=== PATIENT | female | born 2000 | race Caucasian/White ===

== ENCOUNTER 2018-10-03 15:51 | Emergency (ER) | payer SELFPAY ==
[2018-10-03 16:01] VITALS: BP 135/122
[2018-10-03] MEDS ORDERED: Ondansetron 4 MG Tab.DIS PO ONE (16:54)
--- NOTE | 2018-10-03 16:57 | EDM.PDOC ---
ED HPI GENERAL MEDICAL PROBLEM - General Chief Complaint: Gastrointestinal Problem Stated Complaint: VOMITING Time Seen by Provider: 10/03/18 16:22 Source of Information: Reports: Patient History Limitations: Reports: No Limitations - History of Present Illness INITIAL COMMENTS - FREE TEXT/NARRATIVE: Patient is a 18-year-old female presents ED complaining of persistent nausea and vomiting with diarrhea. Patient states last night approximately midnight she started having episodes of nausea and vomiting and has not been able to keep any liquids or foods down. Approx. 3:00 in the morning she started to have diarrhea. She has been attempting to drink fluids. Currently denies any dizziness with standing. There is no abdominal discomfort. Nor any documented fever although at times she's felt hot and cold with vomiting. There's been no ingestion of bad or questionable food. Patient ate chicken at approximately 9: 00 that evening. Denies recent out of country travel or recent sick exposures. No blood within her stool or dark tarry stools noted. States she is not . Last menstrual cycle August 22. She smokes a half pack per day. Alcohol use is none. Recreational drug use includes marijuana. She smokes approximately 1 g of marijuana a day. She denies any additional recreational drugs. She has a past medical history of bipolar and schizophrenia. She is on no medications. 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 Musculoskeletal History: Reports: Back Pain, Chronic Neurological History: Reports: Migraines Psychiatric History: Reports: Addiction, Anxiety, Depression Hematologic History: Reports: Anemia Dermatologic History: Reports: Eczema Social & Family History - Family History Family Medical History: Noncontributory - Tobacco Use Smoking Status *Q: Current Every Day Smoker Years of Tobacco use: 7 Packs/Tins Daily: 0.5 Used Tobacco, but Quit: No - Caffeine Use Caffeine Use: Reports: None - Recreational Drug Use Recreational Drug Use: Yes Drug Use in Last 12 Months: Yes Recreational Drug Type: Reports: Marijuana/Hashish Other Recreational Drug Type: used lat night, Recreational Drug Use Frequency: Daily - Living Situation & Occupation Living situation: Reports: Single Occupation: Unemployed ED ROS GENERAL - Review of Systems Review Of Systems: ROS reveals no pertinent complaints other than HPI. ED EXAM, GI/ABD - Physical Exam Exam: See Below Exam Limited By: No Limitations General Appearance: Alert, WD/WN, No Apparent Distress Ears: Hearing Grossly Normal Throat/Mouth: Normal Inspection, Normal Oropharynx, Normal Voice, No Airway Compromise Head: Atraumatic, Normocephalic Neck: Normal Inspection, Supple Respiratory/Chest: No Respiratory Distress, Lungs Clear, Normal Breath Sounds, No Accessory Muscle Use Cardiovascular: Normal Peripheral Pulses, Regular Rate, Rhythm, No Murmur GI/Abdominal Exam: Normal Bowel Sounds, Soft, No Organomegaly, No Distention, Tender (mild tenderness to the epigastric region with palpation. ) Back Exam: Normal Inspection Extremities: Normal Inspection, Normal Range of Motion, Non-Tender, No Pedal Edema, Normal Capillary Refill Neurological: Alert, Oriented, CN II-XII Intact, Normal Cognition, No Motor/ Sensory Deficits Psychiatric: Normal Affect, Normal Mood Skin Exam: Warm, Dry, Intact, Normal Color, No Rash Course - Vital Signs Last Recorded V/S: Last Vital Signs Temp 97 F 10/03/18 15:58 Pulse 76 10/03/18 15:58 Resp 20 10/03/18 15:58 BP 135/122 H 10/03/18 15:58 Pulse Ox 98 10/03/18 15:58 - Orders/Labs/Meds Meds: Medications Discontinued Medications Generic Name Dose Route Start Last Admin Trade Name Freq PRN Reason Stop Dose Admin Ondansetron HCl 4 mg 10/03/18 16:54 10/03/18 17:06 Zofran Odt PO 10/03/18 16:55 4 mg ONETIME ONE Administration Promethazine HCl 25 mg 10/03/18 17:57 10/03/18 18:02 Phenergan IM 10/03/18 17:58 25 mg ONETIME ONE Administration - Re-Assessments/Exams Free Text/Narrative Re-Assessment/Exam: Vital signs 101/66, heart rate 89, SPO2 100% on room air. Patient afebrile does not appear in acute distress. Differential diagnosis includes: Acute cholecystitis, pancreatitis, gastritis, bowel related, cyclic vomiting syndrome , and or gastroenteritis to name a few. Patient refuses any testing due to the cost. This includes a test. We will start with Zofran and have the patient sip on liquids. Suspect patient has a viral GI bug vs CVS and should resolve on its own accord. Patient states in the past she's never had CVS although it can occur any time. Especially since patient is having epigastric pain, unremitting nausea/vomiting, diarrhea, and headache which fits the diagnosis of CVS. 10/03/18 17:59 patient continued complaining of some nausea. Ordered Phenergan 25 mg IM. 10/03/18 19:19 Reassessment, patient states the nausea has subsided slightly. She is ready to be discharged home. I did offer additional testing prior to discharge she has refused. I suspect this is related to CVS. She was instructed to refrain from marijuana use. In addition we'll send her home with prescription for Zofran. Patient had no questions concerns agree with plan. Return precautions were discussed with the patient. Departure - Departure Time of Disposition: 19:20 Disposition: Home, Self-Care 01 Condition: Good Clinical Impression: Cyclic vomiting syndrome Qualifiers: Vomiting Intractability: non-intractable Nausea presence: with nausea Qualified Code(s): G43.A0 - Cyclical vomiting, not intractable - Discharge Information Prescriptions: Ondansetron [Zofran ODT] 4 mg PO Q6H PRN #10 tab.dis PRN Reason: Nausea/Vomiting Instructions: Nausea and Vomiting, Adult, Cyclic Vomiting Syndrome, Adult, Cannabinoid Hyperemesis Syndrome Referrals: PCP,None [Primary Care Provider] - Forms: ED Department Discharge Additional Instructions: Refrain from marijuana use. Utilize Zofran 4 mg ODT every 6 hours for nausea and vomiting. Stick with a clear liquid diet for the next 24-48 hours. Advance to a bland diet thereafter then to an normal diet when able. Follow-up with a primary care provider this week if symptoms persist. Return to the ED if you develop any new or worsening symptoms.
[2018-10-03] MEDS ORDERED: Promethazine 25 MG/ML SDV IM ONE (17:57)
== END 2018-10-03 19:28 | disposition home or self-care (01) ==
LOC: JD.ED 15:51
DX: G43.A0 Cyclical vomiting, in migraine, not intractable (principal); F17.210 Nicotine dependence, cigarettes, uncomplicated; Z88.6 Allergy status to analgesic agent
CPT/HCPCS: 96372; 99284; A9270; J2550; 99283

== ENCOUNTER 2019-10-24 19:14 | Emergency (ER) | payer MEDICAID, OTHER ==
[2019-10-24 19:42] VITALS: BP 108/78; PULSE 103
[2019-10-24] MEDS ORDERED: Sodium Chloride 0.9% 10 ML Syringe FLUSH PRN (19:44)
--- NOTE | 2019-10-24 19:44 | EDM.PDOC ---
ED HPI GENERAL MEDICAL PROBLEM - General Chief Complaint: SET UP OPERATOR Problem Stated Complaint: 3WKS PG VAGINAL BLEEDING Time Seen by Provider: 10/24/19 19:41 Source of Information: Reports: Patient, RN Notes Reviewed History Limitations: Reports: No Limitations - History of Present Illness INITIAL COMMENTS - FREE TEXT/NARRATIVE: Patient is a 19-year-old female who presents to the ED for evaluation of vaginal bleeding and . Patient states that she just found out she was yesterday. She does not really remember her last menstrual period, but thinks it has been about a month ago, she would put herself at 3 to 4 weeks at this time. She started bleeding today at 1400, and then developed some low abdominal cramping, mostly in the left lower quadrant. Patient states that she is not wearing a pad, but has used toilet paper in her underwear, and has had a changes about 5 times. Patient states that prior to the vaginal bleeding, she did have sex, and then developed the bleeding and pain after this. She also states that she is passing some small clot-like material. Patient did not take any sort of pain medications prior to arrival to the ER. She is not having any dysuria, urinary frequency or urgency, or any hematuria at this time. She states that she has had one other but it was a spontaneous miscarriage, so this would make her a A1. Lower Abdomen Pain Score (Numeric/FACES): 7 - Related Data Allergies Allergy/AdvReac Type Severity Reaction Status Date / Time coconut Allergy Intermediate Anaphylactic Verified 04/01/19 11:55 Shock bee venom protein (honey bee) Allergy Anaphylactic Verified 04/01/19 11:51 Shock ibuprofen AdvReac Vomiting Verified 04/13/19 10:45 Home Meds: Home Meds cephALEXin [Cephalexin] 500 mg PO TID #15 capsule 10/24/19 [Rx] Past Medical History HEENT History: Reports: Impaired Vision Cardiovascular History: Reports: Heart Murmur Respiratory History: Reports: Asthma Genitourinary History: Reports: Pyelonephritis SET UP OPERATOR History: Reports: , Spontaneous (x1), Other (See Below) : 2 Para: 0 Other SET UP OPERATOR History: patient has history of merena and has not had a period for 5-6 months. Musculoskeletal History: Reports: Back Pain, Chronic Neurological History: Reports: Migraines Psychiatric History: Reports: Addiction, Anxiety, Depression Hematologic History: Reports: Anemia Dermatologic History: Reports: Eczema - Infectious Disease History Infectious Disease History: Reports: Chicken Pox Social & Family History - Family History Family Medical History: Noncontributory - Caffeine Use Caffeine Use: Reports: None - Living Situation & Occupation Living situation: Reports: Single Occupation: Unemployed ED ROS GENERAL - Review of Systems Review Of Systems: See Below Constitutional: Denies: Fever, Chills Respiratory: Denies: Shortness of Breath Cardiovascular: Denies: Chest Pain GI/Abdominal: Denies: Abdominal Pain, Constipation, Diarrhea, Nausea, Vomiting : Reports: Pain (low pelvic pain into LLQ), Other (vaginal bleeding). Denies : Dysuria, Frequency, Urgency ED EXAM - Physical Exam Exam: See Below Exam Limited By: No Limitations General Appearance: Alert, WD/WN, No Apparent Distress, Anxious (pt does appear somewhat anxious on exam) Ears: Normal External Exam Nose: Normal Inspection Throat/Mouth: Normal Inspection, Normal Lips, Normal Teeth, Normal Gums, Normal Oropharynx, Normal Voice, No Airway Compromise Head: Atraumatic, Normocephalic Neck: Normal Inspection Respiratory/Chest: No Respiratory Distress, Lungs Clear, Normal Breath Sounds, No Accessory Muscle Use, Chest Non-Tender Cardiovascular: Normal Peripheral Pulses, Regular Rate, Rhythm, No Murmur GI/Abdominal Exam: Normal Bowel Sounds, Soft, No Distention, No Mass, Tender ( low abdomen, over LLQ and suprapubic) (Female) Exam: Normal External Exam, Vaginal Discharge (moderate amount of chung malodorous discharge), Other (Retained foreign body, cotton-like material visualized. This was dislodged, and does appear to be retained tampon.). No: Cervical Dilatation, Vaginal Bleeding, Vaginal Tears Heart Tones: Not Rogers Movement: Not Appreciated Extremities: Normal Inspection, Normal Capillary Refill Neurological: Alert, Oriented, Normal Cognition, No Motor/Sensory Deficits Psychiatric: Normal Affect, Normal Mood, Anxious Skin Exam: Warm, Dry, Intact, Normal Color, No Rash Course - Vital Signs Last Recorded V/S: Last Vital Signs Temp 98.2 F 10/24/19 19:40 Pulse 103 H 10/24/19 19:40 Resp 20 10/24/19 19:40 BP 108/78 10/24/19 19:40 Pulse Ox 100 10/24/19 19:40 - Orders/Labs/Meds Orders: Active Orders 24 hr Category Date Time Status Peripheral IV Care [RC] . DIRECTED Care 10/24/19 19:44 Active PATIENT RETYPE [BBK] Routine Lab 10/24/19 21:58 Ordered Sodium Chloride 0.9% [Saline Flush] Med 10/24/19 19:44 Active 10 ml FLUSH ASDIRECTED PRN Peripheral IV Insertion Adult [OM.PC] Stat Oth 10/24/19 19:44 Ordered Medication Orders Sodium Chloride (Saline Flush) 10 ml FLUSH ASDIRECTED PRN PRN Reason: Keep Vein Open Labs: Laboratory Tests 10/24/19 10/24/19 10/24/19 Range/Units 20:06 20:06 20:06 WBC 20.45 H (3.98-10.04) K/mm3 RBC 4.67 (3.98-5.22) M/mm3 Hgb 13.8 (11.2-15.7) gm/dl Hct 41.7 (34.1-44.9) % MCV 89.3 (79.4-94.8) fl MCH 29.6 (25.6-32.2) pg MCHC 33.1 (32.2-35.5) g/dl RDW Std Deviation 45.7 (36.4-46.3) fL Plt Count 370 H D (182-369) K/mm3 MPV 8.6 L (9.4-12.3) fl Neut % (Auto) 86.6 H (34.0-71.1) % Lymph % (Auto) 8.1 L (19.3-51.7) % Kend[place] % (Auto) 4.5 L (4.7-12.5) % Eos % (Auto) 0.4 L (0.7-5.8) Baso % (Auto) 0.2 (0.1-1.2) % Neut # (Auto) 17.70 H (1.56-6.13) K/mm3 Lymph # (Auto) 1.65 (1.18-3.74) K/mm3 Kendall # (Auto) 0.93 H (0.24-0.36) K/mm3 Eos # (Auto) 0.08 (0.04-0.36) K/mm3 Baso # (Auto) 0.05 (0.01-0.08) K/mm3 Manual Slide Review Abnormal smear C-Reactive Protein (<1.0) mg/dL HCG, Quant 79502.0 mIU/mL Urine Color (Yellow) Urine Appearance (Clear) Urine pH (5.0-8.0) Ur Specific [place] (1.005-1.030) Urine Protein (Negative) Urine Glucose (UA) (Negative) Urine Ketones (Negative) Urine Occult Blood (Negative) Urine Nitrite (Negative) Urine Bilirubin (Negative) Urine Urobilinogen (0.2-1.0) Ur Leukocyte Esterase (Negative) Urine RBC (0-5) /hpf Urine WBC (0-5) /hpf Ur Squamous Epith Cells (0-5) /hpf Amorphous Sediment (NOT SEEN) /hpf Urine Bacteria (FEW) /hpf Urine Mucus (FEW) /hpf Urine Opiates Screen (BWSSYP=193) Ur Buprenorphine Scrn (CUTOFF=10) Ur Oxycodone Screen (WWA0IC=465) Urine Methadone Screen (AVUNSJ=983) Ur Propoxyphene Screen (PFHQMF=001) Ur Barbiturates Screen (QUWMEF=427) Ur Tricyclics Screen (GXYKLR=420) Ur Phencyclidine Scrn (CUTOFF=25) Ur Amphetamine Screen (RAZMTY=847) U Methamphetamines Scrn (JGRBRJ=557) U Benzodiazepines Scrn (MWZCWE=829) U Cocaine Metab Screen (GFVAMJ=989) U Marijuana (THC) Screen (CUTOFF=50) Blood Type B NEGATIVE 10/24/19 10/24/19 10/24/19 Range/Units 20:06 21:45 21:45 WBC (3.98-10.04) K/mm3 RBC (3.98-5.22) M/mm3 Hgb (11.2-15.7) gm/dl Hct (34.1-44.9) % MCV (79.4-94.8) fl MCH (25.6-32.2) pg MCHC (32.2-35.5) g/dl RDW Std Deviation (36.4-46.3) fL Plt Count (182-369) K/mm3 MPV (9.4-12.3) fl Neut % (Auto) (34.0-71.1) % Lymph % (Auto) (19.3-51.7) % [place] % (Auto) (4.7-12.5) % Eos % (Auto) (0.7-5.8) Baso % (Auto) (0.1-1.2) % Neut # (Auto) (1.56-6.13) K/mm3 Lymph # (Auto) (1.18-3.74) K/mm3 [place] # (Auto) (0.24-0.36) K/mm3 Eos # (Auto) (0.04-0.36) K/mm3 Baso # (Auto) (0.01-0.08) K/mm3 Manual Slide Review C-Reactive Protein < 0.2 (<1.0) mg/dL HCG, Quant mIU/mL Urine Color Yellow (Yellow) Urine Appearance Slt cloudy H (Clear) Urine pH 7.0 (5.0-8.0) Ur Specific [place] 1.020 (1.005-1.030) Urine Protein Negative (Negative) Urine Glucose (UA) Negative (Negative) Urine Ketones Negative (Negative) Urine Occult Blood Negative (Negative) Urine Nitrite Negative (Negative) Urine Bilirubin Negative (Negative) Urine Urobilinogen 0.2 (0.2-1.0) Ur Leukocyte Esterase Negative (Negative) Urine RBC Not seen (0-5) /hpf Urine WBC 0-5 (0-5) /hpf Ur Squamous Epith Cells 5-10 H (0-5) /hpf Amorphous Sediment Many H (NOT SEEN) /hpf Urine Bacteria Rare (FEW) /hpf Urine Mucus Not seen (FEW) /hpf Urine Opiates Screen Negative (ILXGFL=525) Ur Buprenorphine Scrn Negative (CUTOFF=10) Ur Oxycodone Screen Negative (RKT1HK=127) Urine Methadone Screen Negative (ZPWTWF=582) Ur Propoxyphene Screen Negative (IIXJEQ=331) Ur Barbiturates Screen Negative (DDOLXE=282) Ur Tricyclics Screen Negative (WWDDKH=825) Ur Phencyclidine Scrn Negative (CUTOFF=25) Ur Amphetamine Screen Presumptive positive H (QAKUYX=989) U Methamphetamines Scrn Negative (FWPLZX=838) U Benzodiazepines Scrn Negative (MNBNOV=245) U Cocaine Metab Screen Negative (RZBDLK=618) U Marijuana (THC) Screen Presumptive positive H (CUTOFF=50) Blood Type Meds: Medications Generic Name Dose Route Start Last Admin Trade Name Freq PRN Reason Stop Dose Admin Sodium Chloride 10 ml 10/24/19 19:44 Saline Flush FLUSH ASDIRECTED PRN Keep Vein Open Discontinued Medications Generic Name Dose Route Start Last Admin Trade Name Diego PRN Reason Stop Dose Admin Acetaminophen 650 mg 10/24/19 19:50 10/24/19 20:14 Tylenol PO 10/24/19 19:51 650 mg NOW ONE Administration Ceftriaxone Sodium 1,000 mg/ 0 mg 10/24/19 23:13 Lidocaine HCl 0.5 ml IM 10/24/19 23:14 ONETIME ONE Ceftriaxone Sodium 1 gm/ 0 gm 10/24/19 23:35 Lidocaine HCl 2.1 ml IM 10/24/19 23:36 NOW STA Ceftriaxone Sodium 1 gm/ 100 mls @ 200 mls/hr 10/24/19 23:04 Sodium Chloride IV 10/24/19 23:33 ONETIME ONE - Re-Assessments/Exams Free Text/Narrative Re-Assessment/Exam: 10/24/19 19:59 Patient presents to the ED for evaluation of vaginal bleeding and abdominal pain and . Have ordered a quantitative hCG, transvaginal ultrasound, ABO Rh blood typing, and a CBC for initial management. IV will be placed in case we should need to give her IV fluids or other issues should arise. Patient was given 650 mg Tylenol for pain management as she states she would like to try something small and then progressed to more pain control if needed. 10/24/19 21:25 Patient's laboratory evaluation has come back, her hCG level is 74,508, her white blood cell count is impressively elevated at 20,000, with neutrophilia seen on the auto differential. Ultrasound does come back with a gestational age of 7 weeks 6 days, this is a single intrauterine gestation, with no subchorionic hemorrhage appreciated. Heart rate is 163 bpm. 10/24/19 22:43 Patient's urinalysis has returned, and is negative for any sort of infection at this time. Urine drug screen shows presumptive positive for amphetamines and marijuana. On vaginal exam, there was some chung-colored malodorous discharge, with a foreign body in the vagina, this was taken out, and does appear to be retained tampon at this time. Patient is not sure how long it could have been there, and she was having quite a bit of pain with retrieval. I did get a swab of the area for wet prep at this time. 10/24/19 23:26 Patient's wet prep did return, and demonstrates a moderate amount of clue cells , few white blood cells a few red blood cells, no trichomonas was seen. Lab results were discussed with Dr. Dey, in their entirety. He would suggest not starting the Flagyl as the patient is newly and she does not need to have her system overwhelmed, but we will start her on Keflex 500 mg 3 times daily to help clear up any lingering infection. And have her follow-up with OB as soon as possible, to establish care. I did talk with the patient regarding her positive amphetamine on her UA, she states that she herself has not used it in over 2 months, but is not sure if she could have been slipped this by someone else. I told her to be more careful about what she is putting in her body, as amphetamines are highly detrimental to babies, she does seem to understand at this time. I did also explain to the patient that she should probably not be smoking marijuana as well while . 10/24/19 23:37 Patient did report to me that she had some rather rough sex earlier this afternoon, developed vaginal bleeding/cramping after this. I did not visualize any sort of vaginal bleeding, but did appreciate a lot of chung malodorous discharge. Departure - Departure Time of Disposition: 23:27 Disposition: Home, Self-Care 01 Condition: Fair Clinical Impression: Pelvic pain during Retained tampon Qualifiers: Encounter type: initial encounter Qualified Code(s): T19.2XXA - Foreign body in vulva and vagina, initial encounter Vaginal discharge during Qualifiers: Trimester: first trimester Qualified Code(s): O26.891 - Other specified related conditions, first trimester - Discharge Information *PRESCRIPTION DRUG MONITORING PROGRAM REVIEWED*: No *COPY OF PRESCRIPTION DRUG MONITORING REPORT IN PATIENT [place]: No Prescriptions: cephALEXin [Cephalexin] 500 mg PO TID #15 capsule Instructions: Vaginal Foreign Body, Jels-an-Snak Referrals: PCP,None [Primary Care Provider] - Forms: ED Department Discharge Additional Instructions: You were evaluated in the ER today regarding your abdominal pain/vaginal issues in . You did have some labs drawn, and these were within normal limits, your hCG level was 74,508 , your blood type is B-. At some point during your you will require an injection of [place]. This can be determined at a later date with your SET UP OPERATOR. Your ultrasound demonstrated a single intrauterine with a heart rate of 163 bpm. You were also given a copy of your ultrasound to take to your OB appointment. Recommend that you do not lift anything heavier than a gallon of milk (5 lbs), do not engage in sexual activities, try to get as much pelvic rest as possible for the next few days. Please try not to exert yourself, rest and relax, and take it easy. On exam at the ER today. You did have a retained tampon within your vagina, this was extracted, you were given a dose of Rocephin in the ER, and will be given a prescription for cephalexin, 1 tab 3 times a day for the next 5 days to help further cover your symptoms. Please follow up with SET UP OPERATOR as soon as possible for re-evaluation of your symptoms. Please call our [facility] clinic at [phone] or [facility] [phone] to establish care and make an appointment. You may use Tylenol 500 mg every 6 hours as needed for further pain. Your urinalysis also positive for amphetamines and marijuana, recommend that you quit taking these substances during as they can be very detrimental to the fetus. Please return to the ED at any time if your symptoms change or worsen. Sepsis Event Note - Evaluation Sepsis Screening Result: No Definite Risk - Focused Exam Vital Signs: Vital Signs Temp Pulse Resp BP Pulse Ox 10/24/19 19:40 98.2 F 103 H 20 108/78 100 Date Exam was Performed: 10/24/19 Time Exam was Performed: 23:37 - My Orders Last 24 Hours: My Active Orders 10/24/19 19:44 Peripheral IV Care [RC] . DIRECTED Sodium Chloride 0.9% [Saline Flush] 10 ml FLUSH ASDIRECTED PRN Peripheral IV Insertion Adult [OM.PC] Stat 10/24/19 21:58 PATIENT RETYPE [BBK] Routine - Assessment/Plan Last 24 Hours: My Active Orders 10/24/19 19:44 Peripheral IV Care [RC] . DIRECTED Sodium Chloride 0.9% [Saline Flush] 10 ml FLUSH ASDIRECTED PRN Peripheral IV Insertion Adult [OM.PC] Stat 10/24/19 21:58 PATIENT RETYPE [BBK] Routine
[2019-10-24] MEDS ORDERED: Acetaminophen 325 MG Tab PO ONE (19:50)
--- NOTE | 2019-10-24 21:05 | US ---
First trimester obstetrical ultrasound: Multiple real-time images were obtained transvaginally. Comparison: No previous imaging for current . Dates: Current ultrasound: [facility] 06/05/20, gestational age 7 weeks 6 days Single intrauterine gestational sac is seen. Small embryo is identified. Amniotic fluid volume is normal. Yolk sac is present. No subchorionic hemorrhage is appreciated. Maternal ovaries are seen and appear within normal limits. Measurements: [place]-rump length: 1.46 cm - 7 weeks 6 days Heart rate: 163 BPM Impression: 1. Single intrauterine gestation. Dates as noted above. 2. No complicating process is seen by ultrasound at this time. Diagnostic code #1 Study was dictated in [place] Standard Time
[2019-10-24] MEDS ORDERED: cefTRIAXone 1 GM in Sodium Chloride 0.9% 100 ML IV ONE (23:04)
[2019-10-24] MEDS ORDERED: LIDOCAINE 1% IM ONE ×2 (23:13)
[2019-10-24] MEDS ORDERED: CEFTRIAXONE 1000 MG IM ONE ×2 (23:13)
[2019-10-24] MEDS ORDERED: cefTRIAXone 1 GM, Lidocaine 1% 2.1 ML IM STA ×2 (23:35)
== END 2019-10-24 23:52 | disposition home or self-care (01) ==
LOC: JD.ED 19:14
DX: O26.891 Other specified pregnancy related conditions, first trimester (principal); R10.2 Pelvic and perineal pain; N89.8 Other specified noninflammatory disorders of vagina; T19.2XXA Foreign body in vulva and vagina, initial encounter; Z91.030 Bee allergy status; Z91.018 Allergy to other foods; Z88.6 Allergy status to analgesic agent; Z3A.01 Less than 8 weeks gestation of pregnancy
CPT/HCPCS: 36415; 76817; 80306; 81001; 84702; 85025; 86140; 86900; 86901; 87210; 87808; 96372; 99284; A9270; J0696; J2001

== ENCOUNTER 2019-11-01 07:20 | Emergency (ER) | payer MEDICAID ==
[2019-11-01 07:43] VITALS: BP 118/78; PULSE 97
[2019-11-01] MEDS ORDERED: Sodium Chloride 0.9% 1,000 ML IV STA (07:58)
[2019-11-01] MEDS ORDERED: Ondansetron 4 MG/2 ML SDV IVPUSH ONE (07:58)
[2019-11-01] MEDS ORDERED: Sodium Chloride 0.9% 10 ML Syringe FLUSH PRN (07:58)
--- NOTE | 2019-11-01 08:11 | EDM.PDOC ---
ED HPI GENERAL MEDICAL PROBLEM - General Chief Complaint: Gastrointestinal Problem Stated Complaint: VOMITING AND ABD PAIN 10 WEEKS PREG Time Seen by Provider: 11/01/19 07:41 Source of Information: Reports: Patient, Family History Limitations: Reports: No Limitations - History of Present Illness INITIAL COMMENTS - FREE TEXT/NARRATIVE: The patient presents with nausea, vomiting and abdominal pain. This all started at 2am. She is about 9 weeks gestation. She is G1. She is unsure of her last normal menstrual cycle. She thinks maybe the end of August. She has no bleeding or spotting. She is very anxious. She still has her gallbladder and appendix. She has no dysuria. She has no fever, chills, cough , congestion, runny nose, chest pain or shortness of breath. Onset: Gradual Duration: Hour(s): (2am) Location: Reports: Abdomen Quality: Reports: Other (Cramping) Severity: Moderate Improves with: Reports: None Worsens with: Reports: None Associated Symptoms: Reports: Nausea/Vomiting. Denies: Chest Pain, Cough, Fever /Chills, Headaches, Shortness of Breath - Related Data Allergies Allergy/AdvReac Type Severity Reaction Status Date / Time coconut Allergy Intermediate Anaphylactic Verified 11/01/19 07:43 Shock bee venom protein (honey bee) Allergy Anaphylactic Verified 11/01/19 07:43 Shock ibuprofen AdvReac Vomiting Verified 11/01/19 07:43 Home Meds: Home Meds cephALEXin [Cephalexin] 500 mg PO TID #15 capsule 10/24/19 [Rx] Ondansetron [Zofran ODT] 4 mg PO Q6H PRN #20 tab.dis 11/01/19 [Rx] Past Medical History - Past Health History Medical/Surgical History: Denies Medical/Surgical History HEENT History: Reports: Impaired Vision Cardiovascular History: Reports: Heart Murmur Respiratory History: Reports: Asthma Genitourinary History: Reports: Pyelonephritis MACHINE REPAIR PERSON History: Reports: , Spontaneous (x1), Other (See Below) Other MACHINE REPAIR PERSON History: patient has history of merena and has not had a period for 5-6 months. Musculoskeletal History: Reports: Back Pain, Chronic Neurological History: Reports: Migraines Psychiatric History: Reports: Addiction, Anxiety, Depression Hematologic History: Reports: Anemia Dermatologic History: Reports: Eczema - Infectious Disease History Infectious Disease History: Reports: Chicken Pox Social & Family History - Family History Family Medical History: Noncontributory - Caffeine Use Caffeine Use: Reports: None - Living Situation & Occupation Living situation: Reports: Single Occupation: Unemployed ED ROS GENERAL - Review of Systems Review Of Systems: See Below Constitutional: Reports: No Symptoms HEENT: Reports: No Symptoms Respiratory: Reports: No Symptoms Cardiovascular: Reports: No Symptoms Endocrine: Reports: No Symptoms GI/Abdominal: Reports: Abdominal Pain, Nausea, Vomiting : Reports: No Symptoms Musculoskeletal: Reports: No Symptoms ED EXAM - Physical Exam Exam: See Below Exam Limited By: No Limitations General Appearance: Alert, Anxious Ears: Normal External Exam Nose: Normal Inspection Head: Atraumatic, Normocephalic Neck: Normal Inspection, Supple, Non-Tender Respiratory/Chest: No Respiratory Distress, Lungs Clear, Normal Breath Sounds Cardiovascular: Regular Rate, Rhythm, No Edema, No Murmur GI/Abdominal Exam: Soft, No Organomegaly, No Mass, Tender (Mild generalized tenderness) Course - Vital Signs Last Recorded V/S: Last Vital Signs Temp 98.1 F 11/01/19 07:40 Pulse 97 11/01/19 07:40 Resp 16 11/01/19 07:40 BP 118/78 11/01/19 07:40 Pulse Ox 100 11/01/19 07:40 - Orders/Labs/Meds Orders: Active Orders 24 hr Category Date Time Status Peripheral IV Care [RC] . DIRECTED Care 11/01/19 07:58 Active Sodium Chloride 0.9% [Saline Flush] Med 11/01/19 07:58 Active 10 ml FLUSH ASDIRECTED PRN ED Antiemetic Medication Reflex [OM.PC] Stat Oth 11/01/19 07:58 Ordered Peripheral IV Insertion Adult [OM.PC] Stat Oth 11/01/19 07:58 Ordered Medication Orders Sodium Chloride (Saline Flush) 10 ml FLUSH ASDIRECTED PRN PRN Reason: Keep Vein Open Last Admin: 11/01/19 08:10 Dose: 10 ml Labs: Laboratory Tests 11/01/19 11/01/19 11/01/19 Range/Units 08:07 08:07 08:07 WBC 13.36 H (3.98-10.04) K/mm3 RBC 4.31 (3.98-5.22) M/mm3 Hgb 12.7 (11.2-15.7) gm/dl Hct 37.7 (34.1-44.9) % MCV 87.5 (79.4-94.8) fl MCH 29.5 (25.6-32.2) pg MCHC 33.7 (32.2-35.5) g/dl RDW Std Deviation 45.1 (36.4-46.3) fL Plt Count 406 H (182-369) K/mm3 MPV 8.3 L (9.4-12.3) fl Neut % (Auto) 71.5 H (34.0-71.1) % Lymph % (Auto) 20.9 (19.3-51.7) % [place] % (Auto) 5.8 (4.7-12.5) % Eos % (Auto) 0.9 (0.7-5.8) Baso % (Auto) 0.5 (0.1-1.2) % Neut # (Auto) 9.55 H (1.56-6.13) K/mm3 Lymph # (Auto) 2.79 (1.18-3.74) K/mm3 [place] # (Auto) 0.78 H (0.24-0.36) K/mm3 Eos # (Auto) 0.12 (0.04-0.36) K/mm3 Baso # (Auto) 0.07 (0.01-0.08) K/mm3 Sodium 135 L (136-145) mEq/L Potassium 4.1 (3.5-5.1) mEq/L Chloride 99 (98-107) mEq/L Carbon Dioxide 20 L (21-32) mEq/L Anion Gap 20.1 H (5-15) BUN 8 (7-18) mg/dL Creatinine 0.7 (0.55-1.02) mg/dL Est Cr Clr Drug Dosing TNP Estimated GFR (MDRD) > 60 (>60) mL/min BUN/Creatinine Ratio 11.4 L (14-18) Glucose 99 (74-106) mg/dL Calcium 9.0 (8.5-10.1) mg/dL Total Bilirubin 0.4 (0.2-1.0) mg/dL AST 15 (15-37) U/L ALT 27 (14-59) U/L Alkaline Phosphatase 58 (46-116) U/L Total Protein 7.9 (6.4-8.2) g/dl Albumin 4.2 (3.4-5.0) g/dl Globulin 3.7 gm/dL Albumin/Globulin Ratio 1.1 (1-2) Lipase 73 (73-393) U/L HCG, Quant 796120.0 mIU/mL Urine Color (Yellow) Urine Appearance (Clear) Urine pH (5.0-8.0) Ur Specific [place] (1.005-1.030) Urine Protein (Negative) Urine Glucose (UA) (Negative) Urine Ketones (Negative) Urine Occult Blood (Negative) Urine Nitrite (Negative) Urine Bilirubin (Negative) Urine Urobilinogen (0.2-1.0) Ur Leukocyte Esterase (Negative) Urine Opiates Screen (KKODCB=646) Ur Buprenorphine Scrn (CUTOFF=10) Ur Oxycodone Screen (UEX7SC=801) Urine Methadone Screen (CWGRAW=737) Ur Propoxyphene Screen (DIXKYL=856) Ur Barbiturates Screen (JFHRFG=384) Ur Tricyclics Screen (OJWCOQ=625) Ur Phencyclidine Scrn (CUTOFF=25) Ur Amphetamine Screen (SJLPVN=252) U Methamphetamines Scrn (IQOWDY=668) U Benzodiazepines Scrn (CDDWIE=565) U Cocaine Metab Screen (NAERGA=727) U Marijuana (THC) Screen (CUTOFF=50) 11/01/19 11/01/19 Range/Units 09:10 09:16 WBC (3.98-10.04) K/mm3 RBC (3.98-5.22) M/mm3 Hgb (11.2-15.7) gm/dl Hct (34.1-44.9) % MCV (79.4-94.8) fl MCH (25.6-32.2) pg MCHC (32.2-35.5) g/dl RDW Std Deviation (36.4-46.3) fL Plt Count (182-369) K/mm3 MPV (9.4-12.3) fl Neut % (Auto) (34.0-71.1) % Lymph % (Auto) (19.3-51.7) % [place] % (Auto) (4.7-12.5) % Eos % (Auto) (0.7-5.8) Baso % (Auto) (0.1-1.2) % Neut # (Auto) (1.56-6.13) K/mm3 Lymph # (Auto) (1.18-3.74) K/mm3 [place] # (Auto) (0.24-0.36) K/mm3 Eos # (Auto) (0.04-0.36) K/mm3 Baso # (Auto) (0.01-0.08) K/mm3 Sodium (136-145) mEq/L Potassium (3.5-5.1) mEq/L Chloride (98-107) mEq/L Carbon Dioxide (21-32) mEq/L Anion Gap (5-15) BUN (7-18) mg/dL Creatinine (0.55-1.02) mg/dL Est Cr Clr Drug Dosing Estimated GFR (MDRD) (>60) mL/min BUN/Creatinine Ratio (14-18) Glucose (74-106) mg/dL Calcium (8.5-10.1) mg/dL Total Bilirubin (0.2-1.0) mg/dL AST (15-37) U/L ALT (14-59) U/L Alkaline Phosphatase (46-116) U/L Total Protein (6.4-8.2) g/dl Albumin (3.4-5.0) g/dl Globulin gm/dL Albumin/Globulin Ratio (1-2) Lipase (73-393) U/L HCG, Quant mIU/mL Urine Color Yellow (Yellow) Urine Appearance Clear (Clear) Urine pH 8.5 H (5.0-8.0) Ur Specific [place] 1.020 (1.005-1.030) Urine Protein Negative (Negative) Urine Glucose (UA) Negative (Negative) Urine Ketones Negative (Negative) Urine Occult Blood Negative (Negative) Urine Nitrite Negative (Negative) Urine Bilirubin Negative (Negative) Urine Urobilinogen 0.2 (0.2-1.0) Ur Leukocyte Esterase Negative (Negative) Urine Opiates Screen Negative (AODETP=882) Ur Buprenorphine Scrn Negative (CUTOFF=10) Ur Oxycodone Screen Negative (SOS4FS=941) Urine Methadone Screen Negative (VDLEWY=598) Ur Propoxyphene Screen Negative (ZYWTLM=391) Ur Barbiturates Screen Negative (SSXYDK=426) Ur Tricyclics Screen Negative (FWFQNL=529) Ur Phencyclidine Scrn Negative (CUTOFF=25) Ur Amphetamine Screen Negative (TSYWEX=048) U Methamphetamines Scrn Negative (YPKGUX=305) U Benzodiazepines Scrn Negative (ZGQBNS=357) U Cocaine Metab Screen Negative (CPHSJF=185) U Marijuana (THC) Screen Presumptive positive H (CUTOFF=50) Meds: Medications Generic Name Dose Route Start Last Admin Trade Name Freq PRN Reason Stop Dose Admin Sodium Chloride 10 ml 11/01/19 07:58 11/01/19 08:10 Saline Flush FLUSH 10 ml ASDIRECTED PRN Administration Keep Vein Open Discontinued Medications Generic Name Dose Route Start Last Admin Trade Name Freq PRN Reason Stop Dose Admin Sodium Chloride 1,000 mls @ 1,000 mls/hr 11/01/19 07:58 11/01/19 08:10 Normal Saline IV 11/01/19 08:57 1,000 mls/hr .BOLUS STA Administration Ondansetron HCl 4 mg 11/01/19 07:58 11/01/19 08:10 Zofran IVPUSH 11/01/19 07:59 4 mg ONETIME ONE Administration - Re-Assessments/Exams Free Text/Narrative Re-Assessment/Exam: 11/01/19 08:12 I ordered an IV NS 1L bolus, zofran 4mg IV, labs, UA and a transvaginal US. 11/01/19 10:47 Her WBC is elevated at 13.76. Her Na is low at 135. Her anion gap is elevated at 20.1. Her lipase is normal. Her HCG is normal at 149,256. Her UA shows no UTI. Her UDS is positive for marijuana. I will discharge her on some zofran. Departure - Departure Time of Disposition: 10:50 Disposition: Home, Self-Care 01 Condition: Good Clinical Impression: Qualifiers: Weeks of gestation: 9 weeks Qualified Code(s): Z3A.09 - 9 weeks gestation of - Discharge Information *PRESCRIPTION DRUG MONITORING PROGRAM REVIEWED*: Not Applicable *COPY OF PRESCRIPTION DRUG MONITORING REPORT IN PATIENT [place]: Not Applicable Prescriptions: Ondansetron [Zofran ODT] 4 mg PO Q6H PRN #20 tab.dis PRN Reason: Nausea\vomiting Referrals: PCP,None [Primary Care Provider] - Forms: ED Department Discharge Additional Instructions: Drink plenty of fluids. Take the zofran every 6 hours as needed for nausea and vomiting. Stop using marijuana. Follow up with [facility] at if you need help to stop. Follow up with your MACHINE REPAIR PERSON. Please return if you are worse. Sepsis Event Note - Evaluation Sepsis Screening Result: No Definite Risk - Focused Exam Vital Signs: Vital Signs Temp Pulse Resp BP Pulse Ox 11/01/19 07:40 98.1 F 97 16 118/78 100 Date Exam was Performed: 11/01/19 Time Exam was Performed: 10:47 - My Orders Last 24 Hours: My Active Orders 11/01/19 07:58 Peripheral IV Care [RC] . DIRECTED Sodium Chloride 0.9% [Saline Flush] 10 ml FLUSH ASDIRECTED PRN ED Antiemetic Medication Reflex [OM.PC] Stat Peripheral IV Insertion Adult [OM.PC] Stat - Assessment/Plan Last 24 Hours: My Active Orders 11/01/19 07:58 Peripheral IV Care [RC] . DIRECTED Sodium Chloride 0.9% [Saline Flush] 10 ml FLUSH ASDIRECTED PRN ED Antiemetic Medication Reflex [OM.PC] Stat Peripheral IV Insertion Adult [OM.PC] Stat
--- NOTE | 2019-11-01 08:55 | US ---
First trimester obstetrical ultrasound: Multiple real-time images were obtained transabdominally. Comparison: Previous first trimester obstetrical ultrasound of 10/24/19. Single intrauterine gestation is seen. Amniotic fluid volume is normal. Embryo is noted as well as small yolk sac. No subchorionic hemorrhage is identified. Both maternal ovaries are not seen on current study. Measurements: [place]-rump length: 2.13 cm - 8 weeks 6 days Heart rate: 165 bpm Impression: 1. Single intrauterine gestation. No complicating process is identified. Diagnostic code #1 This report was dictated in [place] Standard Time
== END 2019-11-01 11:33 | disposition home or self-care (01) ==
LOC: JD.ED 07:20
DX: O99.89 Other specified diseases and conditions complicating pregnancy, childbirth and the puerperium (principal); R10.84 Generalized abdominal pain; Z91.030 Bee allergy status; Z91.018 Allergy to other foods; Z88.6 Allergy status to analgesic agent; Z3A.09 9 weeks gestation of pregnancy
CPT/HCPCS: 36415; 76801; 80053; 80306; 81003; 83690; 84702; 85025; 96361; 96374; 99284; J2405; J7030; 99283

== ENCOUNTER 2019-11-10 08:45 | Emergency (ER) | payer MEDICAID ==
[2019-11-10 09:02] VITALS: BP 126/93; PULSE 79
[2019-11-10] MEDS ORDERED: Sodium Chloride 0.9% 10 ML Syringe FLUSH PRN (09:06)
[2019-11-10] MEDS ORDERED: Sodium Chloride 0.9% 1,000 ML IV STA (09:06)
[2019-11-10] MEDS ORDERED: Ondansetron 4 MG/2 ML SDV IVPUSH ONE ×2 (09:06→14:33)
[2019-11-10] MEDS ORDERED: HYDROmorphone 1 MG/ML Syringe IVPUSH ONE (09:08)
--- NOTE | 2019-11-10 09:43 | EDM.PDOC ---
ED HPI GENERAL MEDICAL PROBLEM - General Chief Complaint: Abdominal Pain Stated Complaint: 12 WEEKS PREG VOMITING AND DIARRHEA Time Seen by Provider: 11/10/19 08:57 Source of Information: Reports: Patient History Limitations: Reports: No Limitations - History of Present Illness INITIAL COMMENTS - FREE TEXT/NARRATIVE: The patient presents with nausea, vomiting, diarrhea, abdominal pain and anxiety with hyperventilation. This all started last night. She is about 9 to 10 weeks . She has been seen here before for the same. She is G1. She admits to using marijuana last night and meth 3 days ago. We have filled a 960 a couple of times on her. She is working with Lydia to help stop using. She has no fever, chills, cough or congestion. Onset: Gradual Duration: Day(s): Location: Reports: Abdomen Quality: Reports: Sharp Severity: Severe Improves with: Reports: None Worsens with: Reports: None Associated Symptoms: Reports: Nausea/Vomiting. Denies: Chest Pain, Cough, Fever /Chills, Headaches, Shortness of Breath Abdominal Pain Score (Numeric/FACES): 10 - Related Data Allergies Allergy/AdvReac Type Severity Reaction Status Date / Time coconut Allergy Intermediate Anaphylactic Verified 11/10/19 09:02 Shock bee venom protein (honey bee) Allergy Anaphylactic Verified 11/10/19 09:02 Shock ibuprofen AdvReac Vomiting Verified 11/10/19 09:02 Home Meds: Home Meds cephALEXin [Cephalexin] 500 mg PO TID #15 capsule 10/24/19 [Rx] Ondansetron [Zofran ODT] 4 mg PO Q6H PRN #20 tab.dis 11/01/19 [Rx] Past Medical History - Past Health History Medical/Surgical History: Denies Medical/Surgical History HEENT History: Reports: Impaired Vision Cardiovascular History: Reports: Heart Murmur Respiratory History: Reports: Asthma Genitourinary History: Reports: Pyelonephritis 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 Musculoskeletal History: Reports: Back Pain, Chronic Neurological History: Reports: Migraines Psychiatric History: Reports: Addiction, Anxiety, Depression Hematologic History: Reports: Anemia Dermatologic History: Reports: Eczema - Infectious Disease History Infectious Disease History: Reports: Chicken Pox Social & Family History - Family History Family Medical History: Noncontributory - Caffeine Use Caffeine Use: Reports: None - Recreational Drug Use Recreational Drug Use: Yes Recreational Drug Type: Reports: Marijuana/Hashish, Methamphetamine Other Recreational Drug Type: patient admits to using marijuana last night and meth 3 days ago. - Living Situation & Occupation Living situation: Reports: Single Occupation: Unemployed ED ROS GENERAL - Review of Systems Review Of Systems: See Below Constitutional: Reports: No Symptoms HEENT: Reports: No Symptoms Respiratory: Reports: No Symptoms Cardiovascular: Reports: No Symptoms Endocrine: Reports: No Symptoms GI/Abdominal: Reports: Abdominal Pain, Diarrhea, Nausea, Vomiting : Reports: No Symptoms Musculoskeletal: Reports: No Symptoms Skin: Reports: No Symptoms Neurological: Reports: No Symptoms Psychiatric: Reports: Anxiety ED EXAM, GI/ABD - Physical Exam Exam: See Below Exam Limited By: No Limitations General Appearance: Moderate Distress Ears: Normal External Exam Nose: Normal Inspection Head: Atraumatic, Normocephalic Neck: Normal Inspection Respiratory/Chest: No Respiratory Distress, Lungs Clear, Normal Breath Sounds Cardiovascular: Regular Rate, Rhythm, No Edema, No Murmur GI/Abdominal Exam: Soft, Non-Tender, No Organomegaly, No Mass Back Exam: Normal Inspection Extremities: Normal Inspection Neurological: Alert, Oriented, No Motor/Sensory Deficits Psychiatric: Anxious Course - Vital Signs Last Recorded V/S: Last Vital Signs Temp 96.8 F L 11/10/19 08:56 Pulse 79 11/10/19 08:56 Resp 32 H 11/10/19 08:56 BP 126/93 H 11/10/19 08:56 Pulse Ox 100 11/10/19 08:56 - Orders/Labs/Meds Orders: Active Orders 24 hr Category Date Time Status Peripheral IV Care [RC] . DIRECTED Care 11/10/19 09:06 Active Sodium Chloride 0.9% [Saline Flush] Med 11/10/19 09:06 Active 10 ml FLUSH ASDIRECTED PRN ED Antiemetic Medication Reflex [OM.PC] Stat Oth 11/10/19 09:06 Ordered Peripheral IV Insertion Adult [OM.PC] Stat Oth 11/10/19 09:06 Ordered Medication Orders Sodium Chloride (Saline Flush) 10 ml FLUSH ASDIRECTED PRN PRN Reason: Keep Vein Open Last Admin: 11/10/19 09:47 Dose: 10 ml Labs: Laboratory Tests 11/10/19 11/10/19 11/10/19 Range/Units 10:05 10:05 10:05 WBC 13.95 H (3.98-10.04) K/mm3 RBC 4.03 (3.98-5.22) M/mm3 Hgb 12.0 (11.2-15.7) gm/dl Hct 36.3 (34.1-44.9) % MCV 90.1 (79.4-94.8) fl MCH 29.8 (25.6-32.2) pg MCHC 33.1 (32.2-35.5) g/dl RDW Std Deviation 47.8 H (36.4-46.3) fL Plt Count 372 H (182-369) K/mm3 MPV 9.0 L (9.4-12.3) fl Neut % (Auto) 81.9 H (34.0-71.1) % Lymph % (Auto) 12.2 L (19.3-51.7) % Armstrong % (Auto) 5.1 (4.7-12.5) % Eos % (Auto) 0.3 L (0.7-5.8) Baso % (Auto) 0.2 (0.1-1.2) % Neut # (Auto) 11.43 H (1.56-6.13) K/mm3 Lymph # (Auto) 1.70 (1.18-3.74) K/mm3 Armstrong # (Auto) 0.71 H (0.24-0.36) K/mm3 Eos # (Auto) 0.04 (0.04-0.36) K/mm3 Baso # (Auto) 0.03 (0.01-0.08) K/mm3 Manual Slide Review Abnormal smear Sodium 136 (136-145) mEq/L Potassium 3.5 (3.5-5.1) mEq/L Chloride 102 (98-107) mEq/L Carbon Dioxide 16 L (21-32) mEq/L Anion Gap 21.5 H (5-15) BUN 8 (7-18) mg/dL Creatinine 0.6 (0.55-1.02) mg/dL Est Cr Clr Drug Dosing 104.08 mL/min Estimated GFR (MDRD) > 60 (>60) mL/min BUN/Creatinine Ratio 13.3 L (14-18) Glucose 129 H (74-106) mg/dL Calcium 9.0 (8.5-10.1) mg/dL Total Bilirubin 0.6 (0.2-1.0) mg/dL AST 17 (15-37) U/L ALT 26 (14-59) U/L Alkaline Phosphatase 60 (46-116) U/L Total Protein 7.7 (6.4-8.2) g/dl Albumin 4.2 (3.4-5.0) g/dl Globulin 3.5 gm/dL Albumin/Globulin Ratio 1.2 (1-2) Lipase 58 L (73-393) U/L HCG, Quant 470916.0 mIU/mL Urine Color (Yellow) Urine Appearance (Clear) Urine pH (5.0-8.0) Ur Specific Atwood (1.005-1.030) Urine Protein (Negative) Urine Glucose (UA) (Negative) Urine Ketones (Negative) Urine Occult Blood (Negative) Urine Nitrite (Negative) Urine Bilirubin (Negative) Urine Urobilinogen (0.2-1.0) Ur Leukocyte Esterase (Negative) Urine RBC (0-5) /hpf Urine WBC (0-5) /hpf Ur Squamous Epith Cells (0-5) /hpf Amorphous Sediment (NOT SEEN) /hpf Urine Bacteria (FEW) /hpf Urine Mucus (FEW) /hpf Urine Opiates Screen (OZMXLB=105) Ur Buprenorphine Scrn (CUTOFF=10) Ur Oxycodone Screen (HWA7WR=636) Urine Methadone Screen (RAHTHM=559) Ur Propoxyphene Screen (OEDPRR=979) Ur Barbiturates Screen (VBHDZP=122) Ur Tricyclics Screen (LGZLVA=580) Ur Phencyclidine Scrn (CUTOFF=25) Ur Amphetamine Screen (QHRXYI=445) U Methamphetamines Scrn (WGVFDU=531) U Benzodiazepines Scrn (RJQDUO=247) U Cocaine Metab Screen (BSTNBF=763) U Marijuana (THC) Screen (CUTOFF=50) Ethyl Alcohol 0.00 (0.00) gm% 11/10/19 11/10/19 Range/Units 13:06 13:06 WBC (3.98-10.04) K/mm3 RBC (3.98-5.22) M/mm3 Hgb (11.2-15.7) gm/dl Hct (34.1-44.9) % MCV (79.4-94.8) fl MCH (25.6-32.2) pg MCHC (32.2-35.5) g/dl RDW Std Deviation (36.4-46.3) fL Plt Count (182-369) K/mm3 MPV (9.4-12.3) fl Neut % (Auto) (34.0-71.1) % Lymph % (Auto) (19.3-51.7) % Armstrong % (Auto) (4.7-12.5) % Eos % (Auto) (0.7-5.8) Baso % (Auto) (0.1-1.2) % Neut # (Auto) (1.56-6.13) K/mm3 Lymph # (Auto) (1.18-3.74) K/mm3 Armstrong # (Auto) (0.24-0.36) K/mm3 Eos # (Auto) (0.04-0.36) K/mm3 Baso # (Auto) (0.01-0.08) K/mm3 Manual Slide Review Sodium (136-145) mEq/L Potassium (3.5-5.1) mEq/L Chloride (98-107) mEq/L Carbon Dioxide (21-32) mEq/L Anion Gap (5-15) BUN (7-18) mg/dL Creatinine (0.55-1.02) mg/dL Est Cr Clr Drug Dosing mL/min Estimated GFR (MDRD) (>60) mL/min BUN/Creatinine Ratio (14-18) Glucose (74-106) mg/dL Calcium (8.5-10.1) mg/dL Total Bilirubin (0.2-1.0) mg/dL AST (15-37) U/L ALT (14-59) U/L Alkaline Phosphatase (46-116) U/L Total Protein (6.4-8.2) g/dl Albumin (3.4-5.0) g/dl Globulin gm/dL Albumin/Globulin Ratio (1-2) Lipase (73-393) U/L HCG, Quant mIU/mL Urine Color Yellow (Yellow) Urine Appearance Clear (Clear) Urine pH 7.5 (5.0-8.0) Ur Specific Atwood 1.025 (1.005-1.030) Urine Protein 1+ H (Negative) Urine Glucose (UA) Negative (Negative) Urine Ketones 4+ H (Negative) Urine Occult Blood Negative (Negative) Urine Nitrite Negative (Negative) Urine Bilirubin Negative (Negative) Urine Urobilinogen 0.2 (0.2-1.0) Ur Leukocyte Esterase Negative (Negative) Urine RBC Not seen (0-5) /hpf Urine WBC 0-5 (0-5) /hpf Ur Squamous Epith Cells 5-10 H (0-5) /hpf Amorphous Sediment Many H (NOT SEEN) /hpf Urine Bacteria Rare (FEW) /hpf Urine Mucus Rare (FEW) /hpf Urine Opiates Screen Negative (OHBTZA=365) Ur Buprenorphine Scrn Negative (CUTOFF=10) Ur Oxycodone Screen Negative (WZG5VH=455) Urine Methadone Screen Negative (NESFYQ=850) Ur Propoxyphene Screen Negative (DQLUIW=448) Ur Barbiturates Screen Negative (QAYYLH=748) Ur Tricyclics Screen Negative (IXOCFK=344) Ur Phencyclidine Scrn Negative (CUTOFF=25) Ur Amphetamine Screen Negative (XSIVKV=850) U Methamphetamines Scrn Negative (IZZTTN=310) U Benzodiazepines Scrn Negative (HVJRJO=985) U Cocaine Metab Screen Negative (RASLVO=440) U Marijuana (THC) Screen Presumptive positive H (CUTOFF=50) Ethyl Alcohol (0.00) gm% Meds: Medications Generic Name Dose Route Start Last Admin Trade Name Freq PRN Reason Stop Dose Admin Sodium Chloride 10 ml 11/10/19 09:06 11/10/19 09:47 Saline Flush FLUSH 10 ml ASDIRECTED PRN Administration Keep Vein Open Discontinued Medications Generic Name Dose Route Start Last Admin Trade Name Freq PRN Reason Stop Dose Admin Acetaminophen 975 mg 11/10/19 11:03 Tylenol PO 11/10/19 11:04 ONETIME ONE Hydromorphone HCl 1 mg 11/10/19 09:08 11/10/19 09:46 Dilaudid IVPUSH 11/10/19 09:09 Not Given ONETIME ONE Sodium Chloride 1,000 mls @ 1,000 mls/hr 11/10/19 09:06 11/10/19 09:47 Normal Saline IV 11/10/19 10:05 1,000 mls/hr .BOLUS STA Administration Sodium Chloride 1,000 mls @ 1,000 mls/hr 11/10/19 10:59 11/10/19 11:45 Normal Saline IV 11/10/19 11:58 Not Given ONETIME ONE Sodium Chloride 1,000 mls @ 1,000 mls/hr 11/10/19 14:28 11/10/19 15:23 Normal Saline IV 11/10/19 15:27 1,000 mls/hr ONETIME ONE Administration Metoclopramide HCl 10 mg 11/10/19 11:18 11/10/19 11:24 Reglan IVPUSH 11/10/19 11:19 10 mg ONETIME ONE Administration Ondansetron HCl 4 mg 11/10/19 09:06 11/10/19 09:41 Zofran IVPUSH 11/10/19 09:07 4 mg ONETIME ONE Administration Ondansetron HCl 4 mg 11/10/19 14:33 11/10/19 15:23 Zofran IVPUSH 11/10/19 14:34 4 mg ONETIME ONE Administration Promethazine HCl 25 mg 11/10/19 16:07 11/10/19 16:15 Phenergan IM 11/10/19 16:08 25 mg ONETIME ONE Administration - Re-Assessments/Exams Free Text/Narrative Re-Assessment/Exam: 11/10/19 09:42 I ordered an IV NS 1L bolus, zofran 4mg IV, dilaudid 1mg IV, labs, UA and an US. 11/10/19 15:26 Her WBC was elevated at 13.95. Her anion gap is elevated at 21.5. Her glucose is elevated at 129. Her lipase is low at 58. Her HCG is 159,196. Her UA shows no UTI. Her urine drug screen is positive for marijuana. Her ETOH is 0. This is her 3rd visit for the same. She was positive for amphetamines in October. We have filled a 960. I feel she needs to be committed for addiction. She is a risk to herself and her baby. 11/10/19 15:29 Rox our social worker masters did call [facility] and they did not feel she could be admitted to the [facility]. 11/10/19 17:30 [facility] 11/10/19 17:33 Samuel and [facility] Renee say they cannot take her. Marble Cutter Operator from [facility] came back and they assessed her and called the [facility]. They may be able to take her now. I called and talked with Dr Bradley and he accepted the patient. She will be going by to get some help at the [facility]. Departure - Departure Time of Disposition: 17:35 Disposition: DC/Tfer to Psych Hosp/Unit [facility] Condition: Poor Clinical Impression: Drug abuse, Marijuana abuse, Methamphetamine abuse Qualifiers: Weeks of gestation: 9 weeks Qualified Code(s): Z3A.09 - 9 weeks gestation of - Discharge Information Referrals: PCP,None [Primary Care Provider] - Forms: ED Department Discharge Sepsis Event Note - Evaluation Sepsis Screening Result: No Definite Risk - Focused Exam Vital Signs: Vital Signs Temp Pulse Resp BP Pulse Ox 11/10/19 08:56 96.8 F L 79 32 H 126/93 H 100 Date Exam was Performed: 11/10/19 Time Exam was Performed: 17:30 - My Orders Last 24 Hours: My Active Orders 11/10/19 09:06 Peripheral IV Care [RC] . DIRECTED Sodium Chloride 0.9% [Saline Flush] 10 ml FLUSH ASDIRECTED PRN ED Antiemetic Medication Reflex [OM.PC] Stat Peripheral IV Insertion Adult [OM.PC] Stat - Assessment/Plan Last 24 Hours: My Active Orders 11/10/19 09:06 Peripheral IV Care [RC] . DIRECTED Sodium Chloride 0.9% [Saline Flush] 10 ml FLUSH ASDIRECTED PRN ED Antiemetic Medication Reflex [OM.PC] Stat Peripheral IV Insertion Adult [OM.PC] Stat
--- NOTE | 2019-11-10 10:41 | US ---
First trimester obstetrical ultrasound: Multiple real-time images were obtained transabdominally. Comparison: Previous obstetrical ultrasounds are available, most recent exam is 11/01/19. Dates: Current ultrasound: KYUNG 06/05/20, gestational age 10 weeks 2 days Earliest ultrasound (10/24/19): KYUNG 06/05/20, gestational age 10 weeks 2 days Single intrauterine gestation is seen. Amniotic fluid is normal. Embryo is noted. No subchorionic hemorrhage is identified. Maternal ovaries are within normal limits. Measurements: [employer]-rump length: 3.34 cm - 10 weeks 2 days Heart rate: 144 bpm Impression: 1. Single intrauterine gestation. Dates as noted above. 2. No complicating process is seen at this time by ultrasound exam. Diagnostic code #1 This report was dictated in [place] Standard Time
[2019-11-10] MEDS ORDERED: Sodium Chloride 0.9% 1,000 ML IV ONE ×2 (10:59→14:28)
[2019-11-10] MEDS ORDERED: Acetaminophen 325 MG Tab PO ONE (11:03)
[2019-11-10] MEDS ORDERED: Metoclopramide 10 MG/2 ML SDV IVPUSH ONE (11:18)
[2019-11-10] MEDS ORDERED: Promethazine 25 MG/ML SDV IM ONE (16:07)
== END 2019-11-10 18:48 | disposition home or self-care (01) ==
LOC: JD.ED 08:45
DX: O99.321 Drug use complicating pregnancy, first trimester (principal); F15.10 Other stimulant abuse, uncomplicated; F12.10 Cannabis abuse, uncomplicated; J45.909 Unspecified asthma, uncomplicated; Z91.018 Allergy to other foods; Z91.030 Bee allergy status; Z88.6 Allergy status to analgesic agent; Z3A.12 12 weeks gestation of pregnancy
CPT/HCPCS: 36415; 76801; 80053; 80306; 80307; 81001; 83690; 84702; 85025; 96361; 96374; 96375; 96376; 99285; J2405; J2550; J2765; J7030

== ENCOUNTER 2019-12-13 10:57 | Emergency (ER) | payer MEDICAID ==
[2019-12-13] MEDS ORDERED: Ondansetron 4 MG/2 ML SDV IVPUSH ONE ×2 (11:40→13:28)
[2019-12-13] MEDS ORDERED: Sodium Chloride 0.9% 10 ML Syringe FLUSH PRN (11:40)
[2019-12-13] MEDS: Sodium Chloride 0.9% 1,000 ML IV SCH ×2 (12:16→14:05)
--- NOTE | 2019-12-13 12:56 | EDM.PDOC ---
ED HPI GENERAL MEDICAL PROBLEM - General Chief Complaint: Gastrointestinal Problem Stated Complaint: VOMITING,SOB, 20WKS CHEST PAIN. Time Seen by Provider: 12/13/19 11:38 Source of Information: Reports: Patient History Limitations: Reports: No Limitations - History of Present Illness INITIAL COMMENTS - FREE TEXT/NARRATIVE: Patient is a 19-year-old female who presents to the ER with complaints of nausea , vomiting, and pain in her mid upper chest. She states that the symptoms began after she ate fried food last night. Patient is approximately 16 weeks . Patient states that she has been having ongoing issues with nausea and vomiting throughout the . States that she is normally able to manage it at home, however when it worsens she does have to come to the ER for treatment. She has had no uterine cramping or bleeding. Patient has been seen in the ER numerous times for similar symptoms. 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 Patient states that she has not used methamphetamine since before her last visit to the ER which was on November 09. She admits to smoking marijuana about 4 days ago. She has had no fever, chills, or diarrhea. Denies abdominal pain. - Related Data Allergies Allergy/AdvReac Type Severity Reaction Status Date / Time coconut Allergy Intermediate Anaphylactic Verified 12/13/19 11:18 Shock bee venom protein (honey bee) Allergy Anaphylactic Verified 12/13/19 11:18 Shock ibuprofen AdvReac Vomiting Verified 12/13/19 11:18 Home Meds: Home Meds Nitrofurantoin Monohyd/M-Cryst [Macrobid 100 mg Capsule] 100 mg PO BID #10 capsule 12/13/19 [Rx] Ondansetron [Zofran ODT] 4 mg PO Q6H PRN #10 tab.dis 12/13/19 [Rx] Past Medical History - Past Health History Medical/Surgical History: Denies Medical/Surgical History HEENT History: Reports: Impaired Vision Cardiovascular History: Reports: Heart Murmur Respiratory History: Reports: Asthma Genitourinary History: Reports: Pyelonephritis [employer] History: Reports: , Spontaneous , Other (See Below) Other [employer] History: patient has history of merena and has not had a period for 5-6 months. Musculoskeletal History: Reports: Back Pain, Chronic Neurological History: Reports: Migraines Psychiatric History: Reports: Addiction, Anxiety, Depression Hematologic History: Reports: Anemia Dermatologic History: Reports: Eczema - Infectious Disease History Infectious Disease History: Reports: Chicken Pox Social & Family History - Family History Family Medical History: Noncontributory - Tobacco Use Smoking Status *Q: Unknown Ever Smoked - Caffeine Use Caffeine Use: Reports: None - Recreational Drug Use Recreational Drug Use: Yes Drug Use in Last 12 Months: Yes Recreational Drug Type: Reports: Marijuana/Hashish Recreational Drug Use Frequency: Patient Refuses To Answer - Living Situation & Occupation Living situation: Reports: Single Occupation: Unemployed ED ROS GENERAL - Review of Systems Review Of Systems: Comprehensive ROS is negative, except as noted in HPI. ED EXAM, GI/ABD - Physical Exam Exam: See Below Exam Limited By: No Limitations General Appearance: Alert, WD/WN, Mild Distress Respiratory/Chest: No Respiratory Distress, Lungs Clear, Normal Breath Sounds, No Accessory Muscle Use, Chest Non-Tender Cardiovascular: Normal Peripheral Pulses, Regular Rate, Rhythm, No Edema, No Gallop, No JVD, No Murmur, No Rub GI/Abdominal Exam: Normal Bowel Sounds, Soft, Non-Tender, No Organomegaly, No Distention, No Abnormal Bruit, No Mass, Pelvis Stable (Female) Exam: Other ( heart tones 154) Neurological: Alert, Oriented, CN II-XII Intact, Normal Cognition, Normal Gait, Normal Reflexes, No Motor/Sensory Deficits Psychiatric: Normal Affect, Normal Mood Skin Exam: Warm, Dry, Intact, Normal Color, No Rash Course - Vital Signs Last Recorded V/S: Last Vital Signs Temp 98.1 F 12/13/19 16:17 Pulse 65 12/13/19 16:17 Resp 13 12/13/19 11:10 BP 103/62 12/13/19 16:17 Pulse Ox 100 12/13/19 16:17 - Orders/Labs/Meds Orders: Active Orders 24 hr Category Date Time Status Heart Tones [RC] ASDIRECTED Care 12/13/19 11:43 Active Peripheral IV Care [RC] . DIRECTED Care 12/13/19 11:40 Active CULTURE URINE [RM] Stat Lab 12/13/19 14:08 Ordered Peripheral IV Insertion Adult [OM.PC] Stat Oth 12/13/19 11:39 Ordered Labs: Laboratory Tests 12/13/19 12/13/19 12/13/19 Range/Units 12:02 12:02 12:44 WBC 19.07 H (3.98-10.04) K/mm3 RBC 3.89 L (3.98-5.22) M/mm3 Hgb 11.7 (11.2-15.7) gm/dl Hct 35.1 (34.1-44.9) % MCV 90.2 (79.4-94.8) fl MCH 30.1 (25.6-32.2) pg MCHC 33.3 (32.2-35.5) g/dl RDW Std Deviation 44.3 (36.4-46.3) fL Plt Count 300 (182-369) K/mm3 MPV 9.2 L (9.4-12.3) fl Neut % (Auto) 91.3 H (34.0-71.1) % Lymph % (Auto) 5.2 L (19.3-51.7) % [place] % (Auto) 2.8 L (4.7-12.5) % Eos % (Auto) 0.2 L (0.7-5.8) Baso % (Auto) 0.2 (0.1-1.2) % Neut # (Auto) 17.41 H (1.56-6.13) K/mm3 Lymph # (Auto) 1.00 L (1.18-3.74) K/mm3 [place] # (Auto) 0.54 H (0.24-0.36) K/mm3 Eos # (Auto) 0.03 L (0.04-0.36) K/mm3 Baso # (Auto) 0.03 (0.01-0.08) K/mm3 Manual Slide Review Abnormal smear Sodium (136-145) mEq/L Potassium (3.5-5.1) mEq/L Chloride (98-107) mEq/L Carbon Dioxide (21-32) mEq/L Anion Gap (5-15) BUN (7-18) mg/dL Creatinine (0.55-1.02) mg/dL Est Cr Clr Drug Dosing mL/min Estimated GFR (MDRD) (>60) mL/min BUN/Creatinine Ratio (14-18) Glucose (74-106) mg/dL Calcium (8.5-10.1) mg/dL Total Bilirubin (0.2-1.0) mg/dL AST (15-37) U/L ALT (14-59) U/L Alkaline Phosphatase (46-116) U/L C-Reactive Protein (<1.0) mg/dL Total Protein (6.4-8.2) g/dl Albumin (3.4-5.0) g/dl Globulin gm/dL Albumin/Globulin Ratio (1-2) Lipase (73-393) U/L HCG, Quant mIU/mL Urine Color Yellow (Yellow) Urine Appearance Slt cloudy H (Clear) Urine pH 7.5 (5.0-8.0) Ur Specific [place] 1.025 (1.005-1.030) Urine Protein Trace H (Negative) Urine Glucose (UA) Negative (Negative) Urine Ketones 3+ H (Negative) Urine Occult Blood Negative (Negative) Urine Nitrite Negative (Negative) Urine Bilirubin Negative (Negative) Urine Urobilinogen 0.2 (0.2-1.0) Ur Leukocyte Esterase Trace H (Negative) Urine RBC 0-5 (0-5) /hpf Urine WBC 5-10 H (0-5) /hpf Ur Squamous Epith Cells 10-20 H (0-5) /hpf Amorphous Sediment Many H (NOT SEEN) /hpf Urine Bacteria Few (FEW) /hpf Urine Mucus Few (FEW) /hpf Urine Opiates Screen Negative (FTGUCL=855) Ur Buprenorphine Scrn Negative (CUTOFF=10) Ur Oxycodone Screen Negative (XDV7CK=469) Urine Methadone Screen Negative (WCJVON=740) Ur Propoxyphene Screen Negative (VQUVLW=740) Ur Barbiturates Screen Negative (LFNRWF=559) Ur Tricyclics Screen Negative (XVLYXB=905) Ur Phencyclidine Scrn Negative (CUTOFF=25) Ur Amphetamine Screen Negative (JJGWHH=986) U Methamphetamines Scrn Negative (JEQZRY=670) U Benzodiazepines Scrn Negative (WQGPLG=948) U Cocaine Metab Screen Negative (XNZAOI=954) U Marijuana (THC) Screen Presumptive positive H (CUTOFF=50) 12/13/19 12/13/19 Range/Units 12:44 12:44 WBC (3.98-10.04) K/mm3 RBC (3.98-5.22) M/mm3 Hgb (11.2-15.7) gm/dl Hct (34.1-44.9) % MCV (79.4-94.8) fl MCH (25.6-32.2) pg MCHC (32.2-35.5) g/dl RDW Std Deviation (36.4-46.3) fL Plt Count (182-369) K/mm3 MPV (9.4-12.3) fl Neut % (Auto) (34.0-71.1) % Lymph % (Auto) (19.3-51.7) % [place] % (Auto) (4.7-12.5) % Eos % (Auto) (0.7-5.8) Baso % (Auto) (0.1-1.2) % Neut # (Auto) (1.56-6.13) K/mm3 Lymph # (Auto) (1.18-3.74) K/mm3 [place] # (Auto) (0.24-0.36) K/mm3 Eos # (Auto) (0.04-0.36) K/mm3 Baso # (Auto) (0.01-0.08) K/mm3 Manual Slide Review Sodium 137 (136-145) mEq/L Potassium 3.5 (3.5-5.1) mEq/L Chloride 102 (98-107) mEq/L Carbon Dioxide 18 L (21-32) mEq/L Anion Gap 20.5 H (5-15) BUN 6 L (7-18) mg/dL Creatinine 0.5 L (0.55-1.02) mg/dL Est Cr Clr Drug Dosing 127.84 mL/min Estimated GFR (MDRD) > 60 (>60) mL/min BUN/Creatinine Ratio 12.0 L (14-18) Glucose 118 H (74-106) mg/dL Calcium 8.3 L (8.5-10.1) mg/dL Total Bilirubin 0.2 (0.2-1.0) mg/dL AST 20 (15-37) U/L ALT 19 (14-59) U/L Alkaline Phosphatase 59 (46-116) U/L C-Reactive Protein 0.6 (<1.0) mg/dL Total Protein 7.2 (6.4-8.2) g/dl Albumin 3.4 (3.4-5.0) g/dl Globulin 3.8 gm/dL Albumin/Globulin Ratio 0.9 L (1-2) Lipase 50 L (73-393) U/L HCG, Quant 56751.0 mIU/mL Urine Color (Yellow) Urine Appearance (Clear) Urine pH (5.0-8.0) Ur Specific [place] (1.005-1.030) Urine Protein (Negative) Urine Glucose (UA) (Negative) Urine Ketones (Negative) Urine Occult Blood (Negative) Urine Nitrite (Negative) Urine Bilirubin (Negative) Urine Urobilinogen (0.2-1.0) Ur Leukocyte Esterase (Negative) Urine RBC (0-5) /hpf Urine WBC (0-5) /hpf Ur Squamous Epith Cells (0-5) /hpf Amorphous Sediment (NOT SEEN) /hpf Urine Bacteria (FEW) /hpf Urine Mucus (FEW) /hpf Urine Opiates Screen (OLRDSI=566) Ur Buprenorphine Scrn (CUTOFF=10) Ur Oxycodone Screen (RDT5DF=171) Urine Methadone Screen (PANTLF=922) Ur Propoxyphene Screen (WXEJEL=686) Ur Barbiturates Screen (UTRPLI=397) Ur Tricyclics Screen (WOXSPE=578) Ur Phencyclidine Scrn (CUTOFF=25) Ur Amphetamine Screen (RHFOQF=704) U Methamphetamines Scrn (UBGBJO=584) U Benzodiazepines Scrn (LYCJDS=986) U Cocaine Metab Screen (LNMKXC=141) U Marijuana (THC) Screen (CUTOFF=50) Meds: Medications Discontinued Medications Generic Name Dose Route Start Last Admin Trade Name Freq PRN Reason Stop Dose Admin Al Hydroxide/Mg Hydroxide 30 0 ml 12/13/19 13:55 12/13/19 14:14 ml/ Lidocaine HCl 15 ml PO 12/13/19 13:56 45 ml ONETIME ONE Administration Sodium Chloride 1,000 mls @ 999 mls/hr 12/13/19 11:45 12/13/19 14:05 Normal Saline IV 999 mls/hr ASDIRECTED NELIA Administration Sodium Chloride 1,000 mls @ 999 mls/hr 12/13/19 13:30 12/13/19 14:10 Normal Saline IV 999 mls/hr ASDIRECTED NELIA Administration Sodium Chloride 1,000 mls @ 999 mls/hr 12/13/19 13:30 Normal Saline IV ASDIRECTED NELIA Ondansetron HCl 4 mg 12/13/19 11:40 12/13/19 12:16 Zofran IVPUSH 12/13/19 11:41 4 mg ONETIME ONE Administration Ondansetron HCl 4 mg 12/13/19 13:28 12/13/19 14:01 Zofran IVPUSH 12/13/19 13:29 4 mg ONETIME ONE Administration Promethazine HCl 25 mg 12/13/19 14:16 12/13/19 14:36 Phenergan IM 12/13/19 14:17 25 mg ONETIME ONE Administration Sodium Chloride 10 ml 12/13/19 11:40 12/13/19 12:16 Saline Flush FLUSH 10 ml ASDIRECTED PRN Administration Keep Vein Open - Re-Assessments/Exams Free Text/Narrative Re-Assessment/Exam: 12/13/19 1600 Patient received a total of 2 L of IV fluid, 2 doses of Zofran, and IM Phenergan. She states she is feeling much better and would be comfortable to go home at this time. Urinalysis does show trace leukocyte esterase, 5-10 WBCs as well as 10-20 squamous epithelial cells. While this may be contamination, since patient is we will err on the side of caution and start treatment with Macrobid. Urine has been sent for culture. I will send her home with a prescription for Zofran as needed for nausea. Discharge instructions as documented. Departure - Departure Time of Disposition: 15:54 Disposition: Home, Self-Care 01 Condition: Fair Clinical Impression: Vomiting during , UTI, Urinary tract infectious disease - Discharge Information *PRESCRIPTION DRUG MONITORING PROGRAM REVIEWED*: No *COPY OF PRESCRIPTION DRUG MONITORING REPORT IN PATIENT [place]: No Prescriptions: Nitrofurantoin Monohyd/M-Cryst [Macrobid 100 mg Capsule] 100 mg PO BID #10 capsule Ondansetron [Zofran ODT] 4 mg PO Q6H PRN #10 tab.dis PRN Reason: Nausea/Vomiting Instructions: Nausea and Vomiting, Adult, [id number], and Urinary Tract Infection Referrals: Dennise Gonzales MD [Physician] - Forms: ED Department Discharge Additional Instructions: You were seen in the emergency department today for nausea and vomiting with your . Your work-up included blood work, as well as a urinalysis. Your blood work showed that you are dehydrated but was otherwise unremarkable. Urinalysis does show that you have a possible early urinary tract infection. The urine has been sent for culture to confirm this, however to err on the side of the caution you have been started on Macrobid. Take this as prescribed. A prescription for Zofran has also been sent. You may use that every 6 hours as needed for vomiting. If your symptoms should worsen or you develop any new symptoms of concern, please do not hesitate to return to the emergency department. I do also recommend that you call to reschedule a follow-up appointment with your [employer]. Sepsis Event Note - Evaluation Sepsis Screening Result: No Definite Risk - Focused Exam Vital Signs: Vital Signs Temp Pulse Resp BP Pulse Ox 12/13/19 16:17 98.1 F 65 103/62 100 12/13/19 11:10 98.5 F 71 13 102/80 10 L Date Exam was Performed: 12/13/19 Time Exam was Performed: 19:33 - My Orders Last 24 Hours: My Active Orders 12/13/19 11:39 Peripheral IV Insertion Adult [OM.PC] Stat 12/13/19 11:40 Peripheral IV Care [RC] . DIRECTED 12/13/19 11:43 Heart Tones [RC] ASDIRECTED 12/13/19 14:08 CULTURE URINE [RM] Stat - Assessment/Plan Last 24 Hours: My Active Orders 12/13/19 11:39 Peripheral IV Insertion Adult [OM.PC] Stat 12/13/19 11:40 Peripheral IV Care [RC] . DIRECTED 12/13/19 11:43 Heart Tones [RC] ASDIRECTED 12/13/19 14:08 CULTURE URINE [RM] Stat
[2019-12-13] MEDS ORDERED: Sodium Chloride 0.9% 1,000 ML IV SCH ×2 (13:30)
[2019-12-13] MEDS ORDERED: Alum Hydrox/Mag Hydrox/Simeth 30 ML, Lidocaine 2% 15 ML PO ONE ×2 (13:55)
[2019-12-13] MEDS ORDERED: Promethazine 25 MG/ML SDV IM ONE (14:16)
[2019-12-13 16:19] VITALS: BP 103/62; PULSE 65
== END 2019-12-13 16:55 | disposition home or self-care (01) ==
LOC: JD.ED 10:57
DX: O23.42 Unspecified infection of urinary tract in pregnancy, second trimester (principal); O21.9 Vomiting of pregnancy, unspecified; Z91.018 Allergy to other foods; Z91.030 Bee allergy status; Z88.8 Allergy status to other drugs, medicaments and biological substances; Z3A.16 16 weeks gestation of pregnancy
CPT/HCPCS: 36415; 80053; 80306; 81001; 83690; 84702; 85025; 86140; 87086; 87088; 96361; 96372; 96374; 96376; 99284; A9270; J2405; J2550; J7030; 99283

== ENCOUNTER 2020-01-30 18:21 | Emergency (ER) | payer MEDICAID ==
[2020-01-30 18:32] VITALS: BP 132/96; PULSE 85
[2020-01-30] MEDS ORDERED: Ondansetron 4 MG/2 ML SDV IM ONE (18:38)
--- NOTE | 2020-01-30 18:46 | EDM.PDOC ---
ED HPI GENERAL MEDICAL PROBLEM - General Chief Complaint: Abdominal Pain Stated Complaint: ABDOMINAL PAIN Time Seen by Provider: 01/30/20 18:28 Source of Information: Reports: Patient, Old Records, RN Notes Reviewed History Limitations: Reports: No Limitations - History of Present Illness INITIAL COMMENTS - FREE TEXT/NARRATIVE: Patient is a 19-year-old female who presents to the ED for the evaluation of abdominal pain. The patient states she is 23 weeks . She notes this is her second and had not carried the first 1 to term, and had a spontaneous . Patient notes that 2 nights ago she developed some right- sided abdominal pain, she points to her right flank as the source of the pain, she is complaining of some nausea and vomiting and not been able to keep much down at all for foods or fluids. She states that the pain is sharp/burning and hurts all the time. She does not believe she is constipated or has any sort of diarrhea. 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 She admits to smoking marijuana last night. She states her CLERGY MEMBER is Dr. Gonzales. She states that she has not felt the baby move in 2 days, after the pain developed. She denies any fever/chills , cough/shortness of breath, or other sick-like symptoms. Right Upper Abdomen Pain Score (Numeric/FACES): 10 - Related Data Allergies Allergy/AdvReac Type Severity Reaction Status Date / Time coconut Allergy Intermediate Anaphylactic Verified 12/13/19 11:18 Shock bee venom protein (honey bee) Allergy Anaphylactic Verified 12/13/19 11:18 Shock ibuprofen AdvReac Vomiting Verified 12/13/19 11:18 Home Meds: Home Meds Nitrofurantoin Monohyd/M-Cryst [Macrobid 100 mg Capsule] 100 mg PO BID #10 capsule 12/13/19 [Rx] Ondansetron [Zofran ODT] 4 mg PO Q6H PRN #10 tab.dis 01/30/20 [Rx] Past Medical History HEENT History: Reports: Impaired Vision Cardiovascular History: Reports: Heart Murmur Respiratory History: Reports: Asthma Genitourinary History: Reports: Pyelonephritis CLERGY MEMBER History: Reports: , Spontaneous , Other (See Below) : 2 Para: 0 LMP (Approximate): Musculoskeletal History: Reports: Back Pain, Chronic Neurological History: Reports: Migraines Psychiatric History: Reports: Addiction, Anxiety, Depression Hematologic History: Reports: Anemia Dermatologic History: Reports: Eczema - Infectious Disease History Infectious Disease History: Reports: Chicken Pox Social & Family History - Family History Family Medical History: Noncontributory - Caffeine Use Caffeine Use: Reports: None - Recreational Drug Use Recreational Drug Use: Yes Drug Use in Last 12 Months: Yes Recreational Drug Type: Reports: Marijuana/Hashish, Methamphetamine (states that she hasn't used methamphetamine for 1 month now.) - Living Situation & Occupation Living situation: Reports: Single Occupation: Unemployed ED ROS GENERAL - Review of Systems Review Of Systems: Comprehensive ROS is negative, except as noted in HPI. ED EXAM, GI/ABD - Physical Exam Exam: See Below Exam Limited By: No Limitations General Appearance: Alert, WD/WN, No Apparent Distress, Anxious (pt is very dramatic, complaining about her right side hurting. states that she is worried about her baby, as she hasn't felt movement in 2 days.) Eyes: Bilateral: Normal Appearance Ears: Normal External Exam Nose: Normal Inspection Head: Atraumatic Neck: Normal Inspection Respiratory/Chest: No Respiratory Distress, Lungs Clear, Normal Breath Sounds, No Accessory Muscle Use, Chest Non-Tender Cardiovascular: Normal Peripheral Pulses, Regular Rate, Rhythm, No Murmur GI/Abdominal Exam: Soft, No Distention, Tender (generalized), Abnormal Bowel Sounds (hypoactive bowel tones) Extremities: Normal Inspection, Normal Capillary Refill Neurological: Alert, Oriented, Normal Cognition, No Motor/Sensory Deficits Psychiatric: Anxious (pt is very dramatic in presentation) Skin Exam: Warm, Dry, Intact, Normal Color, No Rash Course - Vital Signs Last Recorded V/S: Last Vital Signs Temp 97.0 F 01/30/20 18:29 Pulse 85 01/30/20 18:29 Resp 20 01/30/20 18:29 BP 132/96 H 01/30/20 18:29 Pulse Ox 100 01/30/20 18:29 - Orders/Labs/Meds Orders: Active Orders 24 hr Category Date Time Status Peripheral IV Care [RC] . DIRECTED Care 01/30/20 18:58 Active UA W/MICROSCOPIC [URIN] Stat Lab 01/30/20 18:54 Results Sodium Chloride 0.9% [Saline Flush] Med 05/26/20 18:54 Active 10 ml FLUSH ASDIRECTED PRN Peripheral IV Insertion Adult [OM.PC] Stat Oth 01/30/20 18:54 Ordered Medication Orders Sodium Chloride (Saline Flush) 10 ml FLUSH ASDIRECTED PRN PRN Reason: Keep Vein Open Last Admin: 01/30/20 19:23 Dose: 10 ml Labs: Laboratory Tests 01/30/20 01/30/20 01/30/20 Range/Units 18:54 19:15 19:15 WBC 15.98 H (3.98-10.04) K/mm3 RBC 4.61 (3.98-5.22) M/mm3 Hgb 13.8 D (11.2-15.7) gm/dl Hct 41.1 (34.1-44.9) % MCV 89.2 (79.4-94.8) fl MCH 29.9 (25.6-32.2) pg MCHC 33.6 (32.2-35.5) g/dl RDW Std Deviation 45.0 (36.4-46.3) fL Plt Count 414 H D (182-369) K/mm3 MPV 9.0 L (9.4-12.3) fl Neutrophils % (Manual) 75 H (40-60) % Band Neutrophils % 1 (0-10) % Lymphocytes % (Manual) 15 L (20-40) % Atypical Lymphs % 0 % Monocytes % (Manual) 9 (2-10) % Eosinophils % (Manual) 0 L (0.7-5.8) % Basophils % (Manual) 0 L (0.1-1.2) Toxic Granulation 2+ moderate Platelet Estimate Adequate Plt Morphology Comment Normal RBC Morph Comment Normal Sodium 136 (136-145) mEq/L Potassium 3.1 L (3.5-5.1) mEq/L Chloride 100 (98-107) mEq/L Carbon Dioxide 23 (21-32) mEq/L Anion Gap 16.1 H (5-15) BUN 11 (7-18) mg/dL Creatinine 0.7 (0.55-1.02) mg/dL Est Cr Clr Drug Dosing 91.32 mL/min Estimated GFR (MDRD) > 60 (>60) mL/min BUN/Creatinine Ratio 15.7 (14-18) Glucose 103 (74-106) mg/dL Calcium 9.1 (8.5-10.1) mg/dL Total Bilirubin 0.3 (0.2-1.0) mg/dL AST 19 (15-37) U/L ALT 20 (14-59) U/L Alkaline Phosphatase 89 (46-116) U/L C-Reactive Protein (<1.0) mg/dL Total Protein 8.5 H (6.4-8.2) g/dl Albumin 3.9 (3.4-5.0) g/dl Globulin 4.6 gm/dL Albumin/Globulin Ratio 0.9 L (1-2) Urine Color Yellow (Yellow) Urine Appearance Clear (Clear) Urine pH 6.5 (5.0-8.0) Ur Specific Reeder 1.025 (1.005-1.030) Urine Protein 1+ H (Negative) Urine Glucose (UA) Negative (Negative) Urine Ketones 4+ H (Negative) Urine Occult Blood Negative (Negative) Urine Nitrite Negative (Negative) Urine Bilirubin Negative (Negative) Urine Urobilinogen 0.2 (0.2-1.0) Ur Leukocyte Esterase 1+ H (Negative) Urine Opiates Screen (KSLWBI=527) Ur Buprenorphine Scrn (CUTOFF=10) Ur Oxycodone Screen (ATM3VF=068) Urine Methadone Screen (IDQCQM=311) Ur Propoxyphene Screen (ACFQIX=305) Ur Barbiturates Screen (BNRINP=530) Ur Tricyclics Screen (DQIBQP=039) Ur Phencyclidine Scrn (CUTOFF=25) Ur Amphetamine Screen (ZTCTNS=306) U Methamphetamines Scrn (PCTEUW=261) U Benzodiazepines Scrn (LLJIZT=360) U Cocaine Metab Screen (BICDHD=843) U Marijuana (THC) Screen (CUTOFF=50) 01/30/20 01/30/20 Range/Units 19:15 20:30 WBC (3.98-10.04) K/mm3 RBC (3.98-5.22) M/mm3 Hgb (11.2-15.7) gm/dl Hct (34.1-44.9) % MCV (79.4-94.8) fl MCH (25.6-32.2) pg MCHC (32.2-35.5) g/dl RDW Std Deviation (36.4-46.3) fL Plt Count (182-369) K/mm3 MPV (9.4-12.3) fl Neutrophils % (Manual) (40-60) % Band Neutrophils % (0-10) % Lymphocytes % (Manual) (20-40) % Atypical Lymphs % % Monocytes % (Manual) (2-10) % Eosinophils % (Manual) (0.7-5.8) % Basophils % (Manual) (0.1-1.2) Toxic Granulation Platelet Estimate Plt Morphology Comment RBC Morph Comment Sodium (136-145) mEq/L Potassium (3.5-5.1) mEq/L Chloride (98-107) mEq/L Carbon Dioxide (21-32) mEq/L Anion Gap (5-15) BUN (7-18) mg/dL Creatinine (0.55-1.02) mg/dL Est Cr Clr Drug Dosing mL/min Estimated GFR (MDRD) (>60) mL/min BUN/Creatinine Ratio (14-18) Glucose (74-106) mg/dL Calcium (8.5-10.1) mg/dL Total Bilirubin (0.2-1.0) mg/dL AST (15-37) U/L ALT (14-59) U/L Alkaline Phosphatase (46-116) U/L C-Reactive Protein 0.5 (<1.0) mg/dL Total Protein (6.4-8.2) g/dl Albumin (3.4-5.0) g/dl Globulin gm/dL Albumin/Globulin Ratio (1-2) Urine Color (Yellow) Urine Appearance (Clear) Urine pH (5.0-8.0) Ur Specific Reeder (1.005-1.030) Urine Protein (Negative) Urine Glucose (UA) (Negative) Urine Ketones (Negative) Urine Occult Blood (Negative) Urine Nitrite (Negative) Urine Bilirubin (Negative) Urine Urobilinogen (0.2-1.0) Ur Leukocyte Esterase (Negative) Urine Opiates Screen Negative (HDHWOM=478) Ur Buprenorphine Scrn Negative (CUTOFF=10) Ur Oxycodone Screen Negative (MDW1RX=406) Urine Methadone Screen Negative (UBSUZT=338) Ur Propoxyphene Screen Negative (SAPPLQ=937) Ur Barbiturates Screen Negative (HVMAVW=658) Ur Tricyclics Screen Negative (VQUMWY=820) Ur Phencyclidine Scrn Negative (CUTOFF=25) Ur Amphetamine Screen Presumptive positive H (IXQSPZ=865) U Methamphetamines Scrn Presumptive positive H (MAFFGT=975) U Benzodiazepines Scrn Negative (RAKIDY=168) U Cocaine Metab Screen Negative (XPEDCQ=574) U Marijuana (THC) Screen Presumptive positive H (CUTOFF=50) Meds: Medications Generic Name Dose Route Start Last Admin Trade Name Freq PRN Reason Stop Dose Admin Sodium Chloride 10 ml 01/30/20 18:54 01/30/20 19:23 Saline Flush FLUSH 10 ml ASDIRECTED PRN Administration Keep Vein Open Discontinued Medications Generic Name Dose Route Start Last Admin Trade Name Freq PRN Reason Stop Dose Admin Sodium Chloride 1,000 mls @ 999 mls/hr 01/30/20 18:58 01/30/20 19:22 Normal Saline IV 01/30/20 19:58 999 mls/hr ONETIME ONE Administration Ondansetron HCl 4 mg 01/30/20 18:38 01/30/20 18:44 Zofran IM 01/30/20 18:39 4 mg ONETIME ONE Administration Potassium Chloride 40 meq 01/30/20 19:48 Klor-Con M20 PO 01/30/20 19:49 ONETIME ONE - Re-Assessments/Exams Free Text/Narrative Re-Assessment/Exam: 01/30/20 18:47 Patient presents to the ED for evaluation of her abdominal pain, she is very dramatic in appearance, and complaining about her right-sided pain and worried about her baby as she has not felt movement in 2 days. I have ordered 4 mg IM Zofran for nausea management and will transfer her to CLERGY MEMBER at this time for evaluation of the fetus as she is over 20 weeks , and if the baby appears to be within normal limits, we will try to figure out the etiology of her abdomen pain when she gets back. 01/30/20 18:52 Apparently CLERGY MEMBER came over and took her up to the monitor and found a heart rate of 153 bpm, and the CLERGY MEMBER charge nurse states that they had 3 OB checks just come in and would rather not see her in the department. After this news I will order some baseline labs, and get in contact with her CLERGY MEMBER. 01/30/20 18:59 Cheyenne RN from [facility] did call and inquire about the patient, she is going to try and contact Dr. Gonzales regarding her OB status and/or due dates and see if she would like to check the patient in OB at this time. I was under the impression that if the patient was over 20 weeks and having abdominal pain, that they needed to be cleared by CLERGY MEMBER first. Will await word from Dr. Gonzales and ANGELA Quinn from CLERGY [facility]. 01/30/20 19:25 Dr. Gonzales did call back to the ER, and feels the patient would be appropriate to be evaluated in the ER, she requested a least a urine drug screen be done, and have her keep her appointment with Dr. Gonzales for the next visit. 01/30/20 20:31 Patient was reassessed at bedside, and states she is feeling better, she is providing us urine for examination at this time, will discharge her home once the urine results are done, and give her a prescription for Zofran. 01/30/20 21:04 Patient's urine is presumptive positive for methamphetamines and amphetamines, and marijuana, no obvious sign of infection. Departure - Departure Time of Disposition: 20:58 Disposition: Home, Self-Care 01 Condition: Good Clinical Impression: Abdominal pain complicating Nausea & vomiting Qualifiers: Vomiting type: unspecified Vomiting Intractability: non-intractable Qualified Code(s): R11.2 - Nausea with vomiting, unspecified - Discharge Information *PRESCRIPTION DRUG MONITORING PROGRAM REVIEWED*: No *COPY OF PRESCRIPTION DRUG MONITORING REPORT IN PATIENT [place]: No Prescriptions: Ondansetron [Zofran ODT] 4 mg PO Q6H PRN #10 tab.dis PRN Reason: Nausea/Vomiting Instructions: Abdominal Pain During , [id number], Nausea and Vomiting, Adult, [id number] Referrals: Dennise Gonzales MD [Primary Care Provider] - Forms: ED Department Discharge Additional Instructions: You have been evaluated in the ED for nausea/vomiting. You have received IV fluid in the ED to help with the dehydration from the vomiting. Over the next 24-48 hours please try to limit diet to clear liquids and advance as tolerate to a bland diet to alleviate symptoms of nausea/vomiting. Please use the Zofran every 6 hours as needed for nausea. This was electronically prescribed to the [facility] located in the [facility] per your choice. Please keep your next appointment with Dr. Gonzales. Please return to the ED if your symptoms should change or worsen. Sepsis Event Note - Evaluation Sepsis Screening Result: No Definite Risk - Focused Exam Vital Signs: Vital Signs Temp Pulse Resp BP Pulse Ox 01/30/20 18:29 97.0 F 85 20 132/96 H 100 Date Exam was Performed: 01/30/20 Time Exam was Performed: 21:04 - My Orders Last 24 Hours: My Active Orders 01/30/20 18:54 UA W/MICROSCOPIC [URIN] Stat Sodium Chloride 0.9% [Saline Flush] 10 ml FLUSH ASDIRECTED PRN Peripheral IV Insertion Adult [OM.PC] Stat 01/30/20 18:58 Peripheral IV Care [RC] . DIRECTED - Assessment/Plan Last 24 Hours: My Active Orders 01/30/20 18:54 UA W/MICROSCOPIC [URIN] Stat Sodium Chloride 0.9% [Saline Flush] 10 ml FLUSH ASDIRECTED PRN Peripheral IV Insertion Adult [OM.PC] Stat 01/30/20 18:58 Peripheral IV Care [RC] . DIRECTED
[2020-01-30] MEDS ORDERED: Sodium Chloride 0.9% 10 ML Syringe FLUSH PRN (18:54)
[2020-01-30] MEDS ORDERED: Sodium Chloride 0.9% 1,000 ML IV ONE (18:58)
[2020-01-30] MEDS ORDERED: Potassium Chloride 20 MEQ Tab.ER PO ONE (19:48)
== END 2020-01-30 21:10 | disposition home or self-care (01) ==
LOC: JD.ED 18:21 → JD.OBCHECK 18:21 → EDSTATUS 18:44 → JD.ED 21:10
DX: O99.89 Other specified diseases and conditions complicating pregnancy, childbirth and the puerperium (principal); O21.2 Late vomiting of pregnancy; R10.11 Right upper quadrant pain; Z3A.23 23 weeks gestation of pregnancy; Z91.018 Allergy to other foods; Z91.030 Bee allergy status; Z88.8 Allergy status to other drugs, medicaments and biological substances; Z79.899 Other long term (current) drug therapy
CPT/HCPCS: 36415; 80053; 80306; 81001; 85007; 85027; 86140; 96361; 96374; 99284; A9270; J2405; J7030

== ENCOUNTER 2020-02-24 10:35 | Emergency (ER) | payer MEDICAID ==
[2020-02-24 11:04] VITALS: BP 123/81; PULSE 57
--- NOTE | 2020-02-24 11:19 | EDM.PDOC ---
ED HPI GENERAL MEDICAL PROBLEM - General Chief Complaint: Gastrointestinal Problem Stated Complaint: VOMITING Time Seen by Provider: 02/24/20 11:14 Source of Information: Reports: Patient, Old Records History Limitations: Reports: No Limitations - History of Present Illness INITIAL COMMENTS - FREE TEXT/NARRATIVE: Linh is a 19 year old female presents today with nausea and vomiting. Patient is a . Blood type B neg. Gestational age 25 wks 3 days. Ob provider is Dr. Brambila. Reports she has been vomiting since 0500. Vomiting about every 30 minutes. States she appreciated blood in her emesis, less than 1 tsp. States she has belly pain "all over" She did not take any medications for nausea and vomiting today despite having them at home. She states they do not work. Last void was prior to arrival in the ER. Has not had anything to eat or drink today. No cramping, vaginal bleeding or spotting. She states she has not appreciated movement recently. Review of her records show she has been to the ER multiple occasions for the same problem. Admitted to using methamphetamine and marijuana in the the past. Admits to using marijuana yesterday. Denies any recent methamphetamine abuse. - Related Data Allergies Allergy/AdvReac Type Severity Reaction Status Date / Time coconut Allergy Intermediate Anaphylactic Verified 02/24/20 11:04 Shock bee venom protein (honey bee) Allergy Anaphylactic Verified 02/24/20 11:04 Shock ibuprofen AdvReac Vomiting Verified 02/24/20 11:04 Home Meds: Home Meds Nitrofurantoin Monohyd/M-Cryst [Macrobid 100 mg Capsule] 100 mg PO BID #10 capsule 12/13/19 [Rx] Ondansetron [Zofran ODT] 4 mg PO Q6H PRN #10 tab.dis 01/30/20 [Rx] Past Medical History HEENT History: Reports: Impaired Vision Cardiovascular History: Reports: Heart Murmur Respiratory History: Reports: Asthma Genitourinary History: Reports: Pyelonephritis 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: , 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 , Other (See Below) Musculoskeletal History: Reports: Back Pain, Chronic Neurological History: Reports: Migraines Psychiatric History: Reports: Addiction, Anxiety, Depression Hematologic History: Reports: Anemia Dermatologic History: Reports: Eczema - Infectious Disease History Infectious Disease History: Reports: Chicken Pox Social & Family History - Family History Family Medical History: Noncontributory - Tobacco Use Smoking Status *Q: Current Every Day Smoker Years of Tobacco use: 5 Packs/Tins Daily: 0.5 - Caffeine Use Caffeine Use: Reports: None - Recreational Drug Use Recreational Drug Use: No - Living Situation & Occupation Living situation: Reports: Single Occupation: Unemployed ED ROS GENERAL - Review of Systems Review Of Systems: See Below GI/Abdominal: Reports: Abdominal Pain, Hematemesis, Nausea, Vomiting : Denies: Pain ED EXAM - Physical Exam Exam: See Below Exam Limited By: No Limitations General Appearance: Alert, WD/WN, Mild Distress Nose: Normal Inspection Throat/Mouth: Normal Inspection, Normal Lips, Normal Voice, No Airway Compromise Respiratory/Chest: No Respiratory Distress, Lungs Clear, Normal Breath Sounds Cardiovascular: Normal Peripheral Pulses, Regular Rate, Rhythm, No Murmur GI/Abdominal Exam: Normal Bowel Sounds, Soft, Non-Tender, Other (gravid uterus) Heart Tones: Present Heart Tones per Min: 135 Movement: Active Neurological: Alert, Oriented, Normal Cognition Psychiatric: Normal Affect, Normal Mood Skin Exam: Warm, Diaphoretic, Pallor Course - Vital Signs Last Recorded V/S: Last Vital Signs Temp 96.9 F 02/24/20 11:01 Pulse 57 L 02/24/20 11:01 Resp 16 02/24/20 11:01 BP 123/81 02/24/20 11:01 Pulse Ox 100 02/24/20 11:01 - Orders/Labs/Meds Orders: Active Orders 24 hr Category Date Time Status Non Stress Test [RC] PER UNIT ROUTINE Care 02/24/20 11:33 Active Peripheral IV Care [RC] . DIRECTED Care 02/24/20 11:20 Active Sodium Chloride 0.9% [Saline Flush] Med 02/24/20 11:20 Active 10 ml FLUSH ASDIRECTED PRN Peripheral IV Insertion Adult [OM.PC] Routine Oth 02/24/20 11:20 Ordered Medication Orders Sodium Chloride (Saline Flush) 10 ml FLUSH ASDIRECTED PRN PRN Reason: Keep Vein Open Last Admin: 02/24/20 12:04 Dose: 10 ml Documented by: MICHAEL Labs: Laboratory Tests 02/24/20 02/24/20 02/24/20 Range/Units 11:50 11:50 12:50 WBC 21.72 H (3.98-10.04) K/mm3 RBC 4.11 (3.98-5.22) M/mm3 Hgb 12.5 (11.2-15.7) gm/dl Hct 37.2 (34.1-44.9) % MCV 90.5 (79.4-94.8) fl MCH 30.4 (25.6-32.2) pg MCHC 33.6 (32.2-35.5) g/dl RDW Std Deviation 44.9 (36.4-46.3) fL Plt Count 373 H (182-369) K/mm3 MPV 9.2 L (9.4-12.3) fl Neut % (Auto) 88.6 H (34.0-71.1) % Lymph % (Auto) 7.9 L (19.3-51.7) % [place] % (Auto) 2.9 L (4.7-12.5) % Eos % (Auto) 0 L (0.7-5.8) Baso % (Auto) 0.1 (0.1-1.2) % Neut # (Auto) 19.24 H (1.56-6.13) K/mm3 Lymph # (Auto) 1.72 (1.18-3.74) K/mm3 [place] # (Auto) 0.62 H (0.24-0.36) K/mm3 Eos # (Auto) 0.00 L (0.04-0.36) K/mm3 Baso # (Auto) 0.03 (0.01-0.08) K/mm3 Manual Slide Review Abnormal smear Sodium 135 L (136-145) mEq/L Potassium 3.5 (3.5-5.1) mEq/L Chloride 102 (98-107) mEq/L Carbon Dioxide 17 L (21-32) mEq/L Anion Gap 19.5 H (5-15) BUN 5 L (7-18) mg/dL Creatinine 0.6 (0.55-1.02) mg/dL Est Cr Clr Drug Dosing TNP Estimated GFR (MDRD) > 60 (>60) mL/min BUN/Creatinine Ratio 8.3 L (14-18) Glucose 136 H (74-106) mg/dL Calcium 9.0 (8.5-10.1) mg/dL Total Bilirubin 0.2 (0.2-1.0) mg/dL AST 12 L (15-37) U/L ALT 14 (14-59) U/L Alkaline Phosphatase 95 (46-116) U/L Total Protein 7.6 (6.4-8.2) g/dl Albumin 3.4 (3.4-5.0) g/dl Globulin 4.2 gm/dL Albumin/Globulin Ratio 0.8 L (1-2) Urine Color Yellow (Yellow) Urine Appearance Clear (Clear) Urine pH 8.5 H (5.0-8.0) Ur Specific [place] 1.025 (1.005-1.030) Urine Protein Trace H (Negative) Urine Glucose (UA) Trace H (Negative) Urine Ketones 2+ H (Negative) Urine Occult Blood Negative (Negative) Urine Nitrite Negative (Negative) Urine Bilirubin Negative (Negative) Urine Urobilinogen 0.2 (0.2-1.0) Ur Leukocyte Esterase 1+ H (Negative) Urine RBC 0-5 (0-5) /hpf Urine WBC 10-20 H (0-5) /hpf Ur Squamous Epith Cells 0-5 (0-5) /hpf Amorphous Sediment Moderate H (NOT SEEN) /hpf Urine Bacteria Moderate H (FEW) /hpf Urine Mucus Rare (FEW) /hpf Urine Opiates Screen (HEIBRW=169) Ur Buprenorphine Scrn (CUTOFF=10) Ur Oxycodone Screen (VBN9NW=764) Urine Methadone Screen (PZKQSB=544) Ur Propoxyphene Screen (CRTEQR=545) Ur Barbiturates Screen (WODOBJ=303) Ur Tricyclics Screen (EJLXNC=523) Ur Phencyclidine Scrn (CUTOFF=25) Ur Amphetamine Screen (SVWOBA=036) U Methamphetamines Scrn (OYKSXN=875) U Benzodiazepines Scrn (WARSML=506) U Cocaine Metab Screen (KWVQRG=744) U Marijuana (THC) Screen (CUTOFF=50) 02/24/20 Range/Units 12:50 WBC (3.98-10.04) K/mm3 RBC (3.98-5.22) M/mm3 Hgb (11.2-15.7) gm/dl Hct (34.1-44.9) % MCV (79.4-94.8) fl MCH (25.6-32.2) pg MCHC (32.2-35.5) g/dl RDW Std Deviation (36.4-46.3) fL Plt Count (182-369) K/mm3 MPV (9.4-12.3) fl Neut % (Auto) (34.0-71.1) % Lymph % (Auto) (19.3-51.7) % [place] % (Auto) (4.7-12.5) % Eos % (Auto) (0.7-5.8) Baso % (Auto) (0.1-1.2) % Neut # (Auto) (1.56-6.13) K/mm3 Lymph # (Auto) (1.18-3.74) K/mm3 [place] # (Auto) (0.24-0.36) K/mm3 Eos # (Auto) (0.04-0.36) K/mm3 Baso # (Auto) (0.01-0.08) K/mm3 Manual Slide Review Sodium (136-145) mEq/L Potassium (3.5-5.1) mEq/L Chloride (98-107) mEq/L Carbon Dioxide (21-32) mEq/L Anion Gap (5-15) BUN (7-18) mg/dL Creatinine (0.55-1.02) mg/dL Est Cr Clr Drug Dosing Estimated GFR (MDRD) (>60) mL/min BUN/Creatinine Ratio (14-18) Glucose (74-106) mg/dL Calcium (8.5-10.1) mg/dL Total Bilirubin (0.2-1.0) mg/dL AST (15-37) U/L ALT (14-59) U/L Alkaline Phosphatase (46-116) U/L Total Protein (6.4-8.2) g/dl Albumin (3.4-5.0) g/dl Globulin gm/dL Albumin/Globulin Ratio (1-2) Urine Color (Yellow) Urine Appearance (Clear) Urine pH (5.0-8.0) Ur Specific [place] (1.005-1.030) Urine Protein (Negative) Urine Glucose (UA) (Negative) Urine Ketones (Negative) Urine Occult Blood (Negative) Urine Nitrite (Negative) Urine Bilirubin (Negative) Urine Urobilinogen (0.2-1.0) Ur Leukocyte Esterase (Negative) Urine RBC (0-5) /hpf Urine WBC (0-5) /hpf Ur Squamous Epith Cells (0-5) /hpf Amorphous Sediment (NOT SEEN) /hpf Urine Bacteria (FEW) /hpf Urine Mucus (FEW) /hpf Urine Opiates Screen Negative (AQKXZG=549) Ur Buprenorphine Scrn Negative (CUTOFF=10) Ur Oxycodone Screen Negative (OGN9FY=464) Urine Methadone Screen Negative (NKGWRU=600) Ur Propoxyphene Screen Negative (LHUDDL=700) Ur Barbiturates Screen Negative (COYEYD=607) Ur Tricyclics Screen Negative (LZDWQJ=624) Ur Phencyclidine Scrn Negative (CUTOFF=25) Ur Amphetamine Screen Negative (NNYPLA=140) U Methamphetamines Scrn Negative (QDAMIX=079) U Benzodiazepines Scrn Negative (SKAYIX=402) U Cocaine Metab Screen Negative (KWTTZW=124) U Marijuana (THC) Screen Presumptive positive H (CUTOFF=50) Meds: Medications Generic Name Dose Route Start Last Admin Trade Name Freq PRN Reason Stop Dose Admin Sodium Chloride 10 ml 02/24/20 11:20 02/24/20 12:04 Saline Flush FLUSH 10 ml ASDIRECTED PRN Administration Keep Vein Open Discontinued Medications Generic Name Dose Route Start Last Admin Trade Name Freq PRN Reason Stop Dose Admin Sodium Chloride 1,000 mls @ 999 mls/hr 02/24/20 11:20 02/24/20 12:03 Normal Saline IV 02/24/20 12:20 999 mls/hr ONETIME ONE Administration Sodium Chloride 1,000 mls @ 999 mls/hr 02/24/20 13:12 02/24/20 13:30 Normal Saline IV 02/24/20 14:12 999 mls/hr ONETIME ONE Administration Ondansetron HCl 4 mg 02/24/20 11:20 02/24/20 12:02 Zofran IVPUSH 02/24/20 11:21 4 mg ONETIME ONE Administration Ondansetron HCl 4 mg 02/24/20 13:12 02/24/20 13:30 Zofran IVPUSH 02/24/20 13:13 4 mg ONETIME ONE Administration Promethazine HCl 25 mg 02/24/20 14:16 02/24/20 14:42 Phenergan IM 02/24/20 14:17 25 mg ONETIME ONE Administration - Re-Assessments/Exams Free Text/Narrative Re-Assessment/Exam: 02/24/20 12:04 Ob RN Sarah came over and Doppled the patient. heart tones 130s-140s, movement appreciated. 02/24/20 12:32 Checked on the patient. She is sleeping. Mother present at bedside states the retching has improved. 02/24/20 15:21 Checked on the patient. She is doing well. Will discharge home at this time. Discharge instructions as documented. Departure - Departure Time of Disposition: 15:22 Disposition: Home, Self-Care 01 Condition: Fair Clinical Impression: Vomiting during - Discharge Information *PRESCRIPTION DRUG MONITORING PROGRAM REVIEWED*: No *COPY OF PRESCRIPTION DRUG MONITORING REPORT IN PATIENT [place]: No Instructions: Nausea and Vomiting, Adult, [id number] Referrals: PCP,None [Family Provider] - Dennise Gonzales MD [Primary Care Provider] - Forms: ED Department Discharge Additional Instructions: recommend clear fluids and a bland diet. Contact your Ob Wednesday morning for follow-up. Take your medications for nausea you have at home as prescribed. Please return to the ER should your symptoms change. Sepsis Event Note (ED) - Evaluation Sepsis Screening Result: No Definite Risk - Focused Exam Vital Signs: Vital Signs Temp Pulse Resp BP Pulse Ox 02/24/20 11:01 96.9 F 57 L 16 123/81 100 - My Orders Last 24 Hours: My Active Orders 02/24/20 11:20 Peripheral IV Care [RC] . DIRECTED Sodium Chloride 0.9% [Saline Flush] 10 ml FLUSH ASDIRECTED PRN Peripheral IV Insertion Adult [OM.PC] Routine 02/24/20 11:33 Non Stress Test [RC] PER UNIT ROUTINE - Assessment/Plan Last 24 Hours: My Active Orders 02/24/20 11:20 Peripheral IV Care [RC] . DIRECTED Sodium Chloride 0.9% [Saline Flush] 10 ml FLUSH ASDIRECTED PRN Peripheral IV Insertion Adult [OM.PC] Routine 02/24/20 11:33 Non Stress Test [RC] PER UNIT ROUTINE
[2020-02-24] MEDS ORDERED: Sodium Chloride 0.9% 10 ML Syringe FLUSH PRN (11:20)
[2020-02-24] MEDS ORDERED: Sodium Chloride 0.9% 1,000 ML IV ONE ×2 (11:20→13:12)
[2020-02-24] MEDS ORDERED: Ondansetron 4 MG/2 ML SDV IVPUSH ONE ×2 (11:20→13:12)
[2020-02-24] MEDS ORDERED: Promethazine 25 MG/ML SDV IM ONE (14:16)
== END 2020-02-24 15:40 | disposition home or self-care (01) ==
LOC: JD.ED 10:35
DX: O21.2 Late vomiting of pregnancy (principal); O99.332 Smoking (tobacco) complicating pregnancy, second trimester; F17.210 Nicotine dependence, cigarettes, uncomplicated; Z88.6 Allergy status to analgesic agent; Z91.018 Allergy to other foods; Z91.030 Bee allergy status; Z3A.25 25 weeks gestation of pregnancy
CPT/HCPCS: 36415; 80053; 80306; 81001; 85025; 96361; 96372; 96374; 96376; 99284; J2405; J2550; J7030; 99283

== ENCOUNTER 2020-05-11 07:42 | Inpatient (IN) | payer MEDICAID ==
[2020-05-11] MEDS ORDERED: Nalbuphine 10 MG/ML Syringe IVPUSH PRN (07:50)
[2020-05-11] MEDS ORDERED: Sodium Chloride 0.9% 10 ML Syringe FLUSH PRN (07:50)
[2020-05-11] MEDS ORDERED: Oxytocin/Lactated Ringers 20 UNIT/1,000 ML BAG ONE (07:54)
[2020-05-11] MEDS ORDERED: Oxytocin/Lactated Ringers 20 UNIT/1,000 ML BAG IV SCH (08:00)
[2020-05-11] MEDS: Lactated Ringers 1,000 ML IV SCH ×2 (08:20→09:57)
--- NOTE | 2020-05-11 08:23 | PCM.LDHP ---
L&D History of Present Illness - General Date of Service: 05/11/20 Admit Problem/Dx: Admission Diagnosis/Problem Admission Diagnosis/Problem Source of Information: Patient History Limitations: Reports: No Limitations - History of Present Illness Introduction:: 20-year-old [id number] with 10/24/2019 ultrasound KYUNG at 7 weeks 6 days of 06/05/2020. Estimated gestational age is 36 weeks and 3 days. Patient has history of being IV drug user, methamphetamine abuse, and also history of smoking marijuana. Patient presented to labor and delivery in active labor ruptured membranes unknown length of time patient cannot remember. Patient states she has been keeley all night. On presentation to labor and delivery examination at 0800 hrs. revealed cervix to be 8 cm dilated no membranes palpated 80 to 90% effaced anterior cephalic presentation at 0 to -1 station. Labs have been drawn urine collected and will attempt to obtain epidural if time. States she last used methamphetamine in January 2020. Denies relapse. Type B- antibody screen negative. Hemoglobin/hematocrit performed on 11/09/2019 12.3/36.8. Platelets were 329,000. Rubella screen immune on 11/09/2019. Serology nonreactive, hepatitis B surface antigen nonreactive, hepatitis C nonreactive, HIV see report. GBS +05/06/2020. GC and Chlamydia probe detected. 12/14/2019. Hour OB glucose screen 114 obtained on 05/06/2020. Plan delivery Improves with: Reports: None Worsens with: Reports: None Associated Symptoms: Reports: N - Related Data Allergies/Adverse Reactions: Allergies Allergy/AdvReac Type Severity Reaction Status Date / Time coconut Allergy Intermediate Anaphylactic Verified 02/24/20 11:04 Shock bee venom protein (honey bee) Allergy Anaphylactic Verified 02/24/20 11:04 Shock ibuprofen AdvReac Vomiting Verified 02/24/20 11:04 Home Medications: Home Meds Nitrofurantoin Monohyd/M-Cryst [Macrobid 100 mg Capsule] 100 mg PO BID #10 capsule 12/13/19 [Rx] Ondansetron [Zofran ODT] 4 mg PO Q6H PRN #10 tab.dis 01/30/20 [Rx] Past Medical History - Past Health History Medical/Surgical History: Denies Medical/Surgical History HEENT History: Reports: Impaired Vision Cardiovascular History: Reports: Heart Murmur Respiratory History: Reports: Asthma Genitourinary History: Reports: Pyelonephritis 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 Patient states she last used in January 2020. She states she has been in rehab. Social & Family History - Family History Family Medical History: Noncontributory - Caffeine Use Caffeine Use: Reports: None - Living Situation & Occupation Living situation: Reports: Single Occupation: Unemployed H&P Review of Systems - Review of Systems: Review Of Systems: See Below General: Reports: No Symptoms HEENT: Reports: No Symptoms Pulmonary: Reports: No Symptoms Cardiovascular: Reports: No Symptoms Gastrointestinal: Reports: No Symptoms Genitourinary: Reports: No Symptoms Musculoskeletal: Reports: No Symptoms Skin: Reports: No Symptoms Psychiatric: Reports: No Symptoms Neurological: Reports: No Symptoms Hematologic/Lymphatic: Reports: No Symptoms Immunologic: Reports: No Symptoms L&D Exam - Exam Exam: See Below - OB Specific Fundal Height In cm: 32 Contraction Duration (sec): 60 Contraction Frequency (min): 3 Contraction Intensity: Moderate to Strong Movement: Active Heart Tones: Present Heart Tones per Min: 145 Heart Rate (FHR) Variability: Moderate (6-25 bmp) Presentation: Vertex - Gomez Score Gomez Score Cervix Position: Anterior Gomez Score Consistency: Soft Gomez Score Effacement: >80% Gomez Score Dilation: > 5 cm Gomez Score Infant's Station: -1 ,0 Gomez Score Total: 12 - Exam General: Alert, Oriented HEENT: Conjunctiva Clear, Mucosa Moist & [place], Abnormal Pupils (bilateral dilatation about 5 mm) Neck: Supple, Trachea Midline Lungs: Clear to Auscultation, Normal Respiratory Effort Cardiovascular: Regular Rate, Regular Rhythm GI/Abdominal Exam: Normal Bowel Sounds, Soft, Non-Tender (between contractions) Genitourinary: Normal external exam Extremities: Normal Inspection, Non-Tender, No Pedal Edema, Normal Capillary Refill Skin: Warm, Dry, Intact Psychiatric: Alert, Anxious - Problem List (1) 36 weeks gestation of SNOMED Code(s): 53178128 ICD Code: Z3A.36 - 36 WEEKS GESTATION OF Status: Acute Current Visit: Yes (2) GBS carrier SNOMED Code(s): 8647764706198 ICD Code: Z22.330 - CARRIER OF GROUP B STREPTOCOCCUS Status: Acute Current Visit: Yes (3) History of mixed drug abuse SNOMED Code(s): 205587569 ICD Code: F19.11 - OTHER PSYCHOACTIVE SUBSTANCE ABUSE, IN REMISSION Status: Acute Current Visit: Yes Problem List Initiated/Reviewed/Updated: No Orders Last 24hrs: Active Orders 24 hr Category Date Time Status Activity as Tolerated [RC] PFP Care 05/11/20 07:50 Active Communication Order [RC] ASDIRECTED Care 05/11/20 07:50 Active Heart Tones [RC] ASDIRECTED Care 05/11/20 07:50 Active Non Stress Test [RC] PER UNIT ROUTINE Care 05/11/20 07:50 Active Notify Provider [RC] PFP Care 05/11/20 07:50 Active Notify Provider [RC] PRN Care 05/11/20 07:50 Active Peripheral IV Care [RC] . DIRECTED Care 05/11/20 07:50 Active Vital Signs [RC] PER UNIT ROUTINE Care 05/11/20 07:50 Active Regular Diet [DIET] Diet 05/11/20 Lunch Active CBC WITH AUTO DIFF [HEME] Stat Lab 05/11/20 08:07 Ordered RAPID PLASMA REAGIN,RPR [CHEM] Stat Lab 05/11/20 08:07 Ordered TYPE AND SCREEN [BBK] Stat Lab 05/11/20 08:08 Ordered Lactated Ringers [Ringers, Lactated] 1,000 ml Med 05/11/20 08:00 Active IV ASDIRECTED Nalbuphine [Nubain] Med 05/11/20 07:50 Active 10 mg IVPUSH Q2H PRN Oxytocin/Lactated Ringers [Pitocin in LR 20 Units/1,000 Med 05/11/20 08:00 Active ML] 20 unit in 1,000 ml IV .CONTINUOUS Sodium Chloride 0.9% [Saline Flush] Med 05/11/20 07:50 Active 10 ml FLUSH ASDIRECTED PRN Electronic Heart Tones Ext w TOCO [WOMSER] Oth 09/05/20 07:50 Ordered Routine Electronic Heart Tones Internal [WOMSER] Per Unit Oth 05/11/20 07:50 Ord ered Routine Peripheral IV Insertion Adult [OM.PC] Routine Oth 05/11/20 07:50 Ordered Resuscitation Status Routine Resus Stat 05/11/20 07:50 Ordered Medication Orders Oxytocin/Lactated Ringer's (Pitocin In Lr 20 Units/1,000 Ml) 20 unit in 1,000 mls @ 100 mls/hr IV .CONTINUOUS NELIA Lactated Ringer's (Ringers, Lactated) 1,000 mls @ 100 mls/hr IV ASDIRECTED NELIA Nalbuphine HCl (Nubain) 10 mg IVPUSH Q2H PRN PRN Reason: Pain Sodium Chloride (Saline Flush) 10 ml FLUSH ASDIRECTED PRN PRN Reason: Keep Vein Open Assessment/Plan Comment:: UA, UDS, CBC, RPR, type and screen ordered. Plan delivery.
[2020-05-11] MEDS ORDERED: ceFAZolin 2 GM in Premix Bag 1 BAG IV ONE (09:18)
[2020-05-11] MEDS ORDERED: fentaNYL 100 MCG/2 ML SDV EPIDUR PRN (09:26)
[2020-05-11] MEDS ORDERED: Bupivacaine/fentaNYL/NS 100 ML Bag EPIDUR PRN (09:26)
[2020-05-11] MEDS ORDERED: diphenhydrAMINE 50 MG/ML SDV IVPUSH PRN (09:26)
[2020-05-11] MEDS ORDERED: ePHEDrine 50 MG/ML SDV IVPUSH PRN (09:26)
[2020-05-11] MEDS ORDERED: Bupivacaine 0.25% 10 ML SDV ONE (10:00)
--- NOTE | 2020-05-11 10:18 | PCM.PREANE ---
Preanesthetic Assessment - Procedure Proposed Procedure: epidural - Anesthesia/Transfusion/Family Hx Anesthesia History: No Prior Anesthesia Family History of Anesthesia Reaction: No Transfusion History: No Prior Transfusion(s) - Review of Systems General: Fatigue, Malaise Pulmonary: No Symptoms Cardiovascular: No Symptoms Gastrointestinal: Abdominal Pain (labor) Neurological: No Symptoms Other: Reports: Anxiety - Physical Assessment Vital Signs: Last Vital Signs Temp 35.9 C L 05/11/20 07:50 Pulse 64 05/11/20 07:50 Resp 20 05/11/20 07:50 BP 149/92 H 05/11/20 07:50 Pulse Ox 100 05/11/20 07:50 Height: 1.52 m Weight: 53.524 kg ASA Class: 2 Mental Status: Alert & Oriented x3 Airway Class: Mallampati = 1 Dentition: Reports: Normal Dentition Thyro-Mental Finger Breadths: 3 Mouth Opening Finger Breadths: 3 ROM/Head Extension: Full Lungs: Clear to Auscultation, Normal Respiratory Effort Cardiovascular: Regular Rate, Regular Rhythm - Lab Values: Laboratory Last Values WBC 17.03 K/mm3 (3.98-10.04) H 05/11/20 08:11 RBC 3.61 M/mm3 (3.98-5.22) L 05/11/20 08:11 Hgb 9.7 gm/dl (11.2-15.7) L D 05/11/20 08:11 Hct 31.4 % (34.1-44.9) L 05/11/20 08:11 MCV 87.0 fl (79.4-94.8) D 05/11/20 08:11 MCH 26.9 pg (25.6-32.2) 05/11/20 08:11 MCHC 30.9 g/dl (32.2-35.5) L 05/11/20 08:11 RDW Std Deviation 44.5 fL (36.4-46.3) 05/11/20 08:11 Plt Count 457 K/mm3 (182-369) H D 05/11/20 08:11 MPV 9.5 fl (9.4-12.3) 05/11/20 08:11 Neut % (Auto) 63.7 % (34.0-71.1) 05/11/20 08:11 Lymph % (Auto) 18.3 % (19.3-51.7) L 05/11/20 08:11 [place] % (Auto) 15.0 % (4.7-12.5) H 05/11/20 08:11 Eos % (Auto) 0.4 (0.7-5.8) L 05/11/20 08:11 Baso % (Auto) 0.2 % (0.1-1.2) 05/11/20 08:11 Neut # (Auto) 10.84 K/mm3 (1.56-6.13) H 05/11/20 08:11 Lymph # (Auto) 3.12 K/mm3 (1.18-3.74) 05/11/20 08:11 [place] # (Auto) 2.56 K/mm3 (0.24-0.36) H 05/11/20 08:11 Eos # (Auto) 0.06 K/mm3 (0.04-0.36) 05/11/20 08:11 Baso # (Auto) 0.04 K/mm3 (0.01-0.08) 05/11/20 08:11 Manual Slide Review Abnormal smear 05/11/20 08:11 Urine Opiates Screen Negative (QCDQBP=621) 05/11/20 08:08 Ur Buprenorphine Scrn Negative (CUTOFF=10) 05/11/20 08:08 Ur Oxycodone Screen Negative (QTL4GO=335) 05/11/20 08:08 Urine Methadone Screen Negative (YVURCB=668) 05/11/20 08:08 Ur Propoxyphene Screen Negative (ZXMNNE=506) 05/11/20 08:08 Ur Barbiturates Screen Negative (PDGKLC=306) 05/11/20 08:08 Ur Tricyclics Screen Negative (LOESGJ=205) 05/11/20 08:08 Ur Phencyclidine Scrn Negative (CUTOFF=25) 05/11/20 08:08 Ur Amphetamine Screen Presumptive positive (MDTFNS=612) H 05/11/20 08:08 U Methamphetamines Scrn Presumptive positive (QHWFAS=276) H 05/11/20 08:08 U Benzodiazepines Scrn Negative (AEHWWH=136) 05/11/20 08:08 U Cocaine Metab Screen Negative (FDRWBI=707) 05/11/20 08:08 U Marijuana (THC) Screen Presumptive positive (CUTOFF=50) H 05/11/20 08:08 COVID-19 (LISBET) Positive (NEGATIVE) H 05/11/20 08:35 Blood Type B NEGATIVE 05/11/20 08:11 Gel Antibody Screen Positive 05/11/20 08:11 - Allergies Allergies/Adverse Reactions: Allergies Allergy/AdvReac Type Severity Reaction Status Date / Time coconut Allergy Intermediate Anaphylactic Verified 02/24/20 11:04 Shock bee venom protein (honey bee) Allergy Anaphylactic Verified 02/24/20 11:04 Shock ibuprofen AdvReac Vomiting Verified 02/24/20 11:04 - Anesthesia Plan Pre-Op Medication Ordered: None - Acknowledgements Anesthesia Type Planned: Epidural Pt an Appropriate Candidate for the Planned Anesthesia: Yes Alternatives and Risks of Anesthesia Discussed w Pt/Guardian: Yes Pt/Guardian Understands and Agrees with Anesthesia Plan: Yes PreAnesthesia Questionnaire - Past Health History Medical/Surgical History: Denies Medical/Surgical History HEENT History: Reports: Impaired Vision Cardiovascular History: Reports: Heart Murmur Respiratory History: Reports: Asthma Gastrointestinal History: Reports: GERD Genitourinary History: Reports: Pyelonephritis 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 Patient states she last used in January 2020. She states she has been in rehab. - SUBSTANCE USE Recreational Drug Use History: Yes Recreational Drug Type: Reports: Marijuana/Hashish, Methamphetamine - HOME MEDS Home Medications: Home Meds Acetaminophen [Tylenol] 975 mg PO Q4H PRN 05/11/20 [History] Pnv No.95/Ferrous Fum/Folic AC [ Vitamin Tablet] 1 each PO DAILY 05/11/20 [History] - CURRENT (IN HOUSE) MEDS Current Meds: Current Medications Diphenhydramine HCl (Benadryl) 25 mg IVPUSH Q6H PRN PRN Reason: pruritis Ephedrine Sulfate (Ephedrine Sulfate) 5 mg IVPUSH ASDIRECTED PRN PRN Reason: Hypotension Fentanyl (Sublimaze) 100 mcg EPIDUR Q3H PRN PRN Reason: Pain Last Admin: 05/11/20 09:52 Dose: 100 mcg Documented by: Fentanyl/Bupivacaine HCl (Fentanyl/Bupivacaine/Ns 2 Mcg-0.125% 100 Ml) 100 ml EPIDUR ASDIRECTED PRN PRN Reason: Pain Last Admin: 05/11/20 09:53 Dose: 100 ml Documented by: Oxytocin/Lactated Ringer's (Pitocin In Lr 20 Units/1,000 Ml) 20 unit in 1,000 mls @ 100 mls/hr IV .CONTINUOUS NELIA Lactated Ringer's (Ringers, Lactated) 1,000 mls @ 100 mls/hr IV ASDIRECTED NELIA Last Admin: 05/11/20 09:57 Dose: 500 mls/hr Documented by: Nalbuphine HCl (Nubain) 10 mg IVPUSH Q2H PRN PRN Reason: Pain Sodium Chloride (Saline Flush) 10 ml FLUSH ASDIRECTED PRN PRN Reason: Keep Vein Open Discontinued Medications Oxytocin/Lactated Ringer's (Pitocin In Lr 20 Units/1,000 Ml) Confirm Administered Dose 20 unit in 1,000 mls @ as directed .ROUTE .STK-MED ONE Stop: 05/11/20 07:55 Cefazolin Sodium/Dextrose 2 gm (/ Premix) 50 mls @ 100 mls/hr IV ONETIME ONE Stop: 05/11/20 09:47 Last Admin: 05/11/20 09:26 Dose: 100 mls/hr Documented by: Lidocaine HCl (Xylocaine 1%) Confirm Administered Dose 50 ml .ROUTE .STK-MED ONE Stop: 05/11/20 08:02
--- NOTE | 2020-05-11 10:22 | PCM.SN.2 ---
- Free Text/Narrative Note: Rapid COVID screen positive confirmatory test ordered. Urine positive for THC, methamphetamines and amphetamines.
--- NOTE | 2020-05-11 10:26 | PCM.SN.2 ---
- Free Text/Narrative Note: 1005 Cervix rim anterior, epidural in place, good relief.
--- NOTE | 2020-05-11 13:21 | PCM.DEL ---
L & D Note - General Info Date of Service: 05/11/20 Mother's Due Date: 06/05/20 - Delivery Note Labor: Spontaneous, Augmented by ARM (when complete) Cervical Ripening Method: Oxytocin Delivery Outcome: Livebirth (Female liveborn 05/11/2020 1252 hours with assistance of vacuum extraction for 45 seconds in the green nuchal cord x1 tight (because of terminal bradycardia requiring vacuum) DANIEL 03/14 weight 2140 g 4 pounds 11.5 ounces) Delivery Method: Spontaneous Vaginal Delivery-Single Infant Delivery Mode: Vacuum Extraction (45 seconds in green) Presentation: Right Occiput Anterior (DANIEL) Nuchal Cord: Present (x1 tight reduced over head) Prep: Povidone-Iodine (Betadine Anesthesia Type: Combined Spinal Epidural, Local (Local augmentation for anesthesia for episiotomy repair (midline no lacerations)) Anesthetic: Lidocaine (Xylocaine) 1% Plain Local Anesthetic Volume: 5cc Amniotic Fluid Description: Bloody (No bloody anesthesia consistent with her 5% marginal abruption) Episiotomy Type: Midline Laceration: None Suture type: Other (Monocryl x1) Suture size: 3-0 Placenta: Intact, Spontaneous (12 55 hours Wednesday05/11/2020 20% marginal abruption) Cord: 3 Vessels Estimated Blood Loss: 250 Resuscitation Needed: No [place]: Suctioned, Bulb Syringe, Stimulated, Warmed, [place] Used, Warmer Used Provider: Enrique Solorio Score 1 min: 7 Score 5 min: 9 Vacuum Extractor Progress Note - Alternative Labor Strategies Considered Alternative Labor Strategies Considered:: Reports: No (None available except section versus vacuum extraction) Indications Considered:: Reports: Yes Indications:: Reports: Suspicion of Immediate or Potential Compromise Time Out:: Reports: Yes - Patient Prepared Patient Prepared:: Reports: Yes Informed Consent:: Reports: Verbal Risks: Reports: Yes Risks Include:: Reports: Laceration, Shoulder Dystocia, Maternal Injury Anesthesia/Analgesia Adequate:: Reports: Yes - Probability of Success High Probability of Success:: Reports: Yes Weight Estimated:: Reports: SGA Patient Diabetic:: Reports: No Pelvis Adequate:: Reports: Yes Asynclitic:: Reports: No - Application Time Maximum Application Time & Number of Pop-Offs Predetermined:: Reports: Yes (3 (no pop offs occurred)) Maximum Pressure Maintained in Green Zone (cm Hg):: 20 Total Application Time (min): *max=20min: 45 (seconds) Number of Times Cup Disengaged:: 0 Type of Vacuum Used:: Reports: Cup: Mushroom type Vacuum Extraction: Successful - Exit Strategy Exit strategy available:: Reports: Yes and resuscitation teams readily available:: Reports: Yes Comments:: no problems with vacuum extraction - General Info Date of Service: 05/11/20 Functional Status: Reports: Pain Controlled - Review of Systems General: Reports: No Symptoms HEENT: Reports: No Symptoms Pulmonary: Reports: No Symptoms Cardiovascular: Reports: No Symptoms Gastrointestinal: Reports: No Symptoms Genitourinary: Reports: No Symptoms Musculoskeletal: Reports: No Symptoms Skin: Reports: No Symptoms Neurological: Reports: No Symptoms Psychiatric: Reports: No Symptoms - Patient Data Vitals - Most Recent: Last Vital Signs Temp 96.6 F L 05/11/20 07:50 Pulse 67 05/11/20 11:30 Resp 20 05/11/20 07:50 BP 147/85 H 05/11/20 09:30 Pulse Ox 100 05/11/20 10:30 Weight - Most Recent: 118 lb Lab Results Last 24 Hours: Laboratory Results - last 24 hr 05/11/20 05/11/20 05/11/20 Range/Units 08:08 08:11 08:11 WBC 17.03 H (3.98-10.04) K/mm3 RBC 3.61 L (3.98-5.22) M/mm3 Hgb 9.7 L D (11.2-15.7) gm/dl Hct 31.4 L (34.1-44.9) % MCV 87.0 D (79.4-94.8) fl MCH 26.9 (25.6-32.2) pg MCHC 30.9 L (32.2-35.5) g/dl RDW Std Deviation 44.5 (36.4-46.3) fL Plt Count 457 H D (182-369) K/mm3 MPV 9.5 (9.4-12.3) fl Neut % (Auto) 63.7 (34.0-71.1) % Lymph % (Auto) 18.3 L (19.3-51.7) % [place] % (Auto) 15.0 H (4.7-12.5) % Eos % (Auto) 0.4 L (0.7-5.8) Baso % (Auto) 0.2 (0.1-1.2) % Neut # (Auto) 10.84 H (1.56-6.13) K/mm3 Lymph # (Auto) 3.12 (1.18-3.74) K/mm3 [place] # (Auto) 2.56 H (0.24-0.36) K/mm3 Eos # (Auto) 0.06 (0.04-0.36) K/mm3 Baso # (Auto) 0.04 (0.01-0.08) K/mm3 Manual Slide Review Abnormal smear Urine Opiates Screen Negative (KUKXJL=319) Ur Buprenorphine Scrn Negative (CUTOFF=10) Ur Oxycodone Screen Negative (ROX5DQ=199) Urine Methadone Screen Negative (HYWRLA=679) Ur Propoxyphene Screen Negative (RTOLOF=255) Ur Barbiturates Screen Negative (LVWSDS=395) Ur Tricyclics Screen Negative (ZXTWTG=376) Ur Phencyclidine Scrn Negative (CUTOFF=25) Ur Amphetamine Screen Presumptive positive H (OJGABY=070) U Methamphetamines Scrn Presumptive positive H (XZDQJP=146) U Benzodiazepines Scrn Negative (XEPAQH=646) U Cocaine Metab Screen Negative (XJUIJZ=937) U Marijuana (THC) Screen Presumptive positive H (CUTOFF=50) COVID-19 (LISBET) (NEGATIVE) Blood Type B NEGATIVE Gel Antibody Screen Positive 05/11/20 Range/Units 08:35 WBC (3.98-10.04) K/mm3 RBC (3.98-5.22) M/mm3 Hgb (11.2-15.7) gm/dl Hct (34.1-44.9) % MCV (79.4-94.8) fl MCH (25.6-32.2) pg MCHC (32.2-35.5) g/dl RDW Std Deviation (36.4-46.3) fL Plt Count (182-369) K/mm3 MPV (9.4-12.3) fl Neut % (Auto) (34.0-71.1) % Lymph % (Auto) (19.3-51.7) % [place] % (Auto) (4.7-12.5) % Eos % (Auto) (0.7-5.8) Baso % (Auto) (0.1-1.2) % Neut # (Auto) (1.56-6.13) K/mm3 Lymph # (Auto) (1.18-3.74) K/mm3 [place] # (Auto) (0.24-0.36) K/mm3 Eos # (Auto) (0.04-0.36) K/mm3 Baso # (Auto) (0.01-0.08) K/mm3 Manual Slide Review Urine Opiates Screen (KZCTUB=460) Ur Buprenorphine Scrn (CUTOFF=10) Ur Oxycodone Screen (FZN9ST=013) Urine Methadone Screen (ZWUEHH=760) Ur Propoxyphene Screen (DIQNQA=015) Ur Barbiturates Screen (DXUBPP=923) Ur Tricyclics Screen (VUXCTG=741) Ur Phencyclidine Scrn (CUTOFF=25) Ur Amphetamine Screen (YJUHBS=508) U Methamphetamines Scrn (CPSTJF=237) U Benzodiazepines Scrn (ZGGWDA=255) U Cocaine Metab Screen (COGOAX=653) U Marijuana (THC) Screen (CUTOFF=50) COVID-19 (LISBET) Positive H (NEGATIVE) Blood Type Gel Antibody Screen Med Orders - Current: Current Medications Diphenhydramine HCl (Benadryl) 25 mg IVPUSH Q6H PRN PRN Reason: pruritis Ephedrine Sulfate (Ephedrine Sulfate) 5 mg IVPUSH ASDIRECTED PRN PRN Reason: Hypotension Fentanyl (Sublimaze) 100 mcg EPIDUR Q3H PRN PRN Reason: Pain Last Admin: 05/11/20 09:52 Dose: 100 mcg Documented by: Fentanyl/Bupivacaine HCl (Fentanyl/Bupivacaine/Ns 2 Mcg-0.125% 100 Ml) 100 ml EPIDUR ASDIRECTED PRN PRN Reason: Pain Last Admin: 05/11/20 09:53 Dose: 100 ml Documented by: Oxytocin/Lactated Ringer's (Pitocin In Lr 20 Units/1,000 Ml) 20 unit in 1,000 mls @ 100 mls/hr IV .CONTINUOUS NELIA Last Admin: 05/11/20 13:04 Dose: 250 mls/hr Documented by: Lactated Ringer's (Ringers, Lactated) 1,000 mls @ 100 mls/hr IV ASDIRECTED NELIA Last Admin: 05/11/20 09:57 Dose: 500 mls/hr Documented by: Nalbuphine HCl (Nubain) 10 mg IVPUSH Q2H PRN PRN Reason: Pain Sodium Chloride (Saline Flush) 10 ml FLUSH ASDIRECTED PRN PRN Reason: Keep Vein Open Discontinued Medications Oxytocin/Lactated Ringer's (Pitocin In Lr 20 Units/1,000 Ml) Confirm Administered Dose 20 unit in 1,000 mls @ as directed .ROUTE .STK-MED ONE Stop: 05/11/20 07:55 Cefazolin Sodium/Dextrose 2 gm (/ Premix) 50 mls @ 100 mls/hr IV ONETIME ONE Stop: 05/11/20 09:47 Last Admin: 05/11/20 09:26 Dose: 100 mls/hr Documented by: Lidocaine HCl (Xylocaine 1%) Confirm Administered Dose 50 ml .ROUTE .STK-MED ONE Stop: 05/11/20 08:02 - Exam General: Alert, Oriented HEENT: Pupils Equal (dilated 5 mm H/O urine postive THC,Amphetamine and methamphetamine), Mucous Membr. Moist/[place] Neck: Supple Lungs: Clear to Auscultation, Normal Respiratory Effort Cardiovascular: Regular Rate, Regular Rhythm Extremities: Normal Inspection, Non-Tender, No Pedal Edema, Normal Capillary Refill Skin: Warm, Dry, Intact Psy/Mental Status: Alert - Problem List & Annotations (1) 36 weeks gestation of SNOMED Code(s): 67278633 Code(s): Z3A.36 - 36 WEEKS GESTATION OF Status: Acute Current Visit: Yes (2) GBS carrier SNOMED Code(s): 8082819861990 Code(s): Z22.330 - CARRIER OF GROUP B STREPTOCOCCUS Status: Acute Current Visit: Yes (3) Nuchal cord with compression, delivered, current hospitalization SNOMED Code(s): 513499144, 685007140 Code(s): O69.1XX0 - LABOR AND DELIVERY COMP BY CORD AROUND NECK, W COMPRSN, UNSP Status: Acute Current Visit: Yes (4) Placental abruption, delivered, current hospitalization SNOMED Code(s): 823838905, 277635534, 240328380 Code(s): O45.90 - PREMATURE SEPARATION OF PLACENTA, UNSP, UNSP TRIMESTER Status: Acute Current Visit: Yes (5) Vacuum extraction, delivered, current hospitalization SNOMED Code(s): 978468764 Code(s): O66.5 - ATTEMPTED APPLICATION OF VACUUM EXTRACTOR AND FORCEPS Status: Acute Current Visit: Yes (6) COVID-19 affecting , antepartum SNOMED Code(s): 146093750 Code(s): O98.519 - OTHER VIRAL DISEASES COMPLICATING , UNSP TRIMESTER; U07.1 - COVID-19 Status: Acute Current Visit: Yes (7) Marijuana abuse SNOMED Code(s): 36062189 Code(s): F12.10 - CANNABIS ABUSE, UNCOMPLICATED Status: Acute Current Visit: No (8) Methamphetamine abuse SNOMED Code(s): 530772547 Code(s): F15.10 - OTHER STIMULANT ABUSE, UNCOMPLICATED Status: Acute Current Visit: No - Problem List Review Problem List Initiated/Reviewed/Updated: No - My Orders Last 24 Hours: My Active Orders 05/11/20 07:50 Activity as Tolerated [RC] PFP Communication Order [RC] ASDIRECTED Heart Tones [RC] ASDIRECTED Notify Provider [RC] PFP Notify Provider [RC] PRN Peripheral IV Care [RC] . DIRECTED Vital Signs [RC] PER UNIT ROUTINE Nalbuphine [Nubain] 10 mg IVPUSH Q2H PRN Sodium Chloride 0.9% [Saline Flush] 10 ml FLUSH ASDIRECTED PRN Electronic Heart Tones Ext w TOCO [WOMSER] Routine Electronic Heart Tones Internal [WOMSER] Per Unit Routine Peripheral IV Insertion Adult [OM.PC] Routine Resuscitation Status Routine 05/11/20 08:00 Lactated Ringers [Ringers, Lactated] 1,000 ml IV ASDIRECTED Oxytocin/Lactated Ringers [Pitocin in LR 20 Units/1,000 ML] 20 unit in 1,000 ml IV .CONTINUOUS 05/11/20 08:11 ANTIBODY IDENTIFICATION [BBK] Stat RAPID PLASMA REAGIN,RPR [CHEM] Stat TYPE AND SCREEN [BBK] Stat 05/11/20 10:00 CORONAVIRUS COVID-19 PCR PHL Stat 05/11/20 10:40 DRUG SCR 10 W REF CONF SERUM [REF] Stat 05/11/20 Lunch Regular Diet [DIET] 05/11/20 11:35 Urinary Catheter Assessment [RC] ASDIRECTED 05/11/20 11:45 Insert [place] Catheter [Insert Urinary Catheter] [OM.PC] Q24H 05/11/20 11:54 Consult to Case Management/[place] Hole Puncher [CONS] Routine 05/11/20 12:49 Patient Status [ADT] Routine - Plan Plan:: UA, UDS, CBC, RPR, type and screen ordered. Plan delivery.
[2020-05-11] MEDS: Lidocaine 1% 50 ML MDV ONE ×3 (13:58→14:02)
[2020-05-11] MEDS ORDERED: Benzocaine/Menthol 20%-0.5% Spray 56 GM Canister TOP PRN (15:28)
[2020-05-11] MEDS ORDERED: Witch Hazel Medicated Pads 40/Jar TOP PRN (15:28)
[2020-05-11] MEDS: Nicotine 14 MG/24 Hr Patch TRDERM SCH (16:40)
[2020-05-11] MEDS: Docusate Sodium 100 MG Cap PO PRN (16:43)
[2020-05-11] MEDS ORDERED: Ondansetron 4 MG/2 ML SDV IVPUSH PRN (16:55)
[2020-05-11] MEDS: Acetaminophen 325 MG Tab PO PRN (20:43)
--- NOTE | 2020-05-12 07:27 | PCM48HPAN ---
Post Anesthesia Note - EVALUATION WITHIN 48HRS OF ANESTHETIC Vital Signs in Normal Range: Yes Patient Participated in Evaluation: Yes Respiratory Function Stable: Yes Airway Patent: Yes Cardiovascular Function Stable: Yes Hydration Status Stable: Yes Pain Control Satisfactory: Yes Nausea and Vomiting Control Satisfactory: Yes Mental Status Recovered: Yes Vital Signs: Last Vital Signs Temp 37.0 C 05/12/20 02:46 Pulse 54 L 05/12/20 02:46 Resp 15 05/12/20 02:46 BP 113/75 05/12/20 02:46 Pulse Ox 98 05/12/20 02:46 - COMMENTS/OBSERVATIONS Free Text/Narrative:: no anesthesia complications noted
[2020-05-12] MEDS: Acetaminophen 325 MG Tab PO PRN ×3 (09:00→21:06)
[2020-05-12] MEDS: Nicotine 14 MG/24 Hr Patch TRDERM SCH (09:00)
--- NOTE | 2020-05-12 10:05 | PCM.SN.2 ---
- Free Text/Narrative Note: day 1 Afebrile. No cough no chest congestion no complaints. Has nicotine patch in place. Chest clear no cardiovascular abnormalities noted abdomen soft uterus involuting normally no heavy vaginal bleeding no leg cramping probably dismissed tomorrow. Symptoms related to COVID-19. Rapid test was positive confirmatory test has been ordered.
[2020-05-12] MEDS: Docusate Sodium 100 MG Cap PO PRN (16:41)
[2020-05-13] MEDS: Nicotine 14 MG/24 Hr Patch TRDERM SCH (08:47)
[2020-05-13] MEDS: Acetaminophen 325 MG Tab PO PRN (09:08)
--- NOTE | 2020-05-13 09:16 | PCM.DCSUM1 ---
Discharge Summary - Hospital Course Free Text/Narrative:: [place] LIVE L/D Delivery Note Patient Name: GUICHO PORTER Date of : 89 Patient Status: Inpatient Attending Provider: Enrique Solorio Date: 05/11/20 13:15 Initialization Date: 05/11/20 13:15 L & D Note - General Info Date of Service: 05/11/20 Mother's Due Date: 06/05/20 - Delivery Note Labor: Spontaneous, Augmented by ARM (when complete) Cervical Ripening Method: Oxytocin Delivery Outcome: Livebirth (Female liveborn 05/[birth year]/2020 1252 hours with assistance of vacuum extraction for 45 seconds in the green nuchal cord x1 tight (because of terminal bradycardia requiring vacuum) DANIEL 03/14 weight 2140 g 4 pounds 11.5 ounces) Delivery Method: Spontaneous Vaginal Delivery-Single Infant Delivery Mode: Vacuum Extraction (45 seconds in green) Presentation: Right Occiput Anterior (DANIEL) Nuchal Cord: Present (x1 tight reduced over head) Prep: Povidone-Iodine (Betadine Anesthesia Type: Combined Spinal Epidural, Local (Local augmentation for anesthesia for episiotomy repair (midline no lacerations)) Anesthetic: Lidocaine (Xylocaine) 1% Plain Local Anesthetic Volume: 5cc Amniotic Fluid Description: Bloody (No bloody anesthesia consistent with her 5% marginal abruption) Episiotomy Type: Midline Laceration: None Suture type: Other (Monocryl x1) Suture size: 3-0 Placenta: Intact, Spontaneous (12 55 hours Wednesday05/11/2020 20% marginal abruption) Cord: 3 Vessels Estimated Blood Loss: 250 Resuscitation Needed: No : Suctioned, Bulb Syringe, Stimulated, Warmed, Anderson Used, Warmer Used Provider: Enrique Solorio Score 1 min: 7 Score 5 min: 9 Vacuum Extractor Progress Note - Alternative Labor Strategies Considered Alternative Labor Strategies Considered:: Reports: No (None available except section versus vacuum extraction) Indications Considered:: Reports: Yes Indications:: Reports: Suspicion of Immediate or Potential Compromise Time Out:: Reports: Yes - Patient Prepared Patient Prepared:: Reports: Yes Informed Consent:: Reports: Verbal Risks: Reports: Yes Risks Include:: Reports: Laceration, Shoulder Dystocia, Maternal Injury Anesthesia/Analgesia Adequate:: Reports: Yes - Probability of Success High Probability of Success:: Reports: Yes Weight Estimated:: Reports: SGA Patient Diabetic:: Reports: No Pelvis Adequate:: Reports: Yes Asynclitic:: Reports: No - Application Time Maximum Application Time & Number of Pop-Offs Predetermined:: Reports: Yes (3 (no pop offs occurred)) Maximum Pressure Maintained in Green Zone (cm Hg):: 20 Total Application Time (min): *max=20min: 45 (seconds) Number of Times Cup Disengaged:: 0 Type of Vacuum Used:: Reports: Cup: Mushroom type Vacuum Extraction: Successful - Exit Strategy Exit strategy available:: Reports: Yes and resuscitation teams readily available:: Reports: Yes Comments:: no problems with vacuum extraction - General Info Date of Service: 05/11/20 Functional Status: Reports: Pain Controlled - Review of Systems General: Reports: No Symptoms HEENT: Reports: No Symptoms Pulmonary: Reports: No Symptoms Cardiovascular: Reports: No Symptoms Gastrointestinal: Reports: No Symptoms Genitourinary: Reports: No Symptoms Musculoskeletal: Reports: No Symptoms Skin: Reports: No Symptoms Neurological: Reports: No Symptoms Psychiatric: Reports: No Symptoms - Patient Data Vitals - Most Recent: Last Vital Signs Temp 96.6 F L 05/11/20 07:50 Pulse 67 05/11/20 11:30 Resp 20 05/11/20 07:50 BP 147/85 H 05/11/20 09:30 Pulse Ox 100 05/11/20 10:30 Weight - Most Recent: 118 lb Lab Results Last 24 Hours: Laboratory Results - last 24 hr 05/11/20 05/11/20 05/11/20 Range/Units 08:08 08:11 08:11 WBC 17.03 H (3.98-10.04) K/mm3 RBC 3.61 L (3.98-5.22) M/mm3 Hgb 9.7 L D (11.2-15.7) gm/dl Hct 31.4 L (34.1-44.9) % MCV 87.0 D (79.4-94.8) fl MCH 26.9 (25.6-32.2) pg MCHC 30.9 L (32.2-35.5) g/dl RDW Std Deviation 44.5 (36.4-46.3) fL Plt Count 457 H D (182-369) K/mm3 MPV 9.5 (9.4-12.3) fl Neut % (Auto) 63.7 (34.0-71.1) % Lymph % (Auto) 18.3 L (19.3-51.7) % [place] % (Auto) 15.0 H (4.7-12.5) % Eos % (Auto) 0.4 L (0.7-5.8) Baso % (Auto) 0.2 (0.1-1.2) % Neut # (Auto) 10.84 H (1.56-6.13) K/mm3 Lymph # (Auto) 3.12 (1.18-3.74) K/mm3 [place] # (Auto) 2.56 H (0.24-0.36) K/mm3 Eos # (Auto) 0.06 (0.04-0.36) K/mm3 Baso # (Auto) 0.04 (0.01-0.08) K/mm3 Manual Slide Review Abnormal smear Urine Opiates Screen Negative (OIGYBH=486) Ur Buprenorphine Scrn Negative (CUTOFF=10) Ur Oxycodone Screen Negative (OIU4NY=432) Urine Methadone Screen Negative (XSJVSK=627) Ur Propoxyphene Screen Negative (EVWEYG=512) Ur Barbiturates Screen Negative (UYPHOB=710) Ur Tricyclics Screen Negative (JNBVFV=506) Ur Phencyclidine Scrn Negative (CUTOFF=25) Ur Amphetamine Screen Presumptive positive H (JKRBVE=653) U Methamphetamines Scrn Presumptive positive H (CWXJMH=669) U Benzodiazepines Scrn Negative (PQUUWT=504) U Cocaine Metab Screen Negative (TDOJDJ=898) U Marijuana (THC) Screen Presumptive positive H (CUTOFF=50) COVID-19 (LISBET) (NEGATIVE) Blood Type B NEGATIVE Gel Antibody Screen Positive 05/11/20 Range/Units 08:35 WBC (3.98-10.04) K/mm3 RBC (3.98-5.22) M/mm3 Hgb (11.2-15.7) gm/dl Hct (34.1-44.9) % MCV (79.4-94.8) fl MCH (25.6-32.2) pg MCHC (32.2-35.5) g/dl RDW Std Deviation (36.4-46.3) fL Plt Count (182-369) K/mm3 MPV (9.4-12.3) fl Neut % (Auto) (34.0-71.1) % Lymph % (Auto) (19.3-51.7) % [place] % (Auto) (4.7-12.5) % Eos % (Auto) (0.7-5.8) Baso % (Auto) (0.1-1.2) % Neut # (Auto) (1.56-6.13) K/mm3 Lymph # (Auto) (1.18-3.74) K/mm3 [place] # (Auto) (0.24-0.36) K/mm3 Eos # (Auto) (0.04-0.36) K/mm3 Baso # (Auto) (0.01-0.08) K/mm3 Manual Slide Review Urine Opiates Screen (PDWZST=508) Ur Buprenorphine Scrn (CUTOFF=10) Ur Oxycodone Screen (CGU0GJ=511) Urine Methadone Screen (KDUQVK=232) Ur Propoxyphene Screen (BCCOMG=472) Ur Barbiturates Screen (KZGHXS=176) Ur Tricyclics Screen (COLJBS=495) Ur Phencyclidine Scrn (CUTOFF=25) Ur Amphetamine Screen (JDNKVK=647) U Methamphetamines Scrn (KGSOHU=719) U Benzodiazepines Scrn (AYQVCS=113) U Cocaine Metab Screen (TEPODK=861) U Marijuana (THC) Screen (CUTOFF=50) COVID-19 (LISBET) Positive H (NEGATIVE) Blood Type Gel Antibody Screen Med Orders - Current: Current Medications Diphenhydramine HCl (Benadryl) 25 mg IVPUSH Q6H PRN PRN Reason: pruritis Ephedrine Sulfate (Ephedrine Sulfate) 5 mg IVPUSH ASDIRECTED PRN PRN Reason: Hypotension Fentanyl (Sublimaze) 100 mcg EPIDUR Q3H PRN PRN Reason: Pain Last Admin: 05/11/20 09:52 Dose: 100 mcg Documented by: Fentanyl/Bupivacaine HCl (Fentanyl/Bupivacaine/Ns 2 Mcg-0.125% 100 Ml) 100 ml EPIDUR ASDIRECTED PRN PRN Reason: Pain Last Admin: 05/11/20 09:53 Dose: 100 ml Documented by: Oxytocin/Lactated Ringer's (Pitocin In Lr 20 Units/1,000 Ml) 20 unit in 1,000 mls @ 100 mls/hr IV .CONTINUOUS NELIA Last Admin: 05/11/20 13:04 Dose: 250 mls/hr Documented by: Lactated Ringer's (Ringers, Lactated) 1,000 mls @ 100 mls/hr IV ASDIRECTED NELIA Last Admin: 05/11/20 09:57 Dose: 500 mls/hr Documented by: Nalbuphine HCl (Nubain) 10 mg IVPUSH Q2H PRN PRN Reason: Pain Sodium Chloride (Saline Flush) 10 ml FLUSH ASDIRECTED PRN PRN Reason: Keep Vein Open Discontinued Medications Oxytocin/Lactated Ringer's (Pitocin In Lr 20 Units/1,000 Ml) Confirm Administered Dose 20 unit in 1,000 mls @ as directed .ROUTE .STK-MED ONE Stop: 05/11/20 07:55 Cefazolin Sodium/Dextrose 2 gm (/ Premix) 50 mls @ 100 mls/hr IV ONETIME ONE Stop: 05/11/20 09:47 Last Admin: 05/11/20 09:26 Dose: 100 mls/hr Documented by: Lidocaine HCl (Xylocaine 1%) Confirm Administered Dose 50 ml .ROUTE .STK-MED ONE Stop: 05/11/20 08:02 - Exam General: Alert, Oriented HEENT: Pupils Equal (dilated 5 mm H/O urine postive THC,Amphetamine and methamphetamine), Mucous Membr. Moist/[place] Neck: Supple Lungs: Clear to Auscultation, Normal Respiratory Effort Cardiovascular: Regular Rate, Regular Rhythm Extremities: Normal Inspection, Non-Tender, No Pedal Edema, Normal Capillary Refill Skin: Warm, Dry, Intact Psy/Mental Status: Alert - Problem List & Annotations (1) 36 weeks gestation of SNOMED Code(s): 03495307 Code(s): Z3A.36 - 36 WEEKS GESTATION OF Status: Acute Current Visit: Yes (2) GBS carrier SNOMED Code(s): 0862546240201 Code(s): Z22.330 - CARRIER OF GROUP B STREPTOCOCCUS Status: Acute Current Visit: Yes (3) Nuchal cord with compression, delivered, current hospitalization SNOMED Code(s): 810244060, 730100262 Code(s): O69.1XX0 - LABOR AND DELIVERY COMP BY CORD AROUND NECK, W COMPRSN, UNSP Status: Acute Current Visit: Yes (4) Placental abruption, delivered, current hospitalization SNOMED Code(s): 962463336, 028709382, 372715414 Code(s): O45.90 - PREMATURE SEPARATION OF PLACENTA, UNSP, UNSP TRIMESTER Status: Acute Current Visit: Yes (5) Vacuum extraction, delivered, current hospitalization SNOMED Code(s): 706558310 Code(s): O66.5 - ATTEMPTED APPLICATION OF VACUUM EXTRACTOR AND FORCEPS Status: Acute Current Visit: Yes (6) COVID-19 affecting , antepartum SNOMED Code(s): 894531283 Code(s): O98.519 - OTHER VIRAL DISEASES COMPLICATING , UNSP TRIMESTER; U07.1 - COVID-19 Status: Acute Current Visit: Yes (7) Marijuana abuse SNOMED Code(s): 89857456 Code(s): F12.10 - CANNABIS ABUSE, UNCOMPLICATED Status: Acute Current Visit: No (8) Methamphetamine abuse SNOMED Code(s): 566276289 Code(s): F15.10 - OTHER STIMULANT ABUSE, UNCOMPLICATED Status: Acute Current Visit: No - Problem List Review Problem List Initiated/Reviewed/Updated: No - My Orders Last 24 Hours: My Active Orders 05/11/20 07:50 Activity as Tolerated [RC] PFP Communication Order [RC] ASDIRECTED Heart Tones [RC] ASDIRECTED Notify Provider [RC] PFP Notify Provider [RC] PRN Peripheral IV Care [RC] . DIRECTED Vital Signs [RC] PER UNIT ROUTINE Nalbuphine [Nubain] 10 mg IVPUSH Q2H PRN Sodium Chloride 0.9% [Saline Flush] 10 ml FLUSH ASDIRECTED PRN Electronic Heart Tones Ext w TOCO [WOMSER] Routine Electronic Heart Tones Internal [WOMSER] Per Unit Routine Peripheral IV Insertion Adult [OM.PC] Routine Resuscitation Status Routine 05/11/20 08:00 Lactated Ringers [Ringers, Lactated] 1,000 ml IV ASDIRECTED Oxytocin/Lactated Ringers [Pitocin in LR 20 Units/1,000 ML] 20 unit in 1,000 ml IV .CONTINUOUS 05/11/20 08:11 ANTIBODY IDENTIFICATION [BBK] Stat RAPID PLASMA REAGIN,RPR [CHEM] Stat TYPE AND SCREEN [BBK] Stat 05/11/20 10:00 CORONAVIRUS COVID-19 PCR PHL Stat 05/11/20 10:40 DRUG SCR 10 W REF CONF SERUM [REF] Stat 05/11/20 Lunch Regular Diet [DIET] 05/11/20 11:35 Urinary Catheter Assessment [RC] ASDIRECTED 05/11/20 11:45 Insert Dillon Catheter [Insert Urinary Catheter] [OM.PC] Q24H 05/11/20 11:54 Consult to Case Management/Plastic Sewer [CONS] Routine 05/11/20 12:49 Patient Status [ADT] Routine - Plan Plan:: UA, UDS, CBC, RPR, type and screen ordered. Plan delivery. HPI Initial Comments: [place] [facility] Delivery Note Patient Name: GUICHO PORTER Date of : [birth year] Patient Status: Inpatient Attending Provider: Enrique Solorio Date: 05/11/20 13:15 Initialization Date: 05/11/20 13:15 L & D Note - General Info Date of Service: 05/11/20 Mother's Due Date: 06/05/20 - Delivery Note Labor: Spontaneous, Augmented by ARM (when complete) Cervical Ripening Method: Oxytocin Delivery Outcome: Livebirth (Female liveborn 05/[birth year]/2020 1252 hours with assistance of vacuum extraction for 45 seconds in the green nuchal cord x1 tight (because of terminal bradycardia requiring vacuum) DANIEL 03/14 weight 2140 g 4 pounds 11.5 ounces) Delivery Method: Spontaneous Vaginal Delivery-Single Infant Delivery Mode: Vacuum Extraction (45 seconds in green) Presentation: Right Occiput Anterior (DANIEL) Nuchal Cord: Present (x1 tight reduced over head) Prep: Povidone-Iodine (Betadine Anesthesia Type: Combined Spinal Epidural, Local (Local augmentation for anesthesia for episiotomy repair (midline no lacerations)) Anesthetic: Lidocaine (Xylocaine) 1% Plain Local Anesthetic Volume: 5cc Amniotic Fluid Description: Bloody (No bloody anesthesia consistent with her 5% marginal abruption) Episiotomy Type: Midline Laceration: None Suture type: Other (Monocryl x1) Suture size: 3-0 Placenta: Intact, Spontaneous (12 55 hours Wednesday05/11/2020 20% marginal abruption) Cord: 3 Vessels Estimated Blood Loss: 250 Resuscitation Needed: No : Suctioned, Bulb Syringe, Stimulated, Warmed, Anderson Used, Warmer Used Provider: Enrique Solorio Score 1 min: 7 Score 5 min: 9 Vacuum Extractor Progress Note - Alternative Labor Strategies Considered Alternative Labor Strategies Considered:: Reports: No (None available except section versus vacuum extraction) Indications Considered:: Reports: Yes Indications:: Reports: Suspicion of Immediate or Potential Compromise Time Out:: Reports: Yes - Patient Prepared Patient Prepared:: Reports: Yes Informed Consent:: Reports: Verbal Risks: Reports: Yes Risks Include:: Reports: Laceration, Shoulder Dystocia, Maternal Injury Anesthesia/Analgesia Adequate:: Reports: Yes - Probability of Success High Probability of Success:: Reports: Yes Weight Estimated:: Reports: SGA Patient Diabetic:: Reports: No Pelvis Adequate:: Reports: Yes Asynclitic:: Reports: No - Application Time Maximum Application Time & Number of Pop-Offs Predetermined:: Reports: Yes (3 (no pop offs occurred)) Maximum Pressure Maintained in Green Zone (cm Hg):: 20 Total Application Time (min): *max=20min: 45 (seconds) Number of Times Cup Disengaged:: 0 Type of Vacuum Used:: Reports: Cup: Mushroom type Vacuum Extraction: Successful - Exit Strategy Exit strategy available:: Reports: Yes and resuscitation teams readily available:: Reports: Yes Comments:: no problems with vacuum extraction - General Info Date of Service: 05/11/20 Functional Status: Reports: Pain Controlled - Review of Systems General: Reports: No Symptoms HEENT: Reports: No Symptoms Pulmonary: Reports: No Symptoms Cardiovascular: Reports: No Symptoms Gastrointestinal: Reports: No Symptoms Genitourinary: Reports: No Symptoms Musculoskeletal: Reports: No Symptoms Skin: Reports: No Symptoms Neurological: Reports: No Symptoms Psychiatric: Reports: No Symptoms - Patient Data Vitals - Most Recent: Last Vital Signs Temp 96.6 F L 05/11/20 07:50 Pulse 67 05/11/20 11:30 Resp 20 05/11/20 07:50 BP 147/85 H 05/11/20 09:30 Pulse Ox 100 05/11/20 10:30 Weight - Most Recent: 118 lb Lab Results Last 24 Hours: Laboratory Results - last 24 hr 05/11/20 05/11/20 05/11/20 Range/Units 08:08 08:11 08:11 WBC 17.03 H (3.98-10.04) K/mm3 RBC 3.61 L (3.98-5.22) M/mm3 Hgb 9.7 L D (11.2-15.7) gm/dl Hct 31.4 L (34.1-44.9) % MCV 87.0 D (79.4-94.8) fl MCH 26.9 (25.6-32.2) pg MCHC 30.9 L (32.2-35.5) g/dl RDW Std Deviation 44.5 (36.4-46.3) fL Plt Count 457 H D (182-369) K/mm3 MPV 9.5 (9.4-12.3) fl Neut % (Auto) 63.7 (34.0-71.1) % Lymph % (Auto) 18.3 L (19.3-51.7) % [place] % (Auto) 15.0 H (4.7-12.5) % Eos % (Auto) 0.4 L (0.7-5.8) Baso % (Auto) 0.2 (0.1-1.2) % Neut # (Auto) 10.84 H (1.56-6.13) K/mm3 Lymph # (Auto) 3.12 (1.18-3.74) K/mm3 [place] # (Auto) 2.56 H (0.24-0.36) K/mm3 Eos # (Auto) 0.06 (0.04-0.36) K/mm3 Baso # (Auto) 0.04 (0.01-0.08) K/mm3 Manual Slide Review Abnormal smear Urine Opiates Screen Negative (HWWXVM=614) Ur Buprenorphine Scrn Negative (CUTOFF=10) Ur Oxycodone Screen Negative (LQK3IY=165) Urine Methadone Screen Negative (NOKYNV=479) Ur Propoxyphene Screen Negative (TMPBKP=476) Ur Barbiturates Screen Negative (AXTATW=009) Ur Tricyclics Screen Negative (MYRWUE=055) Ur Phencyclidine Scrn Negative (CUTOFF=25) Ur Amphetamine Screen Presumptive positive H (CDJRGS=104) U Methamphetamines Scrn Presumptive positive H (YLNQIX=034) U Benzodiazepines Scrn Negative (DZESWI=600) U Cocaine Metab Screen Negative (OVTDVL=072) U Marijuana (THC) Screen Presumptive positive H (CUTOFF=50) COVID-19 (LISBET) (NEGATIVE) Blood Type B NEGATIVE Gel Antibody Screen Positive 05/11/20 Range/Units 08:35 WBC (3.98-10.04) K/mm3 RBC (3.98-5.22) M/mm3 Hgb (11.2-15.7) gm/dl Hct (34.1-44.9) % MCV (79.4-94.8) fl MCH (25.6-32.2) pg MCHC (32.2-35.5) g/dl RDW Std Deviation (36.4-46.3) fL Plt Count (182-369) K/mm3 MPV (9.4-12.3) fl Neut % (Auto) (34.0-71.1) % Lymph % (Auto) (19.3-51.7) % [place] % (Auto) (4.7-12.5) % Eos % (Auto) (0.7-5.8) Baso % (Auto) (0.1-1.2) % Neut # (Auto) (1.56-6.13) K/mm3 Lymph # (Auto) (1.18-3.74) K/mm3 [place] # (Auto) (0.24-0.36) K/mm3 Eos # (Auto) (0.04-0.36) K/mm3 Baso # (Auto) (0.01-0.08) K/mm3 Manual Slide Review Urine Opiates Screen (XFLTBI=207) Ur Buprenorphine Scrn (CUTOFF=10) Ur Oxycodone Screen (IOA1RB=463) Urine Methadone Screen (HXLMHI=973) Ur Propoxyphene Screen (ENLYAW=756) Ur Barbiturates Screen (GCOCSE=277) Ur Tricyclics Screen (QWZLKD=526) Ur Phencyclidine Scrn (CUTOFF=25) Ur Amphetamine Screen (OELRYS=504) U Methamphetamines Scrn (EPYIXQ=381) U Benzodiazepines Scrn (SIMJRE=268) U Cocaine Metab Screen (EMFLDK=817) U Marijuana (THC) Screen (CUTOFF=50) COVID-19 (LISBET) Positive H (NEGATIVE) Blood Type Gel Antibody Screen Med Orders - Current: Current Medications Diphenhydramine HCl (Benadryl) 25 mg IVPUSH Q6H PRN PRN Reason: pruritis Ephedrine Sulfate (Ephedrine Sulfate) 5 mg IVPUSH ASDIRECTED PRN PRN Reason: Hypotension Fentanyl (Sublimaze) 100 mcg EPIDUR Q3H PRN PRN Reason: Pain Last Admin: 05/11/20 09:52 Dose: 100 mcg Documented by: Fentanyl/Bupivacaine HCl (Fentanyl/Bupivacaine/Ns 2 Mcg-0.125% 100 Ml) 100 ml EPIDUR ASDIRECTED PRN PRN Reason: Pain Last Admin: 05/11/20 09:53 Dose: 100 ml Documented by: Oxytocin/Lactated Ringer's (Pitocin In Lr 20 Units/1,000 Ml) 20 unit in 1,000 mls @ 100 mls/hr IV .CONTINUOUS NELIA Last Admin: 05/11/20 13:04 Dose: 250 mls/hr Documented by: Lactated Ringer's (Ringers, Lactated) 1,000 mls @ 100 mls/hr IV ASDIRECTED NELIA Last Admin: 05/11/20 09:57 Dose: 500 mls/hr Documented by: Nalbuphine HCl (Nubain) 10 mg IVPUSH Q2H PRN PRN Reason: Pain Sodium Chloride (Saline Flush) 10 ml FLUSH ASDIRECTED PRN PRN Reason: Keep Vein Open Discontinued Medications Oxytocin/Lactated Ringer's (Pitocin In Lr 20 Units/1,000 Ml) Confirm Administered Dose 20 unit in 1,000 mls @ as directed .ROUTE .STK-MED ONE Stop: 05/11/20 07:55 Cefazolin Sodium/Dextrose 2 gm (/ Premix) 50 mls @ 100 mls/hr IV ONETIME ONE Stop: 05/11/20 09:47 Last Admin: 05/11/20 09:26 Dose: 100 mls/hr Documented by: Lidocaine HCl (Xylocaine 1%) Confirm Administered Dose 50 ml .ROUTE .STK-MED ONE Stop: 05/11/20 08:02 - Exam General: Alert, Oriented HEENT: Pupils Equal (dilated 5 mm H/O urine postive THC,Amphetamine and methamphetamine), Mucous Membr. Moist/[place] Neck: Supple Lungs: Clear to Auscultation, Normal Respiratory Effort Cardiovascular: Regular Rate, Regular Rhythm Extremities: Normal Inspection, Non-Tender, No Pedal Edema, Normal Capillary Refill Skin: Warm, Dry, Intact Psy/Mental Status: Alert - Problem List & Annotations (1) 36 weeks gestation of SNOMED Code(s): 71453920 Code(s): Z3A.36 - 36 WEEKS GESTATION OF Status: Acute Current Visit: Yes (2) GBS carrier SNOMED Code(s): 0388222482218 Code(s): Z22.330 - CARRIER OF GROUP B STREPTOCOCCUS Status: Acute Current Visit: Yes (3) Nuchal cord with compression, delivered, current hospitalization SNOMED Code(s): 922462926, 987581981 Code(s): O69.1XX0 - LABOR AND DELIVERY COMP BY CORD AROUND NECK, W COMPRSN, UNSP Status: Acute Current Visit: Yes (4) Placental abruption, delivered, current hospitalization SNOMED Code(s): 593010630, 745604370, 497853937 Code(s): O45.90 - PREMATURE SEPARATION OF PLACENTA, UNSP, UNSP TRIMESTER Status: Acute Current Visit: Yes (5) Vacuum extraction, delivered, current hospitalization SNOMED Code(s): 606402041 Code(s): O66.5 - ATTEMPTED APPLICATION OF VACUUM EXTRACTOR AND FORCEPS Status: Acute Current Visit: Yes (6) COVID-19 affecting , antepartum SNOMED Code(s): 573162870 Code(s): O98.519 - OTHER VIRAL DISEASES COMPLICATING , UNSP TRIMESTER; U07.1 - COVID-19 Status: Acute Current Visit: Yes (7) Marijuana abuse SNOMED Code(s): 86261776 Code(s): F12.10 - CANNABIS ABUSE, UNCOMPLICATED Status: Acute Current Visit: No (8) Methamphetamine abuse SNOMED Code(s): 028918882 Code(s): F15.10 - OTHER STIMULANT ABUSE, UNCOMPLICATED Status: Acute Current Visit: No - Problem List Review Problem List Initiated/Reviewed/Updated: No - My Orders Last 24 Hours: My Active Orders 05/11/20 07:50 Activity as Tolerated [RC] PFP Communication Order [RC] ASDIRECTED Heart Tones [RC] ASDIRECTED Notify Provider [RC] PFP Notify Provider [RC] PRN Peripheral IV Care [RC] . DIRECTED Vital Signs [RC] PER UNIT ROUTINE Nalbuphine [Nubain] 10 mg IVPUSH Q2H PRN Sodium Chloride 0.9% [Saline Flush] 10 ml FLUSH ASDIRECTED PRN Electronic Heart Tones Ext w TOCO [WOMSER] Routine Electronic Heart Tones Internal [WOMSER] Per Unit Routine Peripheral IV Insertion Adult [OM.PC] Routine Resuscitation Status Routine 05/11/20 08:00 Lactated Ringers [Ringers, Lactated] 1,000 ml IV ASDIRECTED Oxytocin/Lactated Ringers [Pitocin in LR 20 Units/1,000 ML] 20 unit in 1,000 ml IV .CONTINUOUS 05/11/20 08:11 ANTIBODY IDENTIFICATION [BBK] Stat RAPID PLASMA REAGIN,RPR [CHEM] Stat TYPE AND SCREEN [BBK] Stat 05/11/20 10:00 CORONAVIRUS COVID-19 PCR PHL Stat 05/11/20 10:40 DRUG SCR 10 W REF CONF SERUM [REF] Stat 05/11/20 Lunch Regular Diet [DIET] 05/11/20 11:35 Urinary Catheter Assessment [RC] ASDIRECTED 05/11/20 11:45 Insert Dillon Catheter [Insert Urinary Catheter] [OM.PC] Q24H 05/11/20 11:54 Consult to Case Management/Plastic Sewer [CONS] Routine 05/11/20 12:49 Patient Status [ADT] Routine - Plan Plan:: UA, UDS, CBC, RPR, type and screen ordered. Plan delivery. Brief History: [facility] LIVE . L[facility]D [facility] Note. [facility]: [id number]. Date of : [birth year]Patient Status: Inpatient. Attending Provider: Enrique Solorioount Number: [id number]. Date: 05/11/20 13:15Initialization Date: 05/11/20 13:15. L & D Note. - General Info. Date of Service: 05/11/20. Mother's Due Date: 06/05/20. - Delivery Note. Labor: Spontaneous, Augmented by ARM (when complete). Cervical Ripening Method: Oxytocin. Delivery Outcome: Livebirth (Female liveborn [birth year]2020 1252 hours with assistance of vacuum extraction for 45 seconds in the green nuchal cord x1 tight (because of terminal bradycardia requiring vacuum) DANIEL 03/14 weight 2140 g 4 pounds 11.5 ounces). Infant Delivery Method: Spontaneous Vaginal Delivery-Single. Delivery Mode: Vacuum Extraction (45 seconds in green). Presentation: Right Occiput Anterior (DANIEL). Nuchal Cord: Present (x1 tight reduced over head). Prep: Povidone-Iodine (Betadine. Anesthesia Type: Combined Spinal Epidural, Local (Local augmentation for anesthesia for episiotomy repair (midline no lacerations)). Anesthetic: Lidocaine (Xylocaine) 1% Plain. Local Anesthetic Volume: 5cc. Amniotic Fluid Description: Bloody (No bloody anesthesia consistent with her 5% marginal abruption). Episiotomy Type: Midline. Laceration: None. Suture type: Other (Monocryl x1). Suture size: 3-0. Placenta: Intact, Spontaneous (12 55 hours Wednesday05/11/2020 20% marginal abruption). Cord: 3 Vessels. Estimated Blood Loss: 250. Resuscitation Needed: No. : Suctioned, Bulb Syringe, Stimulated, Warmed, Anderson Used, Warmer Used. Provider: Enrique Solorio. Score 1 min: 7. Score 5 min: 9. Vacuum Extractor Progress Note. - Alternative Labor Strategies Considered. Alternative Labor Strategies Considered:: Reports: No (None available except section versus vacuum extraction). Indications Considered:: Reports: Yes. Indications:: Reports: Suspicion of Immediate or Potential Compromise. Time Out:: Reports: Yes. - Patient Prepared. Patient Prepared:: Reports: Yes. Informed Consent:: Reports: Verbal. Risks: Reports: Yes. Risks Include:: Reports: Laceration, Shoulder Dystocia, Maternal Injury. Anesthesia/Analgesia Adequate:: Reports: Yes. - Probability of Success. High Probability of Success:: Reports: Yes. Weight Estimated:: Reports: SGA. Patient Diabetic:: Reports: No. Pelvis Adequate:: Reports: Yes. Asynclitic:: Reports: No. - Application Time. Maximum Application Time & Number of Pop-Offs Predetermined:: Reports: Yes (3 (no pop offs occurred)). Maximum Pressure Maintained in Green Zone (cm Hg):: 20. Total Application Time (min): *max=20min: 45 (seconds). Number of Times Cup Disengaged:: 0. Type of Vacuum Used:: Reports: Cup: Mushroom type. Vacuum Extraction: Successful. - Exit Strategy. Exit strategy available:: Reports: Yes. and resuscitation teams readily available:: Reports: Yes. Comments:: no problems with vacuum extraction. - General Info. Date of Service: 05/11/20. Functional Status: Reports: Pain Controlled. - Review of Systems. General: Reports: No Symptoms. HEENT: Reports: No Symptoms. Pulmonary: Reports: No Symptoms. Cardiovascular: Reports: No Symptoms. Gastrointestinal: Reports: No Symptoms. Genitourinary: Reports: No Symptoms. Musculoskeletal: Reports: No Symptoms. Skin: Reports: No Symptoms. Neurological: Reports: No Symptoms. Psychiatric: Reports: No Symptoms. - Patient Data. Vitals - Most Recent: Last Vital Signs. Temp 96.6 F L 05/11/20 07:50. Pulse 67 05/11/20 11:30. Resp 20 05/11/20 07:50. BP 147/85 H 05/11/20 09:30. Pulse Ox 100 05/11/20 10:30. Weight - Most Recent: 118 lb. Lab Results Last 24 Hours: Laboratory Results - last 24 hr. 05/11/2009/01/2009Range/Units. 08:0808:1108:11. WBC 17.03 H (3.98- 10.04) K/mm3. RBC 3.61 L (3.98-5.22) M/mm3. Hgb 9.7 L D (11.2-15.7) gm/dl. Hct 31.4 L (34.1-44.9) %. MCV 87.0 D (79.4-94.8) fl. MCH 26.9 (25.6-32.2) pg. MCHC 30.9 L (32.2-35.5) g/dl. RDW Std Deviation 44.5 (36.4-46.3) fL. Plt Count 457 H D (182-369) K/mm3. MPV 9.5 (9.4-12.3) fl. Neut % (Auto) 63.7 (34.0-71.1) %. Lymph % (Auto) 18.3 L (19.3-51.7) %. [place] % (Auto) 15.0 H (4.7-12.5) %. Eos % (Auto) 0.4 L (0.7-5.8). Baso % (Auto) 0.2 (0.1-1.2) %. Neut # (Auto) 10.84 H (1.56-6.13) K/mm3. Lymph # (Auto) 3.12 (1.18-3.74) K/mm3. [place] # (Auto) 2.56 H (0.24-0.36) K/mm3. Eos # (Auto) 0.06 (0.04-0.36) K/mm3. Baso # (Auto) 0.04 (0.01-0.08) K/mm3. Manual Slide Review Abnormal sm ear. Urine Opiates Screen Negative (NFTTTW=473). Ur Buprenorphine Scrn Negative (CUTOFF=10). Ur Oxycodone Screen Negative (FBW7RM=076). Urine Methadone Screen Negative (DRPOML=937). Ur Propoxyphene Screen Negative (TYEFHC=772). Ur Barbiturates Screen Negative (GNKTWK=457). Ur Tricyclics Screen Negative (LZQIOO=022). Ur Phencyclidine Scrn Negative (CUTOFF=25). Ur Amphetamine Screen Presumptive positive H (HYEMEV=945). U Methamphetamines Scrn Presumptive positive H (YQZUHE=329). U Benzodiazepines Scrn Negative (MCZWEB=247). U Cocaine Metab Screen Negative (IZJDSH=173). U Marijuana (THC) Screen Presumptive positive H (CUTOFF=50). COVID-19 (LISBET) (NEGATIVE). Blood Type B NEGATIVE. Gel Antibody Screen Positive. 05/11/20Range/Units. 08:35. WBC (3.98-10.04) K/mm3. RBC (3.98-5.22) M/mm3. Hgb (11.2-15.7) gm/dl. Hct (34.1-44.9) %. MCV (79.4-94.8) fl. MCH (25.6-32.2) pg. MCHC (32.2-35.5) g/dl. RDW Std Deviation (36.4-46.3) fL. Plt Count (182-369) K/mm3. MPV (9. 4-12.3) fl. Neut % (Auto) (34.0-71.1) %. Lymph % (Auto) (19.3-51.7) %. [place] % (Auto) (4.7-12.5) %. Eos % (Auto) (0.7-5.8). Baso % (Auto) (0.1-1.2) %. Neut # (Auto) (1.56-6.13) K/mm3. Lymph # (Auto) (1.18-3.74) K/mm3. [place] # (Auto) (0.24-0.36) K/mm3. Eos # (Auto) (0.04-0.36) K/mm3. Baso # (Auto) (0.01-0.08) K/mm3. Manual Slide Review. Urine Opiates Screen (PFCGMW=001). Ur Buprenorphine Scrn (CUTOFF=10). Ur Oxycodone Screen (VEW8ZW=425). Urine Methadone Screen (JABGOO=399). Ur Propoxyphene Screen (QVMALH=709). Ur Barbiturates Screen (HCKXRQ=602). Ur Tricyclics Screen (IXSXSM=677). Ur Phencyclidine Scrn (CUTOFF=25). Ur Amphetamine Screen (WAJRKV=591). U Methamphetamines Scrn (RQJOHT=562). U Benzodiazepines Scrn (IWDKFN=747). U Cocaine Metab Screen (EYRFSN=896). U Marijuana (THC) Screen (CUTOFF=50). COVID-19 (LISBET) Positive H (NEGATIVE). Blood Type. Gel Antibody Screen. Med Orders - Current: Current Medications. Diphenhydramine HCl (Benadryl) 25 mg I VPUSH Q6H PRN. PRN Reason: pruritis. Ephedrine Sulfate (Ephedrine Sulfate) 5 mg IVPUSH ASDIRECTED PRN. PRN Reason: Hypotension. Fentanyl (Sublimaze) 100 mcg EPIDUR Q3H PRN. PRN Reason: Pain. Last Admin: 05/11/20 09:52 Dose: 100 mcg. Documented by: Fentanyl/Bupivacaine HCl (Fentanyl/Bupivacaine/Ns 2 Mcg- 0.125% 100 Ml) 100 ml EPIDUR ASDIRECTED PRN. PRN Reason: Pain. Last Admin: 05/11/20 09:53 Dose: 100 ml. Documented by: Oxytocin/Lactated Ringer's (Pitocin In Lr 20 Units/1,000 Ml) 20 unit in 1,000 mls @ 100 mls/hr IV .CONTINUOUS NELIA. Last Admin: 05/11/20 13:04 Dose: 250 mls/hr. Documented by: Lactated Ringer's (Ringers, Lactated) 1,000 mls @ 100 mls/hr IV ASDIRECTED NELIA. Last Admin: 05/11/20 09:57 Dose: 500 mls/hr. Documented by: Nalbuphine HCl (Nubain) 10 mg IVPUSH Q2H PRN. PRN Reason: Pain. Sodium Chloride (Saline Flush) 10 ml FLUSH ASDIRECTED PRN. PRN Reason: Keep Vein Open. Discontinued Medications. Oxytocin/Lactated Ringer's (Pitocin In Lr 20 Units/1,000 Ml) Confirm Administered Dose 20 unit in 1,000 mls @ as directed .ROUTE .STK-MED ONE. Stop: 05/11/20 07:55. Cefazolin Sodium/Dextrose 2 gm (/ Premix) 50 mls @ 100 mls/hr IV ONETIME ONE. Stop: 05/11/20 09:47. Last Admin: 05/11/20 09:26 Dose: 100 mls/hr. Documented by: Lidocaine HCl (Xylocaine 1%) Confirm Administered Dose 50 ml .ROUTE .STK-MED ONE. Stop: 05/11/20 08:02. - Exam. General: Alert, Oriented. HEENT: Pupils Equal (dilated 5 mm H/O urine postive THC,Amphetamine and methamphetamine), Mucous Membr. Moist/[place]. Neck: Supple. Lungs: Clear to Auscultation, Normal Respiratory Effort. Cardiovascular: Regular Rate, Regular Rhythm. Extremities: Normal Inspection, Non-Tender, No Pedal Edema, Normal Capillary Refill. Skin: Warm, Dry, Intact. Psy/Mental Status: Alert. - Problem List & Annotations. (1) 36 weeks gestation of . SNOMED Code(s): 35772814. Code(s): Z3A.36 - 36 WEEKS GESTATION OF Status: Acute Current Visit: Yes. (2) GBS carrier. SNOMED Code(s): 4991360059117. Code(s): Z22.330 - CARRIER OF GROUP B STREPTOCOCCUS Status: Acute Current Visit: Yes. (3) Nuchal cord with compression, delivered, current hospitalization. SNOMED Code(s): 115080994, 479611822. Code(s): O69.1XX0 - LABOR AND DELIVERY COMP BY CORD AROUND NECK, W COMPRSN, UNSP Status: Acute Current Visit: Yes. (4) Placental abruption, delivered, current hospitalization. SNOMED Code(s): 037275371, 292943034, 545860799. Code(s): O45.90 - PREMATURE SEPARATION OF PLACENTA, UNSP, UNSP TRIMESTER Status: Acute Current Visit: Yes. (5) Vacuum extraction, delivered, current hospitalization. SNOMED Code(s): 283691774. Code(s): O66.5 - ATTEMPTED APPLICATION OF VACUUM EXTRACTOR AND FORCEPS Status: Acute Current Visit: Yes. (6) COVID-19 affecting , antepartum. SNOMED Code(s): 504111360. Code(s): O98.519 - OTHER VIRAL DISEASES COMPLICATING , UNSP TRIMESTER; U07.1 - COVID-19 Status: Acute Current Visit: Yes. (7) Marijuana abuse. SNOMED Code(s): 70670558. Code(s): F12.10 - CANNABIS ABUSE, UNCOMPLICATED Status: Acute Current Visit: No. (8) Methamphetamine abuse. SNOMED Code(s): 194616559. Code(s): F15.10 - OTHER STIMULANT ABUSE, UNCOMPLICATED Status: Acute Current Visit: No. - Problem List Review. Problem List Initiated/Reviewed/Updated: No. - My Orders. Last 24 Hours: My Active Orders. 05/11/20 07:50. Activity as Tolerated [RC] PFP. Communication Order [RC] ASDIRECTED. Heart Tones [RC] ASDIRECTED. Notify Provider [RC] PFP. Notify Provider [RC] PRN. Peripheral IV Care [RC] . DIRECTED. Vital Signs [RC] PER UNIT ROUTINE. Nalbuphine [Nubain] 10 mg IVPUSH Q2H PRN. Sodium Chloride 0.9% [Saline Flush] 10 ml FLUSH ASDIRECTED PRN. Electronic Heart Tones Ext w TOCO [WOMSER] Routine. Electronic Heart Tones Internal [WOMSER] Per Unit Routine. Peripheral IV Insertion Adult [OM.PC] Routine. Resuscitation Status Routine. 05/11/20 08:00. Lactated Ringers [Ringers, Lactated] 1,000 ml IV ASDIRECTED. Oxytocin/Lactated Ringers [Pitocin in LR 20 Units/1,000 ML] 20 unit in 1,000 ml IV .CONTINUOUS. 05/11/20 08:11. ANTIBODY IDENTIFICATION [BBK] Stat. RAPID PLASMA REAGIN,RPR [CHEM] Stat. TYPE AND SCREEN [BBK] Stat. 05/11/20 10:00. CORONAVIRUS COVID-19 PCR PHL Stat. 05/11/20 10:40. DRUG SCR 10 W REF CONF SERUM [REF] Stat. 05/11/20 Lunch. Regular Diet [DIET]. 05/11/20 11:35. Urinary Catheter Assessment [RC] ASDIRECTED. 05/11/20 11:45. Insert [place] Catheter [Insert Urinary Catheter] [OM.PC] Q24H. 05/11/20 11:54. Consult to Case Management/Plastic Sewer [CONS] Routine. 05/11/20 12:49. Patient Status [ADT] Routine. - Plan. Plan:: UA, UDS, CBC, RPR, type and screen ordered. Plan delivery. Diagnosis: Stroke: No - Discharge Data Discharge Date: 05/13/20 Discharge Disposition: Home, Self-Care 01 Condition: Good - Referral to Home Health Primary Care Physician: Dennise Gonzales MD - Discharge Diagnosis/Problem(s) (1) 36 weeks gestation of SNOMED Code(s): 80889012 ICD Code: Z3A.36 - 36 WEEKS GESTATION OF Status: Acute Current Visit: Yes (2) GBS carrier SNOMED Code(s): 5325290033478 ICD Code: Z22.330 - CARRIER OF GROUP B STREPTOCOCCUS Status: Acute Current Visit: Yes (3) Nuchal cord with compression, delivered, current hospitalization SNOMED Code(s): 484488583, 700541676 ICD Code: O69.1XX0 - LABOR AND DELIVERY COMP BY CORD AROUND NECK, W COMPRSN, UNSP Status: Acute Current Visit: Yes (4) Placental abruption, delivered, current hospitalization SNOMED Code(s): 283114267, 527867681, 307960752 ICD Code: O45.90 - PREMATURE SEPARATION OF PLACENTA, UNSP, UNSP TRIMESTER Status: Acute Current Visit: Yes (5) Vacuum extraction, delivered, current hospitalization SNOMED Code(s): 261410396 ICD Code: O66.5 - ATTEMPTED APPLICATION OF VACUUM EXTRACTOR AND FORCEPS Status: Acute Current Visit: Yes (6) COVID-19 affecting , antepartum SNOMED Code(s): 260571090 ICD Code: O98.519 - OTHER VIRAL DISEASES COMPLICATING , UNSP TRIMESTER; U07.1 - COVID-19 Status: Acute Current Visit: Yes (7) Marijuana abuse SNOMED Code(s): 96247726 ICD Code: F12.10 - CANNABIS ABUSE, UNCOMPLICATED Status: Acute Current Visit: No (8) Methamphetamine abuse SNOMED Code(s): 384153139 ICD Code: F15.10 - OTHER STIMULANT ABUSE, UNCOMPLICATED Status: Acute Current Visit: No - Patient Summary/Data Complications: None Consults: None Hospital Course: Uneventful - Patient Instructions Diet: Usual Diet as Tolerated Driving: Do Not Drive (x48 hours) Showering/Bathing: May Shower Notify Provider of: Fever, Increased Pain, Swelling and Redness, Drainage, Nausea and/or Vomiting - Discharge Plan *PRESCRIPTION DRUG MONITORING PROGRAM REVIEWED*: Not Applicable *COPY OF PRESCRIPTION DRUG MONITORING REPORT IN PATIENT [place]: Not Applicable Prescriptions/Med Rec: Ibuprofen [Motrin] 400 mg PO Q6H PRN #50 tab PRN Reason: Pain Home Medications: Home Meds Acetaminophen [Tylenol] 975 mg PO Q4H PRN 05/11/20 [History] Pnv No.95/Ferrous Fum/Folic AC [ Vitamin Tablet] 1 each PO DAILY 05/11/20 [History] Acetaminophen [Tylenol] 650 mg PO Q6H PRN tablet 05/13/20 [Rx] Benzocaine/Menthol [Dermoplast Pain Relief [place]] 1 spray TOP ASDIRECTED PRN canister 05/13/20 [Rx] Docusate Sodium [Colace] 100 mg PO BID PRN cap 05/13/20 [Rx] Ibuprofen [Motrin] 400 mg PO Q6H PRN #50 tab 05/13/20 [Rx] witch Yoni [Tucks] 1 pad TOP ASDIRECTED PRN pad 05/13/20 [Rx] Referrals: Dennise Gonzales MD [Primary Care Provider] - (call Wednesday to make appointment to see Dr Gonzales) - Discharge Summary/Plan Comment DC Time >30 min.: No - Patient Data Vitals - Most Recent: Last Vital Signs Temp 98.4 F 05/13/20 04:07 Pulse 54 L 05/13/20 04:07 Resp 16 05/13/20 04:07 BP 137/83 05/13/20 04:07 Pulse Ox 99 05/13/20 04:07 Weight - Most Recent: 118 lb Lab Results - Last 24 hrs: Laboratory Results - last 24 hr 05/11/20 Range/Units 10:00 COVID-19 PCR Not detected (NOT DETECT) Med Orders - Current: Current Medications Acetaminophen (Tylenol) 650 mg PO Q4H PRN PRN Reason: mild pain or fever Last Admin: 05/13/20 09:08 Dose: 650 mg Documented by: Benzocaine/Menthol (Dermoplast Pain Relief [place]) 0 gm TOP ASDIRECTED PRN PRN Reason: Perineal Comfort Measure Last Admin: 05/11/20 16:39 Dose: 1 can Documented by: Docusate Sodium (Colace) 100 mg PO BID PRN PRN Reason: Constipation Last Admin: 05/12/20 16:41 Dose: 100 mg Documented by: Miscellaneous Information (Remove Patch) 1 ea TRDERM DAILY [facility] Last Admin: 05/13/20 08:45 Dose: 1 ea Documented by: Nicotine (Habitrol) 14 mg TRDERM DAILY [facility] Last Admin: 05/13/20 08:47 Dose: 14 mg Documented by: Ondansetron HCl (Zofran) 4 mg IVPUSH Q8H PRN PRN Reason: Nausea/Vomiting Last Admin: 05/11/20 17:29 Dose: 4 mg Documented by: Jens Denny (Haritha) 1 pad TOP ASDIRECTED PRN PRN Reason: Perineal Comfort Measure Last Admin: 05/11/20 16:35 Dose: 1 tube Documented by: Discontinued Medications Bupivacaine HCl (Sensorcaine-Mpf 0.25%) 10 ml .ROUTE .STK-MED ONE Stop: 05/11/20 10:01 Diphenhydramine HCl (Benadryl) 25 mg IVPUSH Q6H PRN PRN Reason: pruritis Ephedrine Sulfate (Ephedrine Sulfate) 5 mg IVPUSH ASDIRECTED PRN PRN Reason: Hypotension Fentanyl (Sublimaze) 100 mcg EPIDUR Q3H PRN PRN Reason: Pain Last Admin: 05/11/20 09:52 Dose: 100 mcg Documented by: Fentanyl/Bupivacaine HCl (Fentanyl/Bupivacaine/Ns 2 Mcg-0.125% 100 Ml) 100 ml EPIDUR ASDIRECTED PRN PRN Reason: Pain Last Admin: 05/11/20 09:53 Dose: 100 ml Documented by: Oxytocin/Lactated Ringer's (Pitocin In Lr 20 Units/1,000 Ml) 20 unit in 1,000 mls @ 100 mls/hr IV .CONTINUOUS NELIA Last Admin: 05/11/20 13:04 Dose: 250 mls/hr Documented by: Lactated Ringer's (Ringers, Lactated) 1,000 mls @ 100 mls/hr IV ASDIRECTED NELIA Last Admin: 05/11/20 09:57 Dose: 500 mls/hr Documented by: Oxytocin/Lactated Ringer's (Pitocin In Lr 20 Units/1,000 Ml) Confirm Administe red Dose 20 unit in 1,000 mls @ as directed .ROUTE .STK-MED ONE Stop: 05/11/20 07:55 Last Admin: 05/11/20 23:10 Dose: Not Given Documented by: Cefazolin Sodium/Dextrose 2 gm (/ Premix) 50 mls @ 100 mls/hr IV ONETIME ONE Stop: 05/11/20 09:47 Last Admin: 05/11/20 09:26 Dose: 100 mls/hr Documented by: Lidocaine HCl (Xylocaine 1%) Confirm Administered Dose 50 ml .ROUTE .STK-MED ONE Stop: 05/11/20 08:02 Last Admin: 05/11/20 14:02 Dose: Not Given Documented by: Lidocaine HCl (Xylocaine-Mpf 1%) 50 ml INJECT ONETIME ONE Stop: 05/11/20 14:01 Last Admin: 05/11/20 14:00 Dose: Not Given Documented by: Nalbuphine HCl (Nubain) 10 mg IVPUSH Q2H PRN PRN Reason: Pain Sodium Chloride (Saline Flush) 10 ml FLUSH ASDIRECTED PRN PRN Reason: Keep Vein Open
[2020-05-13 09:27] VITALS: BP 128/87; PULSE 62
== END 2020-05-13 10:00 | disposition home or self-care (01) | DRG 805 ==
LOC: JD.OB 07:42 → JD.OBCHECK 07:42 → JD.OB 12:49 → JD.OBCHECK 12:49 → OBSVTOIN 12:52 → JD.OB 12:53
PROVIDERS: ADMIT Obstetrics & Gynecology; ATTEND Obstetrics & Gynecology
PROC: 10D07Z6 Extraction of Products of Conception, Vacuum, Via Natural or Artificial Opening (ICD-10-PCS; principal; 2020-05-11)
PROC: 3E0P7VZ Introduction of Hormone into Female Reproductive, Via Natural or Artificial Opening (ICD-10-PCS; 2020-05-11)
PROC: 10907ZC Drainage of Amniotic Fluid, Therapeutic from Products of Conception, Via Natural or Artificial Opening (ICD-10-PCS; 2020-05-11)
PROC: 0W8NXZZ Division of Female Perineum, External Approach (ICD-10-PCS; 2020-05-11)
PROC: 3E0R3BZ Introduction of Anesthetic Agent into Spinal Canal, Percutaneous Approach (ICD-10-PCS; 2020-05-11)
DX: O69.1XX0 Labor and delivery complicated by cord around neck, with compression, not applicable or unspecified (principal); O45.93 Premature separation of placenta, unspecified, third trimester; Z37.0 Single live birth; O99.324 Drug use complicating childbirth; O99.824 Streptococcus B carrier state complicating childbirth; F15.10 Other stimulant abuse, uncomplicated; F12.10 Cannabis abuse, uncomplicated; Z20.828 Contact with and (suspected) exposure to other viral communicable diseases; Z3A.36 36 weeks gestation of pregnancy; Z91.018 Allergy to other foods; Z91.030 Bee allergy status; Z88.8 Allergy status to other drugs, medicaments and biological substances
CPT/HCPCS: 01967; 36415; 36430; 51702; 59025; 59409; 80306; 85025; 85461; 86592; 86850; 86870; 86900; 86901; A9270-GY; G0480; J0690; J2001; J2405; J2590; J2790; J3010; J3490; J7120; U0002

== ENCOUNTER 2021-02-01 23:51 | Emergency (ER) | payer MEDICAID ==
[2021-02-02 00:09] VITALS: BP 134/83; PULSE 100
== END 2021-02-02 01:31 | disposition left against medical advice (07) ==
LOC: JD.ED 23:51
DX: H92.01 Otalgia, right ear (principal); Z53.21 Procedure and treatment not carried out due to patient leaving prior to being seen by health care provider

== ENCOUNTER 2021-09-06 16:51 | Emergency (ER) | payer MEDICAID ==
[2021-09-06 17:21] VITALS: BP 127/95; PULSE 124
--- NOTE | 2021-09-06 17:29 | EDM.PDOC ---
ED HPI GENERAL MEDICAL PROBLEM - General Chief Complaint: Skin Complaint Stated Complaint: BUG BITE TO KNEE Time Seen by Provider: 09/06/21 17:28 - History of Present Illness INITIAL COMMENTS - FREE TEXT/NARRATIVE: 21-year-old female presents the emergency room with a sore developing on her left knee she wonders if she had a bug bite. Patient is not aware of any trauma to her knee. She did not see a bug actually bite her. Last evening she developed some redness around the lateral aspect of her left patella. Then she awoke this morning she had a blister developing over the center of this area and this is getting progressively larger. Patient has not had any fevers or chills she is not aware of having any prior history of skin infections. She does not believe she is at this time. Left Knee Pain Score (Numeric/FACES): 7 - Related Data Allergies Allergy/AdvReac Type Severity Reaction Status Date / Time coconut Allergy Intermediate Anaphylactic Verified 02/02/21 00:10 Shock bee venom protein (honey bee) Allergy Anaphylactic Verified 02/02/21 00:10 Shock ibuprofen AdvReac Vomiting Verified 02/02/21 00:10 Home Meds: Home Meds Sulfamethoxazole/Trimethoprim [Bactrim Ds Tablet] 1 each PO BID #18 tablet 09/06/21 [Rx] risperiDONE [Risperidone] 0.5 mg PO BID 09/06/21 [History] Past Medical History - Past Health History Medical/Surgical History: Denies Medical/Surgical History HEENT History: Reports: Impaired Vision Other HEENT History: wears glasses Cardiovascular History: Reports: Heart Murmur Respiratory History: Reports: Asthma Other Respiratory History: patient tells nurse no on admission Gastrointestinal History: Reports: GERD Genitourinary History: Reports: Pyelonephritis BOX MAKER History: Reports: , Spontaneous , Other (See Below) Musculoskeletal History: Reports: Back Pain, Chronic Neurological History: Reports: Migraines Psychiatric History: Reports: Addiction, Anxiety, Depression Hematologic History: Reports: Anemia Dermatologic History: Reports: Eczema - Infectious Disease History Infectious Disease History: Reports: Chicken Pox - Past Surgical History HEENT Surgical History: Reports: None Cardiovascular Surgical History: Reports: None Respiratory Surgical History: Reports: None GI Surgical History: Reports: None - History Comment History Comment: History of marijuana abuse, IV drug user, methamphetamine abuse. Patient states she last used in January 2020. She states she has been in rehab. Social & Family History - Family History Family Medical History: No Pertinent Family History - Tobacco Use Tobacco Use Status *Q: Current Every Day Tobacco User Years of Tobacco use: 3 Packs/Tins Daily: 0.3 - Caffeine Use Caffeine Use: Reports: Coffee, Energy Drinks - Recreational Drug Use Recreational Drug Use: Yes Drug Use in Last 12 Months: No Recreational Drug Type: Reports: Marijuana/Hashish Recreational Drug Use Frequency: Socially - Living Situation & Occupation Living situation: Reports: Single Occupation: Unemployed ED ROS GENERAL - Review of Systems Review Of Systems: See Below Constitutional: Reports: No Symptoms Respiratory: Reports: No Symptoms Cardiovascular: Reports: No Symptoms GI/Abdominal: Reports: No Symptoms : Reports: No Symptoms Skin: Reports: Other (See HPI) Neurological: Reports: No Symptoms ED EXAM, SKIN/RASH Exam: See Below Exam Limited By: No Limitations General Appearance: Alert, No Apparent Distress Head: Atraumatic, Normocephalic Neck: Normal Inspection, Supple, Non-Tender, Full Range of Motion Respiratory/Chest: No Respiratory Distress, Lungs Clear, Normal Breath Sounds Cardiovascular: Regular Rate, Rhythm, No Edema, No Murmur GI/Abdominal: Normal Bowel Sounds, Soft, Non-Tender Extremities: Other (She has redness and skin swelling over the lateral aspect of the left knee. Manipulation of the patella is not tender under this. And her pain seems to be fairly superficial) Neurological: Alert, Oriented, Normal Cognition Skin: Other (Patient has a 1 and half centimeter mostly circular round blister on top of the area of surrounding erythema with mild warmth. The blister was lanced draining purulent material,the skin removed cultures obtained bacitracin applied and a nonstick dressing applied the patient feels much better.) ED SKIN PROCEDURES - I&D Site: Lateral left knee anterior Skin Prep: Isopropyl Alcohol (Alcohol) Local Anesthesia: Lidocaine: Other (None) Area Incised With: Needle Drainage: Purulent, Moderate Amount Probed to Break Up Loculations: No Packed With: Other (Bacitracin with nonstick dressing secured with a loosely applied [place] wrap) Complications: No Progress/Comments: Very superficial bulla like 1-1/2 cm semi-circular opened with a 16-gauge needle excess skin debrided. Drained purulent material this was cultured. Patient tolerated this without difficulty and felt much better after it was done Course - Vital Signs Last Recorded V/S: Last Vital Signs Temp 36.6 C 09/06/21 17:18 Pulse 124 H 09/06/21 17:18 Resp 14 09/06/21 17:18 BP 127/95 H 09/06/21 17:18 Pulse Ox 100 09/06/21 17:18 - Orders/Labs/Meds Orders: Active Orders 24 hr Category Date Time Status Knee 3V Lt [CR] Stat Exams 09/06/21 19:32 Ordered CULTURE, ANAEROBE & AEROBE [MREF] Stat Lab 09/06/21 18:20 Received Labs: Laboratory Tests 09/06/21 09/06/21 09/06/21 Range/Units 19:00 19:00 19:00 WBC 11.86 H (3.98-10.04) K/mm3 RBC 4.78 (3.98-5.22) M/mm3 Hgb 13.7 D (11.2-15.7) gm/dl Hct 42.2 (34.1-44.9) % MCV 88.3 (79.4-94.8) fl MCH 28.7 (25.6-32.2) pg MCHC 32.5 (32.2-35.5) g/dl RDW Std Deviation 45.0 (36.4-46.3) fL Plt Count 281 D (182-369) K/mm3 MPV 9.4 (9.4-12.3) fl Neut % (Auto) 68.0 (34.0-71.1) % Lymph % (Auto) 21.7 (19.3-51.7) % [place] % (Auto) 8.9 (4.7-12.5) % Eos % (Auto) 0.9 (0.7-5.8) Baso % (Auto) 0.3 (0.1-1.2) % Neut # (Auto) 8.07 H (1.56-6.13) K/mm3 Lymph # (Auto) 2.57 (1.18-3.74) K/mm3 [place] # (Auto) 1.05 H (0.24-0.36) K/mm3 Eos # (Auto) 0.11 (0.04-0.36) K/mm3 Baso # (Auto) 0.04 (0.01-0.08) K/mm3 ESR 2 (0-20) mm/hr Sodium 139 (136-145) mEq/L Potassium 4.0 (3.5-5.1) mEq/L Chloride 104 (98-107) mEq/L Carbon Dioxide 23 (21-32) mEq/L Anion Gap 16.0 H (5-15) BUN 11 (7-18) mg/dL Creatinine 0.7 (0.55-1.02) mg/dL Est Cr Clr Drug Dosing 73.39 mL/min Estimated GFR (MDRD) > 60 (>60) mL/min BUN/Creatinine Ratio 15.7 (14-18) Glucose 71 (70-99) mg/dL Calcium 8.5 (8.5-10.1) mg/dL Total Bilirubin 0.4 (0.2-1.0) mg/dL AST 16 (15-37) U/L ALT 21 (14-59) U/L Alkaline Phosphatase 58 (46-116) U/L C-Reactive Protein <0.2 (<1.0) mg/dL Total Protein 7.2 (6.4-8.2) g/dl Albumin 3.9 (3.4-5.0) g/dl Globulin 3.3 gm/dL Albumin/Globulin Ratio 1.2 (1-2) HCG, Qual (NEGATIVE) 09/06/21 Range/Units 19:00 WBC (3.98-10.04) K/mm3 RBC (3.98-5.22) M/mm3 Hgb (11.2-15.7) gm/dl Hct (34.1-44.9) % MCV (79.4-94.8) fl MCH (25.6-32.2) pg MCHC (32.2-35.5) g/dl RDW Std Deviation (36.4-46.3) fL Plt Count (182-369) K/mm3 MPV (9.4-12.3) fl Neut % (Auto) (34.0-71.1) % Lymph % (Auto) (19.3-51.7) % [place] % (Auto) (4.7-12.5) % Eos % (Auto) (0.7-5.8) Baso % (Auto) (0.1-1.2) % Neut # (Auto) (1.56-6.13) K/mm3 Lymph # (Auto) (1.18-3.74) K/mm3 [place] # (Auto) (0.24-0.36) K/mm3 Eos # (Auto) (0.04-0.36) K/mm3 Baso # (Auto) (0.01-0.08) K/mm3 ESR (0-20) mm/hr Sodium (136-145) mEq/L Potassium (3.5-5.1) mEq/L Chloride (98-107) mEq/L Carbon Dioxide (21-32) mEq/L Anion Gap (5-15) BUN (7-18) mg/dL Creatinine (0.55-1.02) mg/dL Est Cr Clr Drug Dosing mL/min Estimated GFR (MDRD) (>60) mL/min BUN/Creatinine Ratio (14-18) Glucose (70-99) mg/dL Calcium (8.5-10.1) mg/dL Total Bilirubin (0.2-1.0) mg/dL AST (15-37) U/L ALT (14-59) U/L Alkaline Phosphatase (46-116) U/L C-Reactive Protein (<1.0) mg/dL Total Protein (6.4-8.2) g/dl Albumin (3.4-5.0) g/dl Globulin gm/dL Albumin/Globulin Ratio (1-2) HCG, Qual Negative (NEGATIVE) Meds: Medications Discontinued Medications Generic Name Dose Route Start Last Admin Trade Name Freq PRN Reason Stop Dose Admin Trimethoprim/Sulfamethoxazole 1 tab 09/06/21 19:55 Sulfamethoxazole/Trimethoprim 800-160 Mg Tab PO 09/06/21 19:56 ONETIME ONE Trimethoprim/Sulfamethoxazole 1 tab 09/06/21 19:56 Sulfamethoxazole/Trimethoprim 800-160 Mg Tab PO 09/06/21 19:57 ONETIME ONE - Re-Assessments/Exams Free Text/Narrative Re-Assessment/Exam: 09/06/21 18:45 And has had the dressing applied to her knee she is able to stand on it without any pain she has some discomfort when she tries to flex and extend it mostly due to the dressing applying pressure to the area the nonstick stick is held in place with an [place] wrap but overall she feels much better. Anticipate starting doxycycline or Bactrim DS waiting confirmation of her status 09/06/21 19:58 I went ahead and obtained an x-ray of the knee as her white count was approaching 12,000 C-reactive protein is normal. X-ray of the knee is noncont ributory no excessive soft tissue swelling or fluid noted around the knee. Patient be started on Bactrim DS 1 p.o. twice daily if we will start first dose now give her a dose to take in the morning and then a prescription to milk pickup driver at the [facility] pharmacy in the afternoon. Departure - Departure Time of Disposition: 19:59 Disposition: Home, Self-Care 01 Clinical Impression: Cellulitis and abscess of left lower extremity - Discharge Information Referrals: PCP,None [Primary Care Provider] - Forms: ED Department Discharge Additional Instructions: Return to the emergency room with any questions problems or worsening symptoms. You been started on a antibiotic called Bactrim DS take it twice daily you are given a dose to take here in the emergency room and another 1 to take home to take in the morning. A prescription has been sent electronically to [facility] up by [place] it is the only pharmacy open in the [facility] tomorrow. They are open between noon and 4 PM. If you have a regular healthcare provider follow-up with them the middle of this next week for recheck if not follow-up in the hospital clinic the phone number to schedule an appointment at the hospital clinic is [phone] follow-up on this lesion is essential. Sepsis Event Note (ED) - Evaluation Sepsis Screening Result: No Definite Risk - Focused Exam Vital Signs: Vital Signs Temp Pulse Resp BP Pulse Ox 09/06/21 17:18 36.6 C 124 H 14 127/95 H 100 - My Orders Last 24 Hours: My Active Orders 09/06/21 18:20 CULTURE, ANAEROBE & AEROBE [MREF] Stat 09/06/21 19:32 Knee 3V Lt [CR] Stat - Assessment/Plan Last 24 Hours: My Active Orders 09/06/21 18:20 CULTURE, ANAEROBE & AEROBE [MREF] Stat 09/06/21 19:32 Knee 3V Lt [CR] Stat
[2021-09-06] MEDS ORDERED: Sulfamethoxazole/Trimethoprim 800-160 MG Tab PO ONE ×2 (19:55→19:56)
--- NOTE | 2021-09-08 14:13 | CR ---
EXAM: XR KNEE 3 VIEWS LEFT LOCATION: [facility] [employer] DATE/TIME: 09/06/2021 7:42 PM INDICATION: Knee; left; patient hx: pain and redness s/p bug bite COMPARISON: None. IMPRESSION: Normal joint spaces and alignment. No fracture or joint effusion. No degenerative changes. No soft tissue swelling. SIGNED BY: Nima Macdonald MD 09/08/2021 12:11 PM ELIF
== END 2021-09-06 20:10 | disposition home or self-care (01) ==
LOC: JD.ED 16:51
DX: L03.116 Cellulitis of left lower limb (principal); L02.416 Cutaneous abscess of left lower limb; K21.9 Gastro-esophageal reflux disease without esophagitis; Z91.018 Allergy to other foods; Z91.030 Bee allergy status; Z88.8 Allergy status to other drugs, medicaments and biological substances; Z72.0 Tobacco use
CPT/HCPCS: 10060; 36415; 73562; 80053; 84703; 85025; 85652; 86140; 87070; 87077; 87186; 87205; 99283; A9270; 87075; 99284

== ENCOUNTER 2021-10-06 15:12 | Emergency (ER) | payer MEDICAID ==
[2021-10-06] MEDS ORDERED: HYDROmorphone 0.5 MG/0.5 ML Syringe IM ONE (16:25)
[2021-10-06] MEDS ORDERED: Lidocaine 1% 10 ML MDV INJECT ONE (16:25)
[2021-10-06 18:13] VITALS: BP 139/93; PULSE 64
== END 2021-10-06 18:16 | disposition home or self-care (01) ==
LOC: JD.ED 15:12
DX: L02.411 Cutaneous abscess of right axilla (principal); F17.210 Nicotine dependence, cigarettes, uncomplicated; Z86.14 Personal history of Methicillin resistant Staphylococcus aureus infection
CPT/HCPCS: 10060; 96372; 99282; J1170

== ENCOUNTER 2023-07-09 22:04 | Emergency (ER) | payer MEDICAID ==
[2023-07-09] MEDS: Sodium Chloride 0.9% 10 ML Syringe FLUSH PRN (23:15)
[2023-07-09 23:16] LABS: BASOPHILS ABSOLUTE AUTO 0.1 K/mm3 (0.0-0.2); BASOPHILS PERCENT AUTO 0.3 % (0.0-1.0); EOSINOPHILS ABSOLUTE AUTO 0.1 K/mm3 (0.0-0.4); EOSINOPHILS PERCENT AUTO 0.4 % (0.0-6.0); HEMATOCRIT 41.5 % (37.0-47.0); HEMOGLOBIN 14.3 gm/dl (12.0-16.0); IMMATURE GRAN ABSOLUTE AUTO 0.08 K/mm3 (0.00-0.05); IMMATURE GRAN PERCENT AUTO 0.4 % (0.0-0.4); LYMPHOCYTES ABSOLUTE AUTO 1.4 K/mm3 (1.0-4.8); LYMPHOCYTES PERCENT AUTO 7.2 % (24.0-44.0); MEAN CORPUSCULAR HEMOGLOBIN 29.7 pg (28.0-32.0); MEAN CORPUSCULAR HGB CONC 34.5 g/dl (32.0-36.0); MEAN CORPUSCULAR VOLUME 86.3 fl (83.0-99.0); MEAN PLATELET VOLUME 9.1 fl (9.4-12.3); MONOCYTES ABSOLUTE AUTO 0.8 K/mm3 (0.0-0.8); MONOCYTES PERCENT AUTO 4.3 % (0.0-8.0); NEUTROPHILS PERCENT AUTO 87.4 % (41.0-71.0); PLATELET COUNT,PLT 271 K/mm3 (150-400); RED BLOOD CELL COUNT 4.81 M/mm3 (4.10-5.30); WHITE BLOOD CELL COUNT,WBC 19.48 K/mm3 (3.9-11.3)
[2023-07-09 23:45] LABS: A/G RATIO 1.1 (1-2); ALANINE AMINOTRANSFERASE,ALT 14 U/L (14-59); ALBUMIN 4.3 g/dl (3.4-5.0); ALKALINE PHOSPHATASE 76 U/L (46-116); ANION GAP 14.9 (5-15); ASPARTATE AMNIOTRANSFERASE,AST 20 U/L (15-37); BILIRUBIN TOTAL 0.3 mg/dL (0.2-1.0); BLOOD UREA NITROGEN,BUN 12 mg/dL (7-18); BUN/CREATININE RATIO 13.3 (14-18); CALCIUM 9.2 mg/dL (8.5-10.1); CARBON DIOXIDE,CO2 23 mEq/L (21-32); CHLORIDE,CL 102 mEq/L (98-107); CREATININE 0.9 mg/dL (0.55-1.02); EST CRCL DRUG DOSING (CG) 67.91 mL/min; ESTIMATED GFR 91 mL/min (>60); GLUCOSE RANDOM 82 mg/dL (70-99); MAGNESIUM 1.7 mg/dL (1.8-2.4); PROTEIN TOTAL,TP 8.1 g/dl (6.4-8.2); SODIUM,NA 136 mEq/L (136-145)
[2023-07-10 00:03] LABS: APPEARANCE,URINE CLEAR (Clear); BILIRUBIN,URINE NEGATIVE (Negative); COLOR,URINE YELLOW (Yellow); GLUCOSE,URINE NEGATIVE (Negative); KETONES,URINE NEGATIVE (Negative); LEUKOCYTE ESTERASE,URINE TRACE (Negative); NITRITE,URINE NEGATIVE (Negative); OCCULT BLOOD,URINE TRACE-INTACT (Negative); PH,URINE 8.5 (5.0-8.0); PROTEIN,URINE NEGATIVE (Negative)
[2023-07-10 00:07] LABS: HCG QUANTITATIVE < 1.0 mIU/mL
[2023-07-10 00:08] LABS: POTASSIUM,K 3.9 mEq/L (3.5-5.1)
[2023-07-10] MEDS ORDERED: Sodium Chloride 0.9% 10 ML SDV FLUSH ONE (00:25)
[2023-07-10] MEDS ORDERED: Iopamidol 612 MG/ML 100 ML Bottle IVPUSH ONE (00:25)
[2023-07-10 00:27] LABS: BARBITURATE SCREEN,URINE NEGATIVE (CUTOFF=200); BENZODIAZEPINES SCREEN,URINE NEGATIVE (CUTOFF=150); BUPRENORPHINE SCREEN,URINE NEGATIVE (CUTOFF=10); METHADONE SCREEN, URINE NEGATIVE (CUTOFF=200); METHAMPHETAMINES SCREEN, URINE PRESUMPTIVE POSITIVE (CUTOFF=500); OXYCODONE SCREEN,URINE NEGATIVE (CUT0FF=100); THC SCREEN,URINE 20 NG/ML PRESUMPTIVE POSITIVE (CUTOFF=50)
[2023-07-10 00:29] LABS: AMPHETAMINES SCREEN, URINE PRESUMPTIVE POSITIVE (CUTOFF=500)
[2023-07-10 00:35] LABS: RBC,URINE 0-5 /hpf (0-5)
[2023-07-10 00:36] LABS: BACTERIA,URINE MODERATE /hpf (FEW); MUCUS,URINE FEW /hpf (FEW)
[2023-07-10] MEDS: Sodium Chloride 0.9% 10 ML Syringe FLUSH PRN (00:51)
[2023-07-10] MEDS ORDERED: Nitrofurantoin Monohydrate/Macrocrystalline 100 MG Cap PO ONE (01:26)
[2023-07-10 02:07] VITALS: BP 113/75; PULSE 119
== END 2023-07-10 01:45 | disposition home or self-care (01) ==
LOC: JD.ED 22:04
DX: K59.00 Constipation, unspecified (principal); N30.00 Acute cystitis without hematuria; J45.909 Unspecified asthma, uncomplicated; Z91.030 Bee allergy status; Z91.018 Allergy to other foods; Z88.6 Allergy status to analgesic agent
CPT/HCPCS: 36415; 74160; 80053; 80306; 81001; 83735; 84702; 85025; 99284; A9270; J3490; Q9967

== ENCOUNTER 2024-08-08 07:30 | Emergency (ER) | payer SELFPAY ==
[2024-08-08 10:49] VITALS: BP 133/94; PULSE 98
== END 2024-08-08 08:25 ==
LOC: JD.ED 07:30
DX: L03.012 Cellulitis of left finger (principal); F17.210 Nicotine dependence, cigarettes, uncomplicated; Z88.6 Allergy status to analgesic agent; Z91.018 Allergy to other foods; Z91.030 Bee allergy status
CPT/HCPCS: 99283